=== PATIENT | male | born 1945 | race Caucasian/White ===

== ENCOUNTER → 2019-08-09 12:38 | Outpatient (CLI) | payer MEDICARE, BC, SELFPAY ==
[2019-08-09 13:28] LABS: Add Manual Diff / Slide Review NO; Basophils Absolute Auto 100 /uL (0-100); Eosinophils Absolute Auto 300 /uL (0-450); Eosinophils Percent Auto 3.3 % (2-4); Hematocrit 36.6 % (41-53); Hemoglobin 12.9 g/dL (13.5-17.5); Lymphocytes Absolute Auto 2300 /uL (1100-4500); Lymphocytes Percent Auto 25.2 % (25-40); Mean Corpuscular HGB Conc 35.2 % (30-36); Mean Corpuscular Hemoglobin 34.4 PG (26-34); Mean Corpuscular Volume 97.6 fL (80-100); Monocytes Absolute Auto 700 /uL (0-900); Monocytes Percent Auto 8.3 % (3-14); Neutrophils Absolute Auto 5600 /uL (1500-7000); Neutrophils Percent Auto 62.2 % (50-75); Platelet Count 250 X10^3/uL (150-400); Red Blood Cell Count 3.75 X10^6/uL (4.5-5.9); Red Cell Distribution Width 13.8 % (11.6-14.8)
[2019-08-09 15:27] LABS: Alanine Aminotransferase 24 IU/L (21-72); Albumin 4.8 g/dL (3.5-5.0); Albumin Globulin Ratio 1.4 (1.0-2.8); Alkaline Phosphatase 57 U/L (38-126); Aspartate Aminotransferase 34 IU/L (17-59); Bilirubin Total 0.9 mg/dL (0.2-1.3); Blood Urea Nitrogen 23 mg/dL (9-20); Calcium 9.9 mg/dL (8.4-10.2); Carbon Dioxide 31 mmol/L (22-32); Chloride 101 mmol/L (98-107); Cholesterol 171 mg/dL (140-199); Estimated Glomerular Filt Rate > 60.0 mL/min (>60); Globulin 3.5 g/dL (1.7-4.1); Glucose 88 mg/dL (80-110); HDL Cholesterol 57 mg/dL (40-60); HEMOLYSIS < 15 (0-50); LDL Cholesterol Calculated 100 mg/dL (<100); Sodium 140 mmol/L (137-145); Total Protein 8.3 g/dL (6.3-8.2); Triglycerides 71 mg/dL (35-150)
[2019-08-09 15:34] LABS: Microalbumi Creatinin Ratio Ur 21.6 ug/mg CR (<30); Microalbumin Urine Random 1.3 mg/dL (0-1.6)
[2019-08-09 15:42] LABS: Free T3, Triiodothyronine Free 3.06 pg/mL (2.77-5.27); Free T4, Direct Thyroxine 0.93 ng/dL (0.78-2.19)
[2019-08-09 15:56] LABS: Thyroid Stimulating Hormone 1.89 uIU/mL (0.47-4.68)
[2019-08-09 16:18] LABS: Hep C Virus Ab w/Reflex Quant NEGATIVE s/c (NEGATIVE)
== END ==
PROVIDERS: Family Provider Family Medicine; Visit Provider Nurse Practitioner
DX: D64.9 Anemia, unspecified (principal); I10 Essential (primary) hypertension; R00.2 Palpitations
CPT/HCPCS: 36415; 80053; 80061; 82043; 82570; 84439; 84443; 84481; 85025; 86803

== ENCOUNTER → 2019-08-13 13:55 | Outpatient (CLI) | payer MEDICARE, BC, SELFPAY ==
--- NOTE | 2019-08-24 08:04 | P.HOLT.S_ITS ---
Batch Or Continuous Still Operator Report Referral & Results Date Patient Seen: 08/13/19 Requesting provider: Dai Chavez Indication: Arrhythmia Duration of monitoring (days): 4 Diary information: There were 0 patient triggered events and 0 patient diary entries Data: Minimum heart rate identified was 41 beats per minute at 08:15 on 08/14/2019 Maximum sinus heart rate was 139 beats per minute at 16:06 on 08/15/2019 Maximum overall heart rate was 197 beats per minute at 16:30 on 08/15/2019 during a run of SVT Less than 1% of identified beats were supraventricular ectopic in origin Approximately 4.3% of identified beats were ventricular ectopic in origin including ventricular bigeminy and ventricular trigeminy. There was a 36.2nd run of ventricular trigeminy and a 19.2nd run of ventricular bigeminy identified Patient also with multifocal ventricular premature depolarizations Patient 20 runs of SVT the longest lasting 23.4 seconds at a rate of 172 beats per minute Impression: Patient with significant burden of PVCs as above Patient also with rare episodes of short SVT Clinical correlation suggested
== END ==
PROVIDERS: Family Provider Family Medicine; Visit Provider Nurse Practitioner
DX: I49.9 Cardiac arrhythmia, unspecified (principal)
CPT/HCPCS: 0296T; 0298T

== ENCOUNTER → 2019-08-23 14:46 | Outpatient (CLI) | payer MEDICARE, BC, SELFPAY ==
--- NOTE | 2019-08-23 15:00 | DI.ECHO.S_ITS ---
Echocardiogram Report + + :Name: ROSETTA NAYLOR Study Date: 08/23/2019 Height: 72 in : :[facility] Weight: 174 lb : : Gender: Male BSA: 2.0 m2 : :: 1945 Age: 73 yrs BP: 138/82 mmHg: :Reason For Study: IRREGULAR HEART RATE : : Performed By: [facility] Staff : :Referring: ARTHUR LUNA : + + Interpretation Summary The ejection fraction is estimated to be 60-65%. The left atrium is moderately dilated. There is mild mitral valve prolapse. There is mild to moderate mitral regurgitation. The mitral regurgitant jet is eccentrically directed. There is mild aortic valve sclerosis. There is mild aortic regurgitation. There is trace tricuspid regurgitation. The right ventricular systolic pressure is estimated to be at least 31 mmHg based on an estimated right atrial pressure of 8 mm Hg. Procedure: A two-dimensional transthoracic echocardiogram with color flow and Doppler was performed. The study quality was technically good. There is no prior echocardiogram noted for this patient. The patient was in normal sinus rhythm during the exam. Left Ventricle: The left ventricle is normal in size. There is mild asymmetric left ventricular hypertrophy. The ejection fraction is estimated to be 60-65%. Left ventricular wall motion is normal. Right Ventricle: The right ventricle is mildly dilated. The right ventricular systolic function is normal. Atria: The left atrium is moderately dilated. The right atrium is mildly dilated. The interatrial septum is intact with no evidence for an atrial septal defect. Mitral Valve: The mitral valve is normal in structure and function. There is mild mitral valve prolapse. There is mild to moderate mitral regurgitation. The mitral regurgitant jet is eccentrically directed. Aortic Valve: The aortic valve is trileaflet. The aortic valve opens well. There is mild aortic valve sclerosis. There is mild aortic regurgitation. Tricuspid Valve: The tricuspid valve is normal in structure and function. There is trace tricuspid regurgitation. The right ventricular systolic pressure is estimated to be at least 31 mmHg based on an estimated right atrial pressure of 8 mm Hg. Pulmonic Valve: The pulmonic valve is normal in structure and function. There is mild pulmonic regurgitation. Great Vessels: The aortic root is normal size. The dimensions of the ascending aorta are normal. The pulmonary artery is normal size. Pericardium/ Pleura There is no pericardial effusion. There is no pleural effusion. MMode/2D Measurements & Calculations LVIDd: 5.4 cm LVOT diam: 2.3 cm LVIDs: 3.5 cm Ao root diam: 3.6 cm FS: 35.1 % EPSS: 0.66 cm IVSd: 1.2 cm LVPWd: 1.0 cm LV fernández. diameter/BSA (cm/m^2): 2.7 LV sys. diameter/BSA (cm/m^2): 1.7 LA A2 area: 30.4 cm2 RA area: 24.6 cm2 LA A4 area: 27.3 cm2 LA length (vol): 6.2 cm LA vol: 113.6 ml LA vol index: 56.6 ml/m2 TAPSE: 3.9 cm Doppler Measurements & Calculations Ao V2 max: 169.7 cm/sec LVOT Max Greg: 119.5 cm/sec Ao V2 mean: 121.5 cm/sec LV V1 max P.7 mmHg Ao max P.5 mmHg LV V1 VTI: 28.8 cm Ao mean P.5 mmHg ROCAEL(I,D): 3.3 cm2 Ao V2 VTI: 37.0 cm ROCAEL(V,D): 3.0 cm2 sev ratio: 0.78 ROCAEL indexed to BSA (cm^2/m^2): 1.7 AI P1/2t: 669.6 msec AI dec slope: 192.0 cm/sec2 MV E max greg: 42.7 cm/sec TR max greg: 228.8 cm/sec MV A max greg: 34.6 cm/sec TR max P.0 mmHg MV E/A: 1.2 PA V2 max: 66.3 cm/sec Med Peak E' Greg: 8.2 cm/sec PA V2 mean: 49.5 cm/sec E/E' med: 5.2 PA mean P.0 mmHg Lat Peak E' Greg: 10.0 cm/sec PA pr(Accel): 6.6 mmHg E/E' lat: 4.3 PA Accel Time: 0.16 sec E/e' average: 4.7 MV dec time: 0.24 sec SV(LVOT): 122.9 ml _ Reading Physician:04:29 PM
== END ==
PROVIDERS: Visit Provider Nurse Practitioner
DX: I08.0 Rheumatic disorders of both mitral and aortic valves (principal); I49.9 Cardiac arrhythmia, unspecified
CPT/HCPCS: C8929

== ENCOUNTER 2019-08-29 15:05 | Emergency (ER) | payer MEDICARE, BC, SELFPAY ==
[2019-08-29 15:13] VITALS: BP 182/100; PULSE 87; RESP 22; O2SAT 100
[2019-08-29 15:17] VITALS: TEMP 37
--- NOTE | 2019-08-29 15:27 | PC.NURSE ---
Patient reports waking in a cold sweat the other night and feeling ill Patient states he has been having pounding or irregular heart beats for a long time. Dr told him he needs to see a job service consultant for palpations and hypertension. Had noticed some swelling in ankles bilaterally a few weeks ago that took him into his PCP. Swelling has resolved how. Patient is taking a [facility].
[2019-08-29 15:31] LABS: Add Manual Diff / Slide Review NO; Basophils Absolute Auto 100 /uL (0-100); Basophils Percent Auto 0.8 % (0-2); Eosinophils Absolute Auto 200 /uL (0-450); Eosinophils Percent Auto 1.8 % (2-4); Hematocrit 39.1 % (41-53); Hemoglobin 13.4 g/dL (13.5-17.5); Lymphocytes Absolute Auto 3100 /uL (1100-4500); Lymphocytes Percent Auto 30.1 % (25-40); Mean Corpuscular HGB Conc 34.3 % (30-36); Mean Corpuscular Hemoglobin 33.3 PG (26-34); Mean Corpuscular Volume 97.2 fL (80-100); Monocytes Absolute Auto 700 /uL (0-900); Monocytes Percent Auto 6.4 % (3-14); Neutrophils Absolute Auto 6200 /uL (1500-7000); Neutrophils Percent Auto 60.9 % (50-75); Platelet Count 222 X10^3/uL (150-400); Red Blood Cell Count 4.02 X10^6/uL (4.5-5.9); Red Cell Distribution Width 13.8 % (11.6-14.8); White Blood Cell Count 10.2 X10^3/uL (4.5-11.0)
--- NOTE | 2019-08-29 15:45 | ED.ARRPALP ---
HPI - Arrhythmia/Palpitations General Chief Complaint: Arrhythmia/Palpitations Stated Complaint: heart problems Time Seen by Provider: 08/29/19 15:15 Source: patient Mode of arrival: Ambulatory Limitations: no limitations History of Present Illness HPI narrative: 73-year-old male here for evaluation of several weeks/months of episodes of palpitations. He states he does get somewhat lightheaded when these events occur however has never had chest pain or shortness of breath. Has seen his primary doctor for this. Was recently started on blood pressure medication however is palpitations started before this medication. He states that over the past several days he has noticed the symptoms have been worsening. They have been coming more often and more persistent and lasting longer. He recently had an echocardiogram. He also recently had a Holter monitor. He states that his primary doctor wants him to see a compliance tester but he has not done this yet. Related Data Previous Rx's Medication Instructions Recorded lisinopril 2.5 mg tablet 2.5 mg PO DAILY #30 tab 08/13/19 Allergies Allergy/AdvReac Type Severity Reaction Status Date / Time aspirin [ASPIRIN] Allergy Unknown Unverified 08/06/19 15:05 Horse/Equine Containing Allergy Unknown Unverified 08/06/19 15:05 Products [HORSE/EQUINE CONTAINING PRODUCTS] Review of Systems Constitutional Constitutional: Denies fever(s) Cardiovascular Cardiovascular: Denies chest pain, Reports palpitations, Denies dyspnea and Denies dyspnea on exertion Respiratory Respiratory: Denies cough, Denies dyspnea and Denies dyspnea on exertion Gastrointestinal Gastrointestinal: Denies abdominal pain, Denies nausea and Denies vomiting Musculoskeletal Musculoskeletal: Denies myalgias and Denies arthralgias Integumentary/Breasts Skin/Breast: Denies lesions and Denies rash Neurologic Neurologic: Denies behavioral changes Psychiatric Psychiatric: Denies behavioral changes Endocrine Endocrine: Reports palpitations Hematologic/Lymphatic Hematologic/Lymphatic: Denies easy bleeding and Denies easy bruising Patient History Medical History Anxiety (Inactive) Edema of both ankles (Inactive) Hyperlipidemia LDL goal <100 (Inactive) Hypertension (Inactive) Irregular heartbeat (Inactive) Social History Smoking Status: Former smoker alcohol intake frequency: a few times a month Exam Initial Vital Signs Initial Vital Signs: Vital Signs Pulse Rate 87 08/29/19 15:13 Respiratory Rate 22 08/29/19 15:13 Blood Pressure 182/100 H 08/29/19 15:13 Pulse Oximetry 100 08/29/19 15:13 Const General: cooperative and comfortable Orientation: alert, awake and oriented x3 HENMT Head: normal to inspection and normocephalic Resp Effort & Inspection: normal respiratory effort Auscultation: clear to auscultation bilaterally Cardio Rate: regular rate Rhythm: regular rhythm Pulses: radial pulses present GI Inspection: non-distended Palpation: soft, No firm and No tender Skin Lesions: no lesions Rashes: no rashes Neuro General: alert, awake and oriented x3 Cognition: normal cognition Speech: speech normal Extrem General: normal to inspection and capillary refill normal Psych Appearance: grossly normal and well kempt Course Orders Ordered: ED Orders 08/29/19 15:15 CBC Auto Diff [Complete Blood Count AUTO DIFF] Stat Comprehensive Metabolic Panel Stat Troponin I Stat 08/29/19 15:16 EKG-12 Lead Stat Vital Signs Vital signs: Vital Signs - 8 hr 08/29/19 15:13 08/29/19 15:17 08/29/19 16:30 Temperature 98.6 F Pulse Rate 87 52 L Respiratory Rate 22 16 Blood Pressure 182/100 H Blood Pressure [Right Arm] 133/72 Pulse Oximetry 100 98 08/29/19 17:01 08/29/19 18:20 Temperature Pulse Rate 60 58 L Respiratory Rate 14 16 Blood Pressure 152/82 H Blood Pressure [Right Arm] 155/70 H Pulse Oximetry 99 97 MDM - Arrhythmia/Palpitations Medical Records Attestation: I reviewed the patient's medical records. Lab Data Attestation: I reviewed the patient's lab results. Result diagrams: 08/29/19 15:15 08/29/19 15:15 Labs: Lab Results 08/29/19 08/29/19 Range/Units 15:15 15:15 WBC 10.2 (4.5-11.0) X10^3/uL RBC 4.02 L (4.5-5.9) X10^6/uL Hgb 13.4 L (13.5-17.5) g/dL Hct 39.1 L (41-53) % MCV 97.2 (80-100) fL MCH 33.3 (26-34) PG MCHC 34.3 (30-36) % RDW 13.8 (11.6-14.8) % Plt Count 222 (150-400) X10^3/uL Neut % (Auto) 60.9 (50-75) % Lymph % (Auto) 30.1 (25-40) % Montgomery % (Auto) 6.4 (3-14) % Eos % (Auto) 1.8 L (2-4) % Baso % (Auto) 0.8 (0-2) % Neut # (Auto) 6200 (8395-4170) /uL Lymph # (Auto) 3100 (8622-0462) /uL Montgomery # (Auto) 700 (0-900) /uL Eos # (Auto) 200 (0-450) /uL Baso # (Auto) 100 (0-100) /uL Sodium 138 (137-145) mmol/L Potassium 3.9 (3.4-5.1) mmol/L Chloride 102 (98-107) mmol/L Carbon Dioxide 24 (22-32) mmol/L BUN 25 H (9-20) mg/dL Creatinine 0.80 (0.66-1.25) mg/dL Estimated GFR > 60.0 (>60) mL/min BUN/Creatinine Ratio 31.3 H (6-22) Glucose 106 (80-110) mg/dL Calcium 9.7 (8.4-10.2) mg/dL Total Bilirubin 1.0 (0.2-1.3) mg/dL AST 49 (17-59) IU/L ALT 33 (<50) IU/L Alkaline Phosphatase 63 (38-126) U/L Troponin I < 0.012 (0.01-0.034) ng/mL Total Protein 8.5 H (6.3-8.2) g/dL Albumin 5.0 (3.5-5.0) g/dL Globulin 3.5 (1.7-4.1) g/dL Albumin/Globulin Ratio 1.4 (1.0-2.8) Imaging Data Event monitor: Radiologist's impression: Felipe Dominique 73 M [address] [address] Bow String Maker Report Patient: NakulMerlin chavisur BMR#: [id number] : 6Acct:[id number] Age/Sex: 73 / M Date of Service: 08/13/19 Provider: Mann Oquendo MD Bow String Maker Report Referral & Results Date Patient Seen: 08/13/19 Requesting provider: Dai Chavez Indication: Arrhythmia Duration of monitoring (days): 4 Diary information: There were 0 patient triggered events and 0 patient diary entries Data: Minimum heart rate identified was 41 beats per minute at 08:15 on 08/14/2019 Maximum sinus heart rate was 139 beats per minute at 16:06 on 08/15/2019 Maximum overall heart rate was 197 beats per minute at 16:30 on 08/15/2019 during a run of SVT Less than 1% of identified beats were supraventricular ectopic in origin Approximately 4.3% of identified beats were ventricular ectopic in origin including ventricular bigeminy and ventricular trigeminy. There was a 36.2nd run of ventricular trigeminy and a 19.2nd run of ventricular bigeminy identified Patient also with multifocal ventricular premature depolarizations Patient 20 runs of SVT the longest lasting 23.4 seconds at a rate of 172 beats per minute Impression: Patient with significant burden of PVCs as above Patient also with rare episodes of short SVT Clinical correlation suggested Signed By:<Electronically signed by Mann Oquendo MD> ECG Data Attestation: I personally reviewed and interpreted this ECG as follows: Prior ECG tracings: not available for review Interpretation: Sinus rhythm Occasional PVC Ventricular rate is 79 Normal axis Normal QRS Normal QTC No ST T wave changes MDM Narrative Medical decision making narrative: Patient's Holter monitor results are included in this note for reference purposes only. Appears that he has had some episodes of SVT infrequent PVCs. He had PVCs on his EKG here however no other ectopy during his time here in the ER. His labs are unremarkable. No fevers. I did discuss the patient that he should talk to his primary doctor and follow up with Cardiology. We discussed return precautions and follow-up instructions. He expressed understanding and agreement with plan. Discharge Plan Departure Patient Disposition: Home Clinical Impression: Palpitations Discharge Date/Time: 08/29/19 18:21 Instructions: Arrhythmias Activity Restrictions/Additional Instructions: Continue all of her medications as directed. Contact your primary doctor for follow-up. Return to the emergency department for any new or worsening symptoms like we discussed. Prescriptions: No Action lisinopril 2.5 mg tablet 2.5 mg PO DAILY Qty: 30 RF: 3 Hold Instructions: Home Medication placed on hold at Doctor's office Referrals: Dai Chavez ARNP [Primary Care Provider] -
[2019-08-29 16:30] VITALS: BP 133/72; PULSE 52; RESP 16; O2SAT 98
[2019-08-29 16:35] LABS: Alanine Aminotransferase 33 IU/L (<50); Albumin Globulin Ratio 1.4 (1.0-2.8); Alkaline Phosphatase 63 U/L (38-126); Aspartate Aminotransferase 49 IU/L (17-59); BUN Creatinine Ratio 31.3 (6-22); Blood Urea Nitrogen 25 mg/dL (9-20); Calcium 9.7 mg/dL (8.4-10.2); Carbon Dioxide 24 mmol/L (22-32); Chloride 102 mmol/L (98-107); Estimated Glomerular Filt Rate > 60.0 mL/min (>60); Globulin 3.5 g/dL (1.7-4.1); Glucose 106 mg/dL (80-110); HEMOLYSIS 19 (0-50); Potassium 3.9 mmol/L (3.4-5.1); Sodium 138 mmol/L (137-145); Total Protein 8.5 g/dL (6.3-8.2)
[2019-08-29 16:47] LABS: Troponin I < 0.012 ng/mL (0.01-0.034)
[2019-08-29 17:01] VITALS: BP 155/70; PULSE 60; RESP 14; O2SAT 99
[2019-08-29 18:20] VITALS: BP 152/82; PULSE 58; RESP 16; O2SAT 97
== END 2019-08-29 18:21 | disposition home or self-care (01) ==
PROVIDERS: Emergency Provider Emergency Medicine; Family Provider Nurse Practitioner; PCP Nurse Practitioner
DX: R00.2 Palpitations (principal)
CPT/HCPCS: 36415; 80053; 84484; 85025; 93005; 99283; 99284

== ENCOUNTER 2019-09-22 00:10 | Emergency (ER) | payer MEDICARE, BC, SELFPAY ==
[2019-09-22 00:13] VITALS: BP 155/85; PULSE 70; RESP 20; TEMP 36.9; O2SAT 98
[2019-09-22 01:31] LABS: Bacteria Urine None Seen
[2019-09-22 01:51] LABS: Bilirubin Urine UA 1+ (NEGATIVE); Glucose Urine UA NEGATIVE (Negative); Ketones Urine UA TRACE (NEGATIVE); Nitrite Urine UA NEGATIVE (Negative); Occult Blood Urine UA 3+ (Negative); Protein Urine UA 2+ (Negative); Specific Gravity Urine UA 1.015 (1.000-1.035); Urobilinogen Urine UA 0.2 E.U./dL (0.2); pH Urine UA 6.5 (4.5-8.0)
[2019-09-22 02:20] LABS: Appearance Urine UA CLOUDY; Color Urine UA BROWN
[2019-09-22 02:21] LABS: Ictotest Urine Negative (Negative)
[2019-09-22 02:22] LABS: Culture Indicated Urine Cult Not Indicated; RBC Urine >100/HPF (0-5/HPF); WBC Urine 1-5/HPF (0-5/HPF)
--- NOTE | 2019-09-22 02:48 | ED.MALEGU ---
HPI - Male Genitourinary General Chief complaint: Urogenital-Male Stated complaint: blood in urine Time Seen by Provider: 09/22/19 02:48 Source: patient and family () Mode of arrival: Ambulatory Limitations: no limitations History of Present Illness HPI Narrative: 74-year-old male comes to the emergency department with complaint of blood in his urine. Patient states that he noticed it was oseguera earlier in the notice redness and then noticed blood clots. He states he has not any pain. No fevers or chills. No chest pain, no shortness of breath, no lightheadedness or dizziness. Denies any abdominal pain or flank pain. Denies any testicular pain or penile pain. Patient states he has not had this before. He denies any blood thinners or aspirin. He states he has had urine or bladder infections in the past did even know it was only noted on urinalysis. Patient denies any other symptoms. Related Data Previous Rx's Medication Instructions Recorded lisinopril 2.5 mg tablet 2.5 mg PO DAILY #30 tab 08/13/19 nitrofurantoin monohyd/m-cryst 100 mg PO Q12H 7 Days #14 cap 09/22/19 [Macrobid] Allergies Allergy/AdvReac Type Severity Reaction Status Date / Time aspirin [ASPIRIN] Allergy Unknown Unverified 09/03/19 15:04 Horse/Equine Containing Allergy Unknown Unverified 09/03/19 15:04 Products [HORSE/EQUINE CONTAINING PRODUCTS] Review of Systems Review of Systems ROS Unobtainable: All systems reviewed & are unremarkable except as noted in HPI and below Patient History Medical History Actinic keratosis (Chronic ~2003) Allergies (Chronic ~1989) Anxiety (Inactive) BPH (benign prostatic hyperplasia) (Chronic ~1999) Edema of both ankles (Inactive) GERD (gastroesophageal reflux disease) (Chronic ~2015) History of elevated PSA (Chronic) History of urinary incontinence (Chronic ~2018) Hyperlipidemia LDL goal <100 (Acute) Hypertension (Acute) Irregular heartbeat (Inactive) Measles (Resolved) Plantar fasciitis (Chronic ~2013) Plantar warts (Inactive) Tinnitus (Chronic ~2009) Vision disorder (Chronic) Surgical History Anesthesia (Resolved) History of hernia surgery (Resolved ~2003) Status post trigger finger release (Resolved ~2017) Family History Father Cancer Mother Alzheimer's disease Sister Cancer Grandfather History of heart disease Grandmother Alzheimer's disease Social History Smoking Status: Former smoker Smoking Status: Former smoker alcohol intake frequency: 0-2 drinks per day Exam Narrative Exam Narrative: GENERAL: Alert and oriented x three, well-nourished, well-appearing male in no acute distress. HEENT: Head normocephalic, atraumatic, EOMI, pupils reactive, face symmetric, moist mucous membranes NECK: Supple, full range of motion CARDIOVASCULAR: Regular rate and rhythm without murmurs, rubs or gallops. RESPIRATORY: Breath sounds equal bilaterally, no wheezes rales or rhonchi. ABDOMEN: Soft, nontender. Normoactive bowel sounds all 4 quadrants. No guarding or rebound, rigidity, no mass : No CVA tenderness. Male: normal external examination, no penile discharge or lesions, testicles non-tender, cremasteric reflex intact, no inguinal hernias noted. EXTREMITIES: Normal range of motion, no clubbing or edema. Neurovascularly intact NEUROLOGICAL: Cranial nerves II through XII grossly intact. Moving all extremities SKIN: Warm, dry, no petechiae, no rashes or lesions. Initial Vital Signs Initial Vital Signs: Vital Signs Temperature 98.5 F 09/22/19 00:13 Pulse Rate 70 09/22/19 00:13 Respiratory Rate 20 09/22/19 00:13 Blood Pressure 155/85 H 09/22/19 00:13 Pulse Oximetry 98 09/22/19 00:13 Course Orders Ordered: ED Orders 09/22/19 01:05 Ictotest Urine Stat Urinalysis and Microscopic Stat Urine Culture Stat Discontinued Medications Nitrofurantoin Macrocrystals (Macrobid 100mg Prepack) 1 bottle MISC SEEINSTR ONE Stop: 09/22/19 03:07 Last Admin: 09/22/19 03:20 Dose: 1 bottle Documented by: CANDIS Vital Signs Vital signs: Vital Signs - 8 hr 09/22/19 00:13 09/22/19 03:23 Temperature 98.5 F Pulse Rate 70 67 Respiratory Rate 20 16 Blood Pressure 155/85 H Blood Pressure [Left Arm] 151/67 H Pulse Oximetry 98 98 MDM - Male Genitourinary Lab Data Attestation: I reviewed the patient's lab results. Labs: Lab Results 09/22/19 Range/Units 01:05 Urine Color Brown Urine Appearance Cloudy Urine pH 6.5 (4.5-8.0) Ur Specific Alpine 1.015 (1.000-1.035) Urine Protein 2+ H (Negative) Urine Glucose (UA) Negative (Negative) g/dL Urine Ketones Trace H (NEGATIVE) Urine Occult Blood 3+ H (Negative) Urine Nitrate Negative (Negative) Urine Bilirubin 1+ H (NEGATIVE) Urine Ictotest Negative (Negative) Urine Urobilinogen 0.2 (0.2) E.U./dL Ur Leukocyte Esterase Not Reportable Urine RBC >100/hpf (0-5/HPF) Urine WBC 1-5/hpf (0-5/HPF) Urine Bacteria None seen (None) Ur Culture Indicated? Cult not indicated Micro UA Comment * [facility] [place] Narrative Medical decision making narrative: Patient comes in with complaint of painless hematuria. Patient's urinalysis states they cannot evaluate leukocyte esterase based on coloration, negative for nitrates but does have a few white blood cells. Patient has had bladder infections in the so discuss treating him with antibiotics empirically with urine culture pending. He is to follow up with primary care for recheck to make sure that his urinalysis is negative, we did discuss that he will need further workup if he continues to have hematuria possibly including cystoscopy, imaging and labs. Patient feels comfortable with this plan. He has been asymptomatic otherwise and states that it now sort of tannish in color and no longer bright red blood when urinating in the ED. Discharge Plan Departure Patient Disposition: Home Clinical Impression: Hematuria Discharge Date/Time: 09/22/19 03:25 Instructions: DI for Hematuria Activity Restrictions/Additional Instructions: Follow up with primary care or urology for recheck next several days. Take antibiotics until gone. If your hematuria does not resolve on a urinalysis you will need have further workup to evaluate for other causes of hematuria including imaging and possibly cystoscopy. Return the ER for fevers greater 100.4 F, worsening hematuria, lightheadedness, passing out, new chest pain or shortness of breath, new abdominal or flank pain, testicular pain, penile discharge or other new or concerning symptoms. Prescriptions: New nitrofurantoin monohyd/m-cryst [Macrobid] 100 mg capsule 100 mg PO Q12H 7 Days Qty: 14 RF: 0 No Action lisinopril 2.5 mg tablet 2.5 mg PO DAILY Qty: 30 RF: 3 Hold Instructions: Home Medication placed on hold at Doctor's office Referrals: Dai Chavez ARNP [Primary Care Provider] -
[2019-09-22] MEDS: NITROFURANTOIN 100MG PREPACK 1 BOTTLE MISC (03:20)
[2019-09-22 03:23] VITALS: BP 151/67; PULSE 67; RESP 16; O2SAT 98
== END 2019-09-22 03:25 | disposition home or self-care (01) ==
PROVIDERS: Emergency Provider Emergency Medicine; Family Provider Nurse Practitioner; PCP Nurse Practitioner
DX: R31.9 Hematuria, unspecified (principal)
CPT/HCPCS: 81001; 87086; 99282; 99283

== ENCOUNTER → 2019-11-24 11:20 | Outpatient (CLI) | payer MEDICARE, BC, SELFPAY ==
[2019-11-24 12:48] LABS: BUN Creatinine Ratio 22.7 (6-22); Blood Urea Nitrogen 25 mg/dL (9-20); Calcium 9.7 mg/dL (8.4-10.2); Carbon Dioxide 25 mmol/L (22-32); Chloride 105 mmol/L (98-107); Cholesterol 173 mg/dL (140-199); Estimated Glomerular Filt Rate > 60.0 mL/min (>60); Glucose 94 mg/dL (80-110); HDL Cholesterol 47 mg/dL (40-60); HEMOLYSIS < 15 (0-50); LDL Cholesterol Calculated 100 mg/dL (<100); Sodium 141 mmol/L (137-145); Triglycerides 132 mg/dL (35-150)
[2019-11-24 13:31] LABS: Free T4, Direct Thyroxine 1.01 ng/dL (0.78-2.19)
[2019-11-24 13:45] LABS: Thyroid Stimulating Hormone 3.27 uIU/mL (0.47-4.68)
[2019-11-26 12:29] LABS: Alanine Aminotransferase 19 IU/L (<50); Albumin 4.6 g/dL (3.5-5.0); Albumin Globulin Ratio 1.3 (1.0-2.8); Alkaline Phosphatase 54 U/L (38-126); Aspartate Aminotransferase 36 IU/L (17-59); Bilirubin Total 0.8 mg/dL (0.2-1.3); Bilirubin Unconjugated 0.7 mg/dL (0.0-1.1); Globulin 3.5 g/dL (1.7-4.1); HEMOLYSIS < 15 (0-50); Total Protein 8.1 g/dL (6.3-8.2)
== END ==
PROVIDERS: Family Provider Nurse Practitioner; PCP Nurse Practitioner; Referring Provider Physician Assistant; Visit Provider Physician Assistant
DX: I47.1 Supraventricular tachycardia (principal); E78.5 Hyperlipidemia, unspecified; I10 Essential (primary) hypertension
CPT/HCPCS: 36415; 80048; 80061; 80076; 83735; 84439; 84443

== ENCOUNTER 2020-04-05 12:50 | Emergency (ER) | payer MEDICARE, BC, SELFPAY ==
[2020-04-05 13:35] VITALS: BP 161/74; PULSE 60; RESP 16; TEMP 36.9; O2SAT 97; BMI 23.6
--- NOTE | 2020-04-05 13:49 | ED_ITS ---
HPI - Male Genitourinary <TD Villarreal - Last Filed: 04/05/20 18:29> General Chief complaint: Urogenital-Male Stated complaint: bladder infection x5 days Time Seen by Provider: 04/05/20 12:52 Source: patient Mode of arrival: Ambulatory Limitations: no limitations History of Present Illness HPI Narrative: 74yo male with history of BPH, presents to the emergency department for 4 days of increased urinary frequency, bladder fullness, and fatigue. Patient states he has had two urinary tract infections in the past related to prostate issues. He states he has an enlarged prostate for years, he saw I urologist a few months ago and was prescribed tamsulosin. Patient states he has not taken this as he ?is afraid of getting dizzy . Patient denies any back pain, blood in the urine, or pain with urination but did states that he feels more tired and achy at night. Patient denies fevers, chest pain, shortness of breath, dizziness, blood in urine, recent falls, or any other conc erns. Patient denies any other major medical issues, does not take any medications. He states that he regularly sees a lead handler. Denies concerns for STIs. Related Data Previous Rx's Medication Instructions Recorded losartan 25 mg tablet 12.5 mg PO DAILY #30 tab 11/27/19 nitrofurantoin monohyd/m-cryst 100 mg PO Q12H 7 Days #14 cap 04/05/20 [Macrobid] Allergies Allergy/AdvReac Type Severity Reaction Status Date / Time aspirin [ASPIRIN] Allergy Unknown Verified 04/05/20 13:57 Horse/Equine Containing Allergy Unknown Verified 04/05/20 13:57 Products [HORSE/EQUINE CONTAINING PRODUCTS] Review of Systems <TD Villarreal - Last Filed: 04/05/20 18:29> Review of Systems Narrative: REVIEW OF SYSTEMS: GENERAL: Denies fever or chills. HENT: No head trauma. CARDIOVASCULAR: No chest pain. RESPIRATORY: No shortness of breath or cough. GASTROINTESTINAL: No nausea, vomiting, or abdominal pain. GENITOURINARY: Reports increased urinary frequency, no concerns for STIs. MUSCULOSKELETAL: No trauma. INTEGUMENTARY: No rash, lesions, or pruritus. NEURO: No memory loss or confusion. Patient History <TD Villarreal - Last Filed: 04/05/20 18:29> Medical History Actinic keratosis (Chronic ~2003) Allergies (Chronic ~1989) Anxiety (Inactive) Bladder incontinence (Acute) BPH (benign prostatic hyperplasia) (Chronic ~1999) Edema of both ankles (Inactive) GERD (gastroesophageal reflux disease) (Chronic ~2015) History of elevated PSA (Chronic) History of urinary incontinence (Chronic ~2018) Hyperlipidemia LDL goal <100 (Acute) Hypertension (Acute) Irregular heartbeat (Inactive) Measles (Resolved) Plantar fasciitis (Chronic ~2013) Plantar warts (Inactive) Tinnitus (Chronic ~2009) Vision disorder (Chronic) Surgical History Anesthesia (Resolved) History of hernia surgery (Resolved ~2003) Status post trigger finger release (Resolved ~2017) Family History Father Cancer Mother Alzheimer's disease Sister Cancer Grandfather History of heart disease Grandmother Alzheimer's disease Social History Smoking Status: Former smoker Smoking Status: Former smoker alcohol intake frequency: 0-2 drinks per day Substance Use Type: marijuana Exam <TD Villarreal - Last Filed: 04/05/20 18:29> Initial Vital Signs Initial Vital Signs: Vital Signs Temperature 98.5 F 04/05/20 13:35 Pulse Rate 60 04/05/20 13:35 Respiratory Rate 16 04/05/20 13:35 Blood Pressure 161/74 H 04/05/20 13:35 Pulse Oximetry 97 04/05/20 13:35 PHYSICAL EXAMINATION: GENERAL: Well groomed, alert, and cooperative. Answers questions promptly and appropriately. Vital signs noted. HENT: Normocephalic, atraumatic. Hearing intact. EYES: No periorbital swelling. CARDIOVASCULAR: Regular rate. Regular rate and rhythm, S1 and S2 sounds heard without murmur. RESPIRATORY: Normal respiratory rate, trachea midline, airway patent. No stridor, nasal flaring or accessory muscle use. Lungs clear without wheezes, rhonchi, or crackles. GASTROINTESTINAL: Bowel sounds normoactive. Abdomen is soft and non-tender. No organomegaly, no palpable masses. GENITALURINARY: No CVA tenderness. MUSCULOSKELETAL: Normal gait and coordination. Equal tone and mass bilaterally. SKIN: Warm, dry, soft, appropriate color for ethnicity. No lesions, rashes, or wounds to visulized areas. NEURO: Alert and Oriented X 3. Good coordination. No ataxia, or sensory deficits, or cognitive issues. PSYCH: Appropriate affect and mood. <Mann Donnelly MD - Last Filed: 04/06/20 07:27> Initial Vital Signs Initial Vital Signs: Vital Signs Temperature 98.5 F 04/05/20 13:35 Pulse Rate 60 04/05/20 13:35 Respiratory Rate 16 04/05/20 13:35 Blood Pressure 161/74 H 04/05/20 13:35 Pulse Oximetry 97 04/05/20 13:35 Course <TD Villarreal - Last Filed: 04/05/20 18:29> Course Course Narrative: Bladder scan was performed per nursing. Nursing reports a 1000 mL of urine in bladder prevoid, 500 mL of urine in bladder postvoid. 1415: Discussed with patient that due to residual volume of urine being greater than 300 mL urinary catheter is indicated. Patient refused, stating ?No, thankyou, I am not doing that but a palpation start taking my Flomax. I discussed the risks and benefits with patient especially that the infection can continue and or worsen if his bladder is not drained which may result in severe illness such as sepsis or . Patient understood, continued to deny catheter. Additionally, patient states he strongly request Macrobid as antibiotic as this has worked in the past. Orders Ordered: Discontinued Medications Nitrofurantoin Macrocrystals (Macrobid 100 Mg Capsule) 100 mg PO NOW ONE Stop: 04/05/20 14:17 Last Admin: 04/05/20 14:22 Dose: 100 mg Documented by: MADELEINE Heard Consultation #1: Discussed bladder scan results with , catheter indicated but patient refused. Vital Signs Vital signs: Vital Signs - 8 hr 04/05/20 13:35 04/05/20 14:24 Temperature 98.5 F 98.1 F Pulse Rate 60 53 L Respiratory Rate 16 16 Blood Pressure 161/74 H Blood Pressure [Left Arm] 174/80 H Pulse Oximetry 97 99 <Mann Donnelly MD - Last Filed: 04/06/20 07:27> Orders Ordered: Discontinued Medications Nitrofurantoin Macrocrystals (Macrobid 100 Mg Capsule) 100 mg PO NOW ONE Stop: 04/05/20 14:17 Last Admin: 04/05/20 14:22 Dose: 100 mg Documented by: MADELEINE Vital Signs Vital signs: Vital Signs - 8 hr 04/05/20 13:35 04/05/20 14:24 Temperature 98.5 F 98.1 F Pulse Rate 60 53 L Respiratory Rate 16 16 Blood Pressure 161/74 H Blood Pressure [Left Arm] 174/80 H Pulse Oximetry 97 99 MDM - Male Genitourinary <TD Villarreal - Last Filed: 04/05/20 18:29> Medical Records Attestation: I reviewed the patient's medical records. Lab Data Attestation: I reviewed the patient's lab results. Labs: Lab Results 04/05/20 Range/Units 13:41 Urine RBC 1-5/hpf D (0-5/HPF) Urine WBC 10-30/hpf H (0-5/HPF) Urine Bacteria Many (>30) H (None) Urine Mucus 1+ H (Negative) Ur Culture Indicated? Specimen cultured Urine Dip Bedside Urine Glucose Negative Bedside Urine Bilirubin - Negative Bedside Urine Ketone - Negative Urine Specific [place] 1.020 Bedside Urine Occult Blood + Bedside Urine pH 6.0 Bedside Urine Protein - Negative Bedside Urine Urobilinogen - Negative Bedside Urine Nitrite + Positive Bedside Urine Leukocytes ++ 125 Esterase MDM Narrative Medical decision making narrative: 74-year-old male with history of BPH, presents emergency department for increased urinary frequency. I suspect patient's symptoms are most likely caused by a urinary tract infection given his symptoms, history of urinary tract infection, history of BPH without medication complaints, and white blood cells and bacteria present in urinary analysis. Additionally, patient has moderate urinary tension present with a bladder scan. This most likely may be due to his chronic BPH, urinary tension may have resulted in the urinary tract infection. After an extensive conversation with patient, we recommended a urinary catheter. Patient refused even after extensive explanation of possible worsening of condition, and or sepsis. Patient was encouraged to take his tamsulosin that has been previously prescribed to him. Follow-up with urology was encouraged, he requested a referral to schedule Urology which was given. Additionally, patient requested Macrobid as an antibiotic. He states this has worked multiple times in the past and would like to stick with this antibiotic. Patient was given Macrobid due to decreased concerns for STIs. Additionally, patient has poor medication compliance as he states he ?prefers not to l take medicine and often sees a lead handler. Very strict return precautions were given for new or worsening symptoms. Patient agreed to plan of care verbalized understanding. <Mann Donnelly MD - Last Filed: 04/06/20 07:27> Lab Data Labs: Lab Results 04/05/20 Range/Units 13:41 Urine RBC 1-5/hpf D (0-5/HPF) Urine WBC 10-30/hpf H (0-5/HPF) Urine Bacteria Many (>30) H (None) Urine Mucus 1+ H (Negative) Ur Culture Indicated? Specimen cultured Urine Dip Bedside Urine Glucose Negative Bedside Urine Bilirubin - Negative Bedside Urine Ketone - Negative Urine Specific [place] 1.020 Bedside Urine Occult Blood + Bedside Urine pH 6.0 Bedside Urine Protein - Negative Bedside Urine Urobilinogen - Negative Bedside Urine Nitrite + Positive Bedside Urine Leukocytes ++ 125 Esterase Discharge Plan Departure Patient Disposition: Home Clinical Impression: Acute UTI Discharge Date/Time: 04/05/20 14:36 Instructions: DI for Urinary Tract Infection (UTI), DI for Urinary Retention in Men Activity Restrictions/Additional Instructions: Thank you for entrusting me with your care today. As discussed, your urinalysis indicates that you have a bladder infection. Your bladder scan showed over 500ml of urine in your bladder post-void. A catheter is recommended to drain the urine and prevent further infection. However, since you decline a urinary catheter, I highly recommend starting your tamsulosin/Flomax that has been prescribed you earlier as soon as possible. I also recommend following up with a urologist, have placed a referral to [facility], please call the number listed below inside of an appointment. Additionally, I prescribed you an antibiotic. Take this as directed. Your urine was sent for culture in the lab, the culture will make sure that the antibiotics takes care of the bacteria causing the infection. This results will be complete in 2 days. If a change in antibiotic is needed we will give you a call. Please return emergency department for any new or worsening symptoms such as severe pain, increased urinary tension, fevers, uncontrollable vomiting, back pain, chest pain, or any other concerns. Prescriptions: New nitrofurantoin monohyd/m-cryst [Macrobid] 100 mg capsule 100 mg PO Q12H 7 Days Qty: 14 RF: 0 No Action losartan 25 mg tablet 12.5 mg PO DAILY Qty: 30 RF: 3 Referrals: Dalila Lawrence MD [Non-Staff] - Dai Chavez ARNP [Primary Care Provider] -
[2020-04-05 14:08] LABS: RBC Urine 1-5/HPF (0-5/HPF); WBC Urine 10-30/HPF (0-5/HPF)
[2020-04-05 14:09] LABS: Bacteria Urine Many (>30); Culture Indicated Urine Specimen Cultured; Mucus Urine 1+ (Negative)
[2020-04-05] MEDS: NITROFURANTOIN ER 100 MG CAPSULE PO (14:22)
[2020-04-05 14:24] VITALS: BP 174/80; PULSE 53; RESP 16; TEMP 36.7; O2SAT 99
== END 2020-04-05 14:36 | disposition home or self-care (01) ==
PROVIDERS: Emergency Provider Nurse Practitioner; Family Provider Nurse Practitioner; PCP Nurse Practitioner
DX: N39.0 Urinary tract infection, site not specified (principal)
CPT/HCPCS: 51798; 81003; 81015; 87077; 87086; 87147; 87186; 99283

== ENCOUNTER → 2021-01-21 14:21 | Outpatient (CLI) | payer MEDICARE, BC, SELFPAY ==
[2021-01-21] MEDS: COVID-19 VACC #1, MRNA(MOD) 100 MCG/0.5 ML VIAL IM (14:39)
== END ==
PROVIDERS: Family Provider Nurse Practitioner; PCP Nurse Practitioner; Visit Provider Internal Medicine
DX: Z23 Encounter for immunization (principal)
CPT/HCPCS: 0011A; 91301

== ENCOUNTER → 2021-02-18 14:20 | Outpatient (CLI) | payer MEDICARE, SELFPAY ==
[2021-02-18] MEDS: COVID-19 VACC #2, MRNA(MOD) 100 MCG/0.5 ML VIAL IM (14:25)
== END ==
PROVIDERS: Family Provider Nurse Practitioner; PCP Nurse Practitioner; Visit Provider Internal Medicine
DX: Z23 Encounter for immunization (principal)
CPT/HCPCS: 0012A; 91301

== ENCOUNTER 2021-06-24 23:56 | Emergency (ER) | payer MEDICARE, BC, SELFPAY ==
[2021-06-25 00:16] VITALS: BP 174/85; PULSE 75; RESP 14; TEMP 36.9; O2SAT 96; BMI 24.4
[2021-06-25 00:26] LABS: Appearance Urine UA CLEAR; Bilirubin Urine UA NEGATIVE (NEGATIVE); Color Urine UA YELLOW; Glucose Urine UA NEGATIVE (Negative); Ketones Urine UA NEGATIVE (NEGATIVE); Leukocyte Esterase Urine UA 3+ (NEGATIVE); Nitrite Urine UA POSITIVE (Negative); Occult Blood Urine UA 3+ (Negative); Protein Urine UA 1+ (Negative); Specific Gravity Urine UA 1.015 (1.000-1.035); Urobilinogen Urine UA 0.2 E.U./dL (0.2)
--- NOTE | 2021-06-25 00:31 | DI.CT.S_ITS ---
PROCEDURE: CT KIDNEY URETER BLADDER (KUB) INDICATIONS: Hematuria TECHNIQUE: Axial sections were acquired from the lung bases to the pubic symphysis. Coronal and sagittal reformats were performed. For radiation dose reduction, the following was used: automated exposure control, adjustment of mA and/or kV according to patient size. COMPARISON:None. FINDINGS: Image quality: Excellent. Lung bases: Unremarkable. Heart: No significant findings. URINARY: Bladder is markedly distended. There are [id number] bilateral hydronephrosis and hydroureter to the level of ureterovesical junction. No urinary stones. Prostate is enlarged. ABDOMEN: Liver: Unremarkable. Gallbladder: Not well seen Biliary ducts: Unremarkable. Pancreas: Unremarkable. Spleen: Unremarkable. Adrenal Glands: Unremarkable. Stomach and Bowel: Stomach, small bowel loops, and colon are unremarkable. Peritoneum: No abnormal intraperitoneal fluid. No free air. Ventral Wall: No hernia. Abdominal Nodes: No enlarged retroperitoneal or mesenteric lymph nodes. Vessels: Aorta and inferior vena cava are normal in size. Moderate atherosclerotic calcification. PELVIS: Pelvic Organs: Unremarkable. Pelvic Nodes: Unremarkable. Miscellaneous: No inguinal hernias are seen. Bones: Fusion of L4-L5. Retrolisthesis of L1 on L2. Degenerative disc and facet disease in lumbar spine.. IMPRESSION: 1. Markedly distended urinary bladder suspicious for bladder outlet obstruction. There is jnsvypgg-[id number] bilateral hydronephrosis and hydroureter with ureters dilated to the the level of UVJ. 2. Enlarged prostate. No significant discrepancy with the iv technician radiology preliminary report. Dictated by: Isabela José M.D. on 06/25/2021 at 7:56 Approved by: Isabela José M.D. on 06/25/2021 at 8:01
--- NOTE | 2021-06-25 00:31 | ED_ITS ---
HPI - Male Genitourinary General Chief complaint: Urogenital-Male Stated complaint: blood in urine Time Seen by Provider: 06/25/21 00:23 Source: patient and family Mode of arrival: Ambulatory Limitations: no limitations History of Present Illness HPI Narrative: Patient here with spouse. Complains of discolored urine without any pain, possible hematuria just prior to arrival. Denies any abdominal pain or pelvic pain. No back pain at this time. However last week did have unexplained lower back pain that has improved. No history of kidney stones. No dysuria or frequency. History UTI in the past 2 years. Patient states feels about the same again. Patient was in the process of seeing a urologist with [facility] in [place] before the pandemic struck last year. However unable to see anybody in the office because they stopped seeing patients and the office did close. Has not seen a urologist since then. Was being evaluated for enlarged prostate. Related Data Home Medications Medication Instructions Recorded Confirmed desonide 0.05 % lotion TOPICAL 10/24/20 10/24/20 triamcinolone acetonide 0.1 % TOPICAL 10/24/20 10/24/20 topical ointment Previous Rx's Medication Instructions Recorded cephalexin 500 mg capsule 500 mg PO BID #14 cap 06/25/21 tamsulosin 0.4 mg capsule (Flomax) 0.4 mg PO BEDTIME #30 cap 06/25/21 Allergies Allergy/AdvReac Type Severity Reaction Status Date / Time aspirin [ASPIRIN] Allergy Severe Hives Verified 10/24/20 15:15 Horse/Equine Containing Allergy Unknown Verified 04/05/20 13:57 Products [HORSE/EQUINE CONTAINING PRODUCTS] Review of Systems Review of Systems Narrative: GENERAL: Denies chills, fatigue, malaise, fever, sweats. HEENT: Denies sinus pain, ear pain, sore throat RESPIRATORY: Denies dyspnea, cough CARDIOVASCULAR: Denies chest pain, palpitations GASTROINTESTINAL: Denies nausea, vomiting, abdominal pain : Denies dysuria, frequency, complains hematuria MUSCULOSKELETAL: denies muscle or bony pain SKIN: Denies rash, skin lesions NEUROLOGIC: Denies weakness, numbness ROS Unobtainable: All systems reviewed & are unremarkable except as noted in HPI and below Patient History Medical History (Updated 06/25/21 @ 03:15 by Alfonso Lopez MD) Actinic keratosis (~2003) Allergies (~1989) Anxiety Bladder incontinence BPH (benign prostatic hyperplasia) (~1999) Edema of both ankles GERD (gastroesophageal reflux disease) (~2015) History of elevated PSA History of urinary incontinence (~2018) Hyperlipidemia LDL goal <100 Hypertension Irregular heartbeat Measles Plantar fasciitis (~2013) Plantar warts Tinnitus (~2009) Vision disorder Surgical History Anesthesia History of hernia surgery (~2003) Status post trigger finger release (~2017) Family History Father Cancer Mother Alzheimer's disease Sister Cancer Grandfather History of heart disease Grandmother Alzheimer's disease Social History Smoking Status: Former smoker Tobacco: How many years used: 30 quit status: quit date established alcohol intake: current (2 drinks per night ) substance use type: marijuana (one puff per night ) Smoking Status: Former smoker alcohol intake frequency: 0-2 drinks per day Substance Use Type: marijuana Exam Narrative Exam Narrative: GENERAL: in no distress, not toxic not dyspneic HEAD: Normocephalic. NECK: Trachea midline. CARDIOVASCULAR: Regular rate and rhythm without murmurs RESPIRATORY: Clear to auscultation. Breath sounds equal bilaterally. No wheezes, rales, or rhonchi. GASTROINTESTINAL: Abdomen soft, non-tender EXTREMITIES: No gross deformities. BACK: No flank tenderness. No CVA tenderness NEURO: AOx4. SKIN: Warm and dry PSYCH: Not anxious, is cooperative Initial Vital Signs Initial Vital Signs: Vital Signs Temperature 98.4 F 06/25/21 00:16 Pulse Rate 75 06/25/21 00:16 Respiratory Rate 14 06/25/21 00:16 Blood Pressure 174/85 H 06/25/21 00:16 Pulse Oximetry 96 06/25/21 00:16 Course Course Course Narrative: No new issues during course of stay. Orders Ordered: Discontinued Medications Cephalexin HCl (Cephalexin 250 Mg Capsule) 500 mg PO NOW ONE Stop: 06/25/21 01:44 Last Admin: 06/25/21 02:20 Dose: 500 mg Documented by: MARGARET Sodium Chloride (Normal Saline 0.9%) 1,000 mls @ 1,000 mls/hr IV BOLUS ONE Stop: 06/25/21 03:58 Last Infusion: 06/25/21 04:20 Dose: 0 mls/hr Documented by: Admin: 06/25/21 03:29 Dose: 1,000 mls/hr Documented by: MARGARET Sodium Chloride (Normal Saline 0.9%) 1,000 mls @ 1,000 mls/hr IV BOLUS ONE Stop: 06/25/21 07:24 Last Infusion: 06/25/21 07:41 Dose: 0 mls/hr Documented by: Admin: 06/25/21 06:29 Dose: 1,000 mls/hr Documented by: MARGARET Lidocaine HCl (Lidocaine 2% (Glydo) 6 Ml Gel) 6 ml TOP NOW ONE Stop: 06/25/21 01:44 Last Admin: 06/25/21 02:20 Dose: 6 ml Documented by: MARGARET Tamsulosin HCl (Tamsulosin 0.4 Mg Capsule) 0.4 mg PO NOW ONE Stop: 06/25/21 03:24 Last Admin: 06/25/21 03:30 Dose: 0.4 mg Documented by: MARGARET Reevaluation(s) Reevaluation #1: Reviewed results with patient and significant other. Agrees with treatment plan. I spoke with Urology. Follow up with Dr. Vann in the next week. Time: 03:12 Reevaluation #2: Renal function improved after 1 L of normal saline. Likely will continue to improve now that patient has Phelps catheter in place. Time: 04:59 Consultations Consultation #1: Spoke with Urology, Dr. Vann regarding exam and urinary retention as well as CT results and laboratory results. Start patient on Flomax as well as Keflex. He will see patient within a week for recheck and rescanning of the kidneys. Time: 03:12 Vital Signs Vital signs: Vital Signs - 8 hr 06/25/21 00:16 06/25/21 00:53 06/25/21 00:54 Temperature 98.4 F Pulse Rate 75 65 61 Respiratory Rate 14 Blood Pressure 174/85 H 166/75 H Pulse Oximetry 96 97 96 06/25/21 01:00 Temperature Pulse Rate 65 Respiratory Rate Blood Pressure 154/81 H Pulse Oximetry 93 MDM - Male Genitourinary Differential Diagnosis Differential diagnosis: Likely urinary tract infection and other (Kidney stone) Lab Data Result diagrams: 06/25/21 00:55 06/25/21 04:20 Labs: Lab Results 06/25/21 06/25/21 06/25/21 Range/Units 00:15 00:55 00:55 WBC 7.9 (4.5-11.0) X10^3/uL RBC 3.66 L (4.5-5.9) X10^6/uL Hgb 11.7 L (13.5-17.5) g/dL Hct 34.9 L (41-53) % MCV 95.4 (80-100) fL MCH 32.0 (26-34) PG MCHC 33.5 (30-36) % RDW 13.9 (11.6-14.8) % Plt Count 261 (150-400) X10^3/uL Neut % (Auto) 58.4 (50-75) % Lymph % (Auto) 27.9 (25-40) % [place] % (Auto) 8.4 (3-14) % Eos % (Auto) 4.2 H (2-4) % Baso % (Auto) 1.1 (0-2) % Neut # (Auto) 4600 (7462-7707) /uL Lymph # (Auto) 2200 (2032-1493) /uL [place]ard # (Auto) 700 (0-900) /uL Eos # (Auto) 300 (0-450) /uL Baso # (Auto) 100 (0-100) /uL Sodium 139 (137-145) mmol/L Potassium 4.3 (3.4-5.1) mmol/L Chloride 105 (98-107) mmol/L Carbon Dioxide 25 (22-32) mmol/L BUN 39 H (9-20) mg/dL Creatinine 1.58 H (0.66-1.25) mg/dL Estimated GFR 43.1 L (>60) mL/min BUN/Creatinine Ratio 24.7 H (6-22) Glucose 106 (80-110) mg/dL Calcium 8.9 (8.4-10.2) mg/dL Total Bilirubin 0.4 (0.2-1.3) mg/dL AST 29 (17-59) IU/L ALT 13 (<50) IU/L Alkaline Phosphatase 66 (38-126) U/L Total Protein 7.8 (6.3-8.2) g/dL Albumin 4.4 (3.5-5.0) g/dL Globulin 3.4 (1.7-4.1) g/dL Albumin/Globulin Ratio 1.3 (1.0-2.8) Urine Color Yellow Urine Appearance Clear Urine pH 6.0 (4.5-8.0) Ur Specific [place] 1.015 (1.000-1.035) Urine Protein 1+ H (Negative) Urine Glucose (UA) Negative (Negative) g/dL Urine Ketones Negative (NEGATIVE) Urine Occult Blood 3+ H (Negative) Urine Nitrate Positive H (Negative) Urine Bilirubin Negative (NEGATIVE) Urine Urobilinogen 0.2 (0.2) E.U./dL Ur Leukocyte Esterase 3+ H (NEGATIVE) Urine RBC >100/hpf H (0-5/HPF) Urine WBC 30-100/hpf H (0-5/HPF) Urine Bacteria Many (>30) H (None) Ur Culture Indicated? Specimen cultured 06/25/21 Range/Units 04:20 WBC (4.5-11.0) X10^3/uL RBC (4.5-5.9) X10^6/uL Hgb (13.5-17.5) g/dL Hct (41-53) % MCV (80-100) fL MCH (26-34) PG MCHC (30-36) % RDW (11.6-14.8) % Plt Count (150-400) X10^3/uL Neut % (Auto) (50-75) % Lymph % (Auto) (25-40) % Men[place] % (Auto) (3-14) % Eos % (Auto) (2-4) % Baso % (Auto) (0-2) % Neut # (Auto) (0334-4409) /uL Lymph # (Auto) (4645-3366) /uL Menard # (Auto) (0-900) /uL Eos # (Auto) (0-450) /uL Baso # (Auto) (0-100) /uL Sodium 137 (137-145) mmol/L Potassium 4.5 (3.4-5.1) mmol/L Chloride 108 H (98-107) mmol/L Carbon Dioxide 23 (22-32) mmol/L BUN 35 H (9-20) mg/dL Creatinine 1.32 H (0.66-1.25) mg/dL Estimated GFR 53.0 L (>60) mL/min BUN/Creatinine Ratio 26.5 H (6-22) Glucose 110 (80-110) mg/dL Calcium 8.3 L (8.4-10.2) mg/dL Total Bilirubin (0.2-1.3) mg/dL AST (17-59) IU/L ALT (<50) IU/L Alkaline Phosphatase (38-126) U/L Total Protein (6.3-8.2) g/dL Albumin (3.5-5.0) g/dL Globulin (1.7-4.1) g/dL Albumin/Globulin Ratio (1.0-2.8) Urine Color Urine Appearance Urine pH (4.5-8.0) Ur Specific [place] (1.000-1.035) Urine Protein (Negative) Urine Glucose (UA) (Negative) g/dL Urine Ketones (NEGATIVE) Urine Occult Blood (Negative) Urine Nitrate (Negative) Urine Bilirubin (NEGATIVE) Urine Urobilinogen (0.2) E.U./dL Ur Leukocyte Esterase (NEGATIVE) Urine RBC (0-5/HPF) Urine WBC (0-5/HPF) Urine Bacteria (None) Ur Culture Indicated? Imaging Data CT scan - abdomen/pelvis: Radiologist's Impression: Read by overnight radiologist marked distention of the urinary bladder with severe bilateral hydroureter nephrosis. Mild enlarged prostate gland MDM Narrative Medical decision making narrative: Appropriate for discharge home. Laboratory and imaging results likely ongoing for the past year and a half. I did review with urologist and treatment plan in place. Return precautions reviewed the patient. Not toxic at discharge. Discharge Plan Departure Patient Disposition: Home Clinical Impression: Acute UTI, Urinary retention Instructions: How to Care for Your Phelps Catheter -- Male, DI for Urinary Tract Infection (UTI), DI for Urinary Retention in Men Activity Restrictions/Additional Instructions: Call Dr. Vann office today for left regarding your Phelps catheter and when to remove it according to his instructions as well as for repeat imaging of your kidneys. Keep well hydrated. Return if worsening questions or concerns. Prescriptions: New tamsulosin [Flomax] 0.4 mg capsule 0.4 mg PO BEDTIME Qty: 30 RF: 0 cephalexin 500 mg capsule 500 mg PO BID Qty: 14 RF: 0 No Action desonide 0.05 % lotion topical RF: 0 triamcinolone acetonide 0.1 % ointment topical RF: 0 Referrals: Dai Chavez ARNP [Primary Care Provider] - Timo Vann MD [Physician] -
[2021-06-25 00:33] LABS: Bacteria Urine Many (>30); RBC Urine >100/HPF (0-5/HPF); WBC Urine 30-100/HPF (0-5/HPF)
[2021-06-25 00:34] LABS: Culture Indicated Urine Specimen Cultured
[2021-06-25 00:53] VITALS: PULSE 65; O2SAT 97
[2021-06-25 00:54] VITALS: BP 166/75; PULSE 61; O2SAT 96
[2021-06-25 01:00] VITALS: BP 154/81; PULSE 65; O2SAT 93
[2021-06-25 01:05] LABS: Add Manual Diff / Slide Review NO; Basophils Absolute Auto 100 /uL (0-100); Basophils Percent Auto 1.1 % (0-2); Eosinophils Absolute Auto 300 /uL (0-450); Eosinophils Percent Auto 4.2 % (2-4); Hematocrit 34.9 % (41-53); Hemoglobin 11.7 g/dL (13.5-17.5); Lymphocytes Absolute Auto 2200 /uL (1100-4500); Lymphocytes Percent Auto 27.9 % (25-40); Mean Corpuscular HGB Conc 33.5 % (30-36); Mean Corpuscular Volume 95.4 fL (80-100); Monocytes Absolute Auto 700 /uL (0-900); Monocytes Percent Auto 8.4 % (3-14); Neutrophils Absolute Auto 4600 /uL (1500-7000); Neutrophils Percent Auto 58.4 % (50-75); Platelet Count 261 X10^3/uL (150-400); Red Blood Cell Count 3.66 X10^6/uL (4.5-5.9); Red Cell Distribution Width 13.9 % (11.6-14.8); White Blood Cell Count 7.9 X10^3/uL (4.5-11.0)
[2021-06-25 01:14] LABS: Alanine Aminotransferase 13 IU/L (<50); Albumin 4.4 g/dL (3.5-5.0); Albumin Globulin Ratio 1.3 (1.0-2.8); Alkaline Phosphatase 66 U/L (38-126); Aspartate Aminotransferase 29 IU/L (17-59); BUN Creatinine Ratio 24.7 (6-22); Bilirubin Total 0.4 mg/dL (0.2-1.3); Blood Urea Nitrogen 39 mg/dL (9-20); Calcium 8.9 mg/dL (8.4-10.2); Carbon Dioxide 25 mmol/L (22-32); Chloride 105 mmol/L (98-107); Estimated Glomerular Filt Rate 43.1 mL/min (>60); Globulin 3.4 g/dL (1.7-4.1); Glucose 106 mg/dL (80-110); HEMOLYSIS 16 (0-50); Potassium 4.3 mmol/L (3.4-5.1); Sodium 139 mmol/L (137-145); Total Protein 7.8 g/dL (6.3-8.2)
[2021-06-25] MEDS: cephALEXin 250 MG CAPSULE 500 MG PO (02:20)
[2021-06-25] MEDS: LIDOCAINE 2% (GLYDO) 6 ML GEL TOP (02:20)
[2021-06-25] MEDS: SODIUM CHLORIDE 0.9% 1,000 ML 1000 ML IV ×2 (03:29→06:29)
[2021-06-25] MEDS: TAMSULOSIN 0.4 MG CAPSULE PO (03:30)
[2021-06-25 04:34] LABS: BUN Creatinine Ratio 26.5 (6-22); Blood Urea Nitrogen 35 mg/dL (9-20); Calcium 8.3 mg/dL (8.4-10.2); Carbon Dioxide 23 mmol/L (22-32); Chloride 108 mmol/L (98-107); Glucose 110 mg/dL (80-110); HEMOLYSIS < 15 (0-50); Potassium 4.5 mmol/L (3.4-5.1); Sodium 137 mmol/L (137-145)
--- NOTE | 2021-06-25 07:55 | PC.NURSE ---
Given a leg bag and teaching for clean aeseptic technique of switching between leg bag and large bag of anaya. Given gloves, alcohol swabs, and caps. Called to come and pick him up.
[2021-06-25 07:56] VITALS: BP 136/87; PULSE 66; RESP 16; O2SAT 98
== END 2021-06-25 07:57 | disposition home or self-care (01) ==
PROVIDERS: Emergency Provider Emergency Medicine; Family Provider Nurse Practitioner; PCP Nurse Practitioner
DX: N39.0 Urinary tract infection, site not specified (principal); R33.9 Retention of urine, unspecified; R31.9 Hematuria, unspecified
CPT/HCPCS: 36415; 51798; 74176; 80048; 80053; 81001; 85025; 87077; 87086; 87147; 87186; 96360; 96361; 99284; 99285

== ENCOUNTER 2021-06-28 22:38 | Emergency (ER) | payer MEDICARE, BC, SELFPAY ==
[2021-06-28 22:41] VITALS: BP 176/96; PULSE 69; RESP 16; TEMP 37; O2SAT 98; BMI 24.4
[2021-06-28 22:52] LABS: Bacteria Urine None Seen
[2021-06-28 22:55] LABS: Appearance Urine UA CLOUDY; Bilirubin Urine UA NEGATIVE (NEGATIVE); Glucose Urine UA NEGATIVE (Negative); Leukocyte Esterase Urine UA TRACE (NEGATIVE); Nitrite Urine UA NEGATIVE (Negative); Occult Blood Urine UA 3+ (Negative); Protein Urine UA 3+ (Negative); Urobilinogen Urine UA 0.2 E.U./dL (0.2)
[2021-06-28 22:57] LABS: Color Urine UA RED
[2021-06-28 23:10] LABS: RBC Urine >100/HPF (0-5/HPF); WBC Urine 1-5/HPF (0-5/HPF)
[2021-06-28 23:11] LABS: Culture Indicated Urine Specimen Cultured
--- NOTE | 2021-06-29 01:07 | ED_ITS ---
HPI - Male Genitourinary General Chief complaint: Urogenital-Male Stated complaint: BLOOD IN URINE Time Seen by Provider: 06/29/21 00:51 Source: patient Mode of arrival: Ambulatory Limitations: no limitations History of Present Illness HPI Narrative: 75-year-old male who presents with hematuria and Phelps catheter is today. He was here and evaluated on 06/25/2021 for he was found have, severe hydronephrosis and UTI. He was started on Keflex. It appears culture grew staphylococci epidermidis. He has not had any fever or chills. He was worried today because he thought he had decreased urinary output in the Phelps catheter. He says he has had fatoumata blood coming out most of the time. However now it is clear yellow urine. He has no abdominal pain. He does have urinary spasms frequently which he says are quite painful. He has no flank pain. No fevers. He has an appointment with Urology in about 2 weeks. Related Data Home Medications Medication Instructions Recorded Confirmed desonide 0.05 % lotion TOPICAL 10/24/20 10/24/20 triamcinolone acetonide 0.1 % TOPICAL 10/24/20 10/24/20 topical ointment Previous Rx's Medication Instructions Recorded cephalexin 500 mg capsule 500 mg PO BID #14 cap 06/25/21 tamsulosin 0.4 mg capsule (Flomax) 0.4 mg PO BEDTIME #30 cap 06/25/21 belladonna alkaloids-opium 16.2 1 supp NC TID PRN #4 ea 06/29/21 mg-30 mg rectal suppository ciprofloxacin HCl 500 mg tablet 500 mg PO BID #14 tab 06/29/21 (Cipro) doxycycline hyclate 100 mg capsule 100 mg PO BID #14 cap 06/29/21 Allergies Allergy/AdvReac Type Severity Reaction Status Date / Time aspirin [ASPIRIN] Allergy Severe Hives Verified 06/28/21 22:41 Horse/Equine Containing Allergy Unknown Verified 06/28/21 22:41 Products [HORSE/EQUINE CONTAINING PRODUCTS] Review of Systems Review of Systems Narrative: GENERAL: Denies chills, fatigue, malaise, fever, sweats, travel HEENT: Denies sinus pain, ear pain, sore throat, difficulty swallowing, neck pain RESPIRATORY: Denies dyspnea, cough, wheezing, hemoptysis, sputum. CARDIOVASCULAR: Denies chest pain, palpitations, orthopnea, edema GASTROINTESTINAL: Denies nausea, vomiting, abdominal pain, diarrhea, constipation, melena. : See HPI MUSCULOSKELETAL: Denies weakness, joint pain, or bony pain SKIN: No rash, no erythema, no pruritus NEUROLOGIC: Denies weakness, dizziness, headache, numbness, change in speech, confusion PSYCHIATRIC: No concerning psychosocial issues. 12 point review of systems is negative except for those stated above and HPI Patient History Medical History (Updated 06/29/21 @ 02:49 by Luli Palm DO) Actinic keratosis (~2003) Allergies (~1989) Anxiety Bladder incontinence BPH (benign prostatic hyperplasia) (~1999) Edema of both ankles GERD (gastroesophageal reflux disease) (~2015) History of elevated PSA History of urinary incontinence (~2018) Hyperlipidemia LDL goal <100 Hypertension Irregular heartbeat Measles Plantar fasciitis (~2013) Plantar warts Tinnitus (~2009) Vision disorder Surgical History Anesthesia History of hernia surgery (~2003) Status post trigger finger release (~2017) Family History Father Cancer Mother Alzheimer's disease Sister Cancer Grandfather History of heart disease Grandmother Alzheimer's disease Social History Smoking Status: Former smoker Tobacco: How many years used: 30 quit status: quit date established alcohol intake: current (2 drinks per night ) substance use type: marijuana (one puff per night ) Smoking Status: Former smoker alcohol intake frequency: 0-2 drinks per day Substance Use Type: marijuana Exam Initial Vital Signs Initial Vital Signs: Vital Signs Temperature 98.6 F 06/28/21 22:41 Pulse Rate 69 06/28/21 22:41 Respiratory Rate 16 06/28/21 22:41 Blood Pressure 176/96 H 06/28/21 22:41 Pulse Oximetry 98 06/28/21 22:41 GENERAL: Pleasant well-appearing 75-year-old male and in no acute distress. HEENT: Head atraumatic,EOMI, pupils reactive, face symmetric PHARYNX: No erythema, no tonsillar exudate, no cervical lymphadenopathy CARDIOVASCULAR: Regular rate and rhythm without murmurs, rubs or gallops. RESPIRATORY: Breath sounds equal bilaterally, no wheezes rales or rhonchi. ABDOMEN: Soft, nontender. Normoactive bowel sounds all 4 quadrants. No guarding or rebound. : Phelps catheter in place. Urine is yellow and clear. No flank pain EXTREMITIES: Normal range of motion, no clubbing or edema. Neurovascularly intact NEUROLOGICAL: Alert and oriented x4.Normal gait and speech. SKIN: Warm, dry, no laceration, no petechiae, no rashes or lesions. Course Orders Ordered: ED Orders 06/28/21 22:44 Urinalysis and Microscopic Stat Urine Culture Stat 06/29/21 00:30 Complete Blood Count AUTO DIFF Stat Comprehensive Metabolic Panel Stat Vital Signs Vital signs: Vital Signs - 8 hr 06/28/21 22:41 06/29/21 03:06 Temperature 98.6 F 97.9 F Pulse Rate 69 60 Respiratory Rate 16 15 Blood Pressure 176/96 H 158/79 H Pulse Oximetry 98 98 MDM - Male Genitourinary Lab Data Result diagrams: 06/29/21 00:30 06/29/21 00:30 Labs: Lab Results 06/28/21 06/29/21 06/29/21 Range/Units 22:44 00:30 00:30 WBC 10.2 (4.5-11.0) X10^3/uL RBC 3.87 L (4.5-5.9) X10^6/uL Hgb 12.4 L (13.5-17.5) g/dL Hct 36.8 L (41-53) % MCV 94.9 (80-100) fL MCH 32.1 (26-34) PG MCHC 33.9 (30-36) % RDW 13.6 (11.6-14.8) % Plt Count 276 (150-400) X10^3/uL Neut % (Auto) 69.2 (50-75) % Lymph % (Auto) 18.4 L (25-40) % [place] % (Auto) 6.6 (3-14) % Eos % (Auto) 3.6 (2-4) % Baso % (Auto) 2.2 H (0-2) % Neut # (Auto) 7100 H (6567-1498) /uL Lymph # (Auto) 1900 (5162-4535) /uL [place] # (Auto) 700 (0-900) /uL Eos # (Auto) 400 (0-450) /uL Baso # (Auto) 200 H (0-100) /uL Sodium 135 L (137-145) mmol/L Potassium 4.1 (3.4-5.1) mmol/L Chloride 101 (98-107) mmol/L Carbon Dioxide 26 (22-32) mmol/L BUN 31 H (9-20) mg/dL Creatinine 1.33 H (0.66-1.25) mg/dL Estimated GFR 52.6 L (>60) mL/min BUN/Creatinine Ratio 23.3 H (6-22) Glucose 102 (80-110) mg/dL Calcium 9.1 (8.4-10.2) mg/dL Total Bilirubin 0.5 (0.2-1.3) mg/dL AST 30 (17-59) IU/L ALT 15 (<50) IU/L Alkaline Phosphatase 68 (38-126) U/L Total Protein 8.0 (6.3-8.2) g/dL Albumin 4.4 (3.5-5.0) g/dL Globulin 3.6 (1.7-4.1) g/dL Albumin/Globulin Ratio 1.2 (1.0-2.8) Urine Color Red Urine Appearance Cloudy Urine pH 6.0 (4.5-8.0) Ur Specific [place] 1.020 (1.000-1.035) Urine Protein 3+ H (Negative) Urine Glucose (UA) Negative (Negative) g/dL Urine Ketones Not Reportable Urine Occult Blood 3+ H (Negative) Urine Nitrate Negative (Negative) Urine Bilirubin Negative (NEGATIVE) Urine Urobilinogen 0.2 (0.2) E.U./dL Ur Leukocyte Esterase Trace H (NEGATIVE) Urine RBC >100/hpf H (0-5/HPF) Urine WBC 1-5/hpf (0-5/HPF) Urine Bacteria None seen (None) Ur Culture Indicated? Specimen cultured Micro UA Comment * MDM Narrative Medical decision making narrative: Patient's Phelps catheter is flushed very small clots returned. He has no fatoumata blood at this time. Urine culture and sensitivity he does not reflect sensitivity to Keflex which he is the antibiotic he is on. I initially wrote him for Cipro however he states he has tendonitis when he takes that and refuses to take it. Id doxycycline chest good sens itivity so I have written him that prescription. He is given B&O suppositories for urinary spasm. He has clear urine in no fatoumata blood in his catheter. He has actually 2 appointments with 2 different urologist. Previously from the last ED visit catheter needs to stay in for 2 weeks secondary to severe hydronephrosis. Patient is given strict return precautions both overall appears well and is g rateful his catheter is working Discharge Plan Departure Patient Disposition: Home Clinical Impression: Acute UTI, Phelps catheter present, Hematuria Instructions: DI for Urinary Tract Infection (UTI), DI for Hematuria Activity Restrictions/Additional Instructions: *You have been diagnosed with UTI, hematuria *What to do: At this time please keep Phelps catheter in place. I will switch appear antibiotic based on the culture. *Continue to take medications as directed Belladonna/opium suppositories once daily only if needed for spasm or severe pain--> [facility] 100 mg twice a day for 7 days STOP CEPHALEXIN *Follow up with your primary care provider in 2-3 days *Return to ER if you should have persistent blood in urine unable to see through catheter, fever, chills, catheter not draining any new, worsening or concerning symptoms Prescriptions: New belladonna alkaloids-opium 16.2-30 mg suppository 1 supp NC TID PRN (Reason: pain) Qty: 4 RF: 0 ciprofloxacin HCl [Cipro] 500 mg tablet 500 mg PO BID Qty: 14 RF: 0 doxycycline hyclate 100 mg capsule 100 mg PO BID Qty: 14 RF: 0 No Action desonide 0.05 % lotion topical RF: 0 triamcinolone acetonide 0.1 % ointment topical RF: 0 tamsulosin [Flomax] 0.4 mg capsule 0.4 mg PO BEDTIME Qty: 30 RF: 0 cephalexin 500 mg capsule 500 mg PO BID Qty: 14 RF: 0 Referrals: Dai Chavez ARNP [Primary Care Provider] - Stand Alone Forms: Against Medical Advice
[2021-06-29 01:17] LABS: Add Manual Diff / Slide Review NO; Basophils Absolute Auto 200 /uL (0-100); Basophils Percent Auto 2.2 % (0-2); Eosinophils Absolute Auto 400 /uL (0-450); Eosinophils Percent Auto 3.6 % (2-4); Hematocrit 36.8 % (41-53); Hemoglobin 12.4 g/dL (13.5-17.5); Lymphocytes Absolute Auto 1900 /uL (1100-4500); Lymphocytes Percent Auto 18.4 % (25-40); Mean Corpuscular HGB Conc 33.9 % (30-36); Mean Corpuscular Hemoglobin 32.1 PG (26-34); Mean Corpuscular Volume 94.9 fL (80-100); Monocytes Absolute Auto 700 /uL (0-900); Monocytes Percent Auto 6.6 % (3-14); Neutrophils Absolute Auto 7100 /uL (1500-7000); Neutrophils Percent Auto 69.2 % (50-75); Platelet Count 276 X10^3/uL (150-400); Red Blood Cell Count 3.87 X10^6/uL (4.5-5.9); Red Cell Distribution Width 13.6 % (11.6-14.8); White Blood Cell Count 10.2 X10^3/uL (4.5-11.0)
[2021-06-29 01:20] LABS: Alanine Aminotransferase 15 IU/L (<50); Albumin 4.4 g/dL (3.5-5.0); Albumin Globulin Ratio 1.2 (1.0-2.8); Alkaline Phosphatase 68 U/L (38-126); Aspartate Aminotransferase 30 IU/L (17-59); BUN Creatinine Ratio 23.3 (6-22); Bilirubin Total 0.5 mg/dL (0.2-1.3); Blood Urea Nitrogen 31 mg/dL (9-20); Calcium 9.1 mg/dL (8.4-10.2); Carbon Dioxide 26 mmol/L (22-32); Chloride 101 mmol/L (98-107); Estimated Glomerular Filt Rate 52.6 mL/min (>60); Globulin 3.6 g/dL (1.7-4.1); Glucose 102 mg/dL (80-110); HEMOLYSIS < 15 (0-50); Potassium 4.1 mmol/L (3.4-5.1); Sodium 135 mmol/L (137-145)
[2021-06-29 03:06] VITALS: BP 158/79; PULSE 60; RESP 15; TEMP 36.6; O2SAT 98
== END 2021-06-29 03:09 | disposition home or self-care (01) ==
PROVIDERS: Emergency Provider Emergency Medicine; Family Provider Nurse Practitioner; PCP Nurse Practitioner
DX: N39.0 Urinary tract infection, site not specified (principal); R31.9 Hematuria, unspecified; Z97.8 Presence of other specified devices
CPT/HCPCS: 51798; 80053; 81001; 85025; 87086; 99282; 99283

== ENCOUNTER → 2021-12-23 14:32 | Outpatient (CLI) | payer MEDICARE, BC, SELFPAY ==
[2021-12-25 16:09] LABS: Fecal Immunochemical Test Negative (Negative)
== END ==
PROVIDERS: Family Provider Nurse Practitioner; PCP Nurse Practitioner; Referring Provider Nurse Practitioner; Visit Provider Nurse Practitioner
DX: Z12.11 Encounter for screening for malignant neoplasm of colon (principal)
CPT/HCPCS: 82274

== ENCOUNTER → 2021-12-26 10:31 | Outpatient (CLI) | payer MEDICARE, BC, SELFPAY ==
[2021-12-26 12:21] LABS: Hematocrit 40.6 % (41-53); Hemoglobin 13.8 g/dL (13.5-17.5); Mean Corpuscular HGB Conc 33.9 % (30-36); Mean Corpuscular Hemoglobin 32.3 PG (26-34); Mean Corpuscular Volume 95.2 fL (80-100); Platelet Count 256 X10^3/uL (150-400); Red Blood Cell Count 4.27 X10^6/uL (4.5-5.9); Red Cell Distribution Width 13.8 % (11.6-14.8); White Blood Cell Count 8.1 X10^3/uL (4.5-11.0)
[2021-12-26 12:52] LABS: Alanine Aminotransferase 20 IU/L (<50); Albumin 4.5 g/dL (3.5-5.0); Albumin Globulin Ratio 1.3 (1.0-2.8); Alkaline Phosphatase 74 U/L (38-126); Aspartate Aminotransferase 33 IU/L (17-59); BUN Creatinine Ratio 20.9 (6-22); Bilirubin Total 0.7 mg/dL (0.2-1.3); Blood Urea Nitrogen 24 mg/dL (9-20); Calcium 9.4 mg/dL (8.4-10.2); Carbon Dioxide 26 mmol/L (22-32); Chloride 105 mmol/L (98-107); Estimated Glomerular Filt Rate > 60.0 mL/min (>60); Globulin 3.4 g/dL (1.7-4.1); Glucose 108 mg/dL (80-110); HEMOLYSIS < 15 (0-50); Potassium 4.4 mmol/L (3.4-5.1); Sodium 139 mmol/L (137-145); Total Protein 7.9 g/dL (6.3-8.2)
[2021-12-26 13:08] LABS: Free T3, Triiodothyronine Free 4.08 pg/mL (2.77-5.27); Free T4, Direct Thyroxine 1.09 ng/dL (0.78-2.19)
[2021-12-26 13:22] LABS: Thyroid Stimulating Hormone 3.16 uIU/mL (0.47-4.68)
[2021-12-28 19:34] LABS: Microalbumin Urine Random 4.3 mg/dL (0-1.6)
[2021-12-28 19:45] LABS: Creatinine Urine Random 98.5 mg/dL; Microalbumi Creatinin Ratio Ur 43.6 ug/mg CR (<30)
== END ==
PROVIDERS: Family Provider Nurse Practitioner; PCP Nurse Practitioner; Referring Provider Nurse Practitioner; Visit Provider Nurse Practitioner
DX: D64.9 Anemia, unspecified (principal); E87.1 Hypo-osmolality and hyponatremia; I10 Essential (primary) hypertension; N13.30 Unspecified hydronephrosis; N19 Unspecified kidney failure
CPT/HCPCS: 36415; 80053; 82043; 82570; 84439; 84443; 84481; 85027

== ENCOUNTER → 2022-04-20 13:57 | Outpatient (CLI) | payer MEDICARE, BC, SELFPAY ==
--- NOTE | 2022-04-20 | DI.RAD.S_ITS ---
PROCEDURE: XR EYE FOREIGN BODY LT INDICATIONS: FOR MRI - PT IN SUBWAIT TECHNIQUE: A single view of the orbits was acquired. COMPARISON: None. FINDINGS: Soft tissues: No metallic foreign bodies are visualized around the orbits. Bones: Bony structures appear unremarkable. Visualized sinuses appear clear. IMPRESSION: No metallic foreign bodies identified that would preclude MRI examination. Dictated by: Harriett Paz MD, PhD on 04/20/2022 at 16:49 Approved by: Harriett Paz MD, PhD on 04/20/2022 at 16:49
--- NOTE | 2022-04-20 13:58 | DI.MRI.S_ITS ---
PROCEDURE: MR CERVICAL SPINE WO CON INDICATIONS: Radiculopathy, cervical region TECHNIQUE: Noncontrast sagittal T1 spin echo and T2 fast spin echo, sagittal STIR, foraminal oblique sagittal T2 fast spin echo, and axial gradient echo or T2 fast spin echo through the cervical spine. COMPARISON: None. FINDINGS: Image quality: Excellent. Alignment and Curvature: 2 mm anterolisthesis of C4 on C5. Trace retrolisthesis of C5 on C6. Trace retrolisthesis of C6 on C7. 3 mm anterolisthesis of C7 on T1. Bone Marrow: Marrow demonstrates normal overall signal. Spinal Cord: Visualized spinal cord has normal size and signal. No cerebellar tonsillar herniation. Paraspinous Soft Tissues: No paravertebral masses. Prevertebral soft tissues are normal in thickness. C2-C3: No canal stenosis. Prominent bilateral facet hypertrophy. Moderate to severe right foraminal narrowing with a degree of right foraminal C3 nerve root impingement. Moderate left foraminal narrowing. C3-C4: Left posterior disc osteophyte complex without canal stenosis. Left uncovertebral joint hypertrophy. Prominent left facet hypertrophy. Moderate right foraminal narrowing. Severe left foraminal narrowing with left foraminal C4 nerve root impingement. C4-C5: Mild anterolisthesis of C4 on C5. No canal stenosis. Prominent bilateral facet hypertrophy. Right uncovertebral joint hypertrophy. Moderate to severe right foraminal narrowing with flattening deformity on the exiting right C5 nerve root. C5-C6: Trace retrolisthesis of C5 on C6. Posterior disc plus osteophyte complex. Posterior ligamentous hypertrophy. Mild canal stenosis. Bilateral uncovertebral joint hypertrophy and facet hypertrophy. Severe bilateral foraminal narrowing with bilateral foraminal C6 nerve root impingement. C6-C7: Trace retrolisthesis of C6 on C7. Posterior disc osteophyte complex. Mild canal stenosis. Bilateral uncovertebral joint hypertrophy and facet hypertrophy. Severe bilateral foraminal narrowing with bilateral foraminal C7 nerve root impingement. C7-T1: 3 mm anterolisthesis of C7 on T1. No canal stenosis. Bilateral facet hypertrophy. [id number] bilateral foraminal narrowing. IMPRESSION: 1. Severe generalized cervical spondylosis. 2. Findings include impressive multilevel facet arthropathy. 3. There is mild canal stenosis at C5-C6 and C6-C7. 4. There is multilevel significant foraminal narrowing as described above, including severe foraminal narrowing at multiple levels with foraminal nerve root impingement. Dictated by: Tc Gray M.D. on 04/20/2022 at 15:51 Approved by: Tc Gray M.D. on 04/20/2022 at 16:00
== END ==
PROVIDERS: Family Provider Nurse Practitioner; PCP Nurse Practitioner; Referring Provider Physical Medicine & Rehabilitation; Visit Provider Physical Medicine & Rehabilitation
DX: M54.12 Radiculopathy, cervical region (principal); M47.812 Spondylosis without myelopathy or radiculopathy, cervical region; M48.02 Spinal stenosis, cervical region
CPT/HCPCS: 70030; 72141

== ENCOUNTER → 2023-11-09 15:53 | Outpatient (CLI) | payer MEDICARE, BC, SELFPAY ==
[2023-11-09 17:58] LABS: Add Manual Diff / Slide Review NO; Basophils Absolute Auto 100 /uL (0-100); Basophils Percent Auto 0.9 % (0-2); Eosinophils Absolute Auto 200 /uL (0-450); Eosinophils Percent Auto 2.4 % (2-4); Hematocrit 39.1 % (41-53); Hemoglobin 13.4 g/dL (13.5-17.5); Lymphocytes Absolute Auto 1800 /uL (1100-4500); Lymphocytes Percent Auto 20.1 % (25-40); Mean Corpuscular HGB Conc 34.3 % (30-36); Mean Corpuscular Hemoglobin 32.8 PG (26-34); Mean Corpuscular Volume 95.4 fL (80-100); Monocytes Absolute Auto 500 /uL (0-900); Monocytes Percent Auto 5.9 % (3-14); Neutrophils Absolute Auto 6400 /uL (1500-7000); Neutrophils Percent Auto 70.7 % (50-75); Platelet Count 225 X10^3/uL (150-400); Red Blood Cell Count 4.09 X10^6/uL (4.5-5.9); Red Cell Distribution Width 13.9 % (11.6-14.8)
[2023-11-09 18:09] LABS: Alanine Aminotransferase 22 IU/L (<50); Albumin 4.3 g/dL (3.5-5.0); Albumin Globulin Ratio 1.3 (1.0-2.8); Alkaline Phosphatase 65 U/L (38-126); Aspartate Aminotransferase 35 IU/L (17-59); BUN Creatinine Ratio 22.8 (6-22); Bilirubin Total 0.8 mg/dL (0.2-1.3); Blood Urea Nitrogen 26 mg/dL (9-20); Calcium 9.3 mg/dL (8.4-10.2); Carbon Dioxide 25 mmol/L (22-32); Chloride 102 mmol/L (98-107); Estimated Glomerular Filt Rate > 60 mL/min (>60); Globulin 3.4 g/dL (1.7-4.1); Glucose 101 mg/dL (80-110); HEMOLYSIS 33 (0-50); Potassium 4.5 mmol/L (3.4-5.1); Sodium 137 mmol/L (137-145); Total Protein 7.7 g/dL (6.3-8.2)
[2023-11-09 18:40] LABS: Prostate Specific Antigen Scrn 7.18 ng/mL (0.1-4.0)
== END ==
PROVIDERS: Family Provider Nurse Practitioner; PCP Nurse Practitioner; Referring Provider Physician Assistant; Visit Provider Physician Assistant
DX: I10 Essential (primary) hypertension (principal); Z12.5 Encounter for screening for malignant neoplasm of prostate; N40.0 Benign prostatic hyperplasia without lower urinary tract symptoms; R59.0 Localized enlarged lymph nodes
CPT/HCPCS: 36415; 80053; 85025; G0103

== ENCOUNTER 2024-12-08 13:27 | Inpatient (IN) | payer MEDICARE, BC, SELFPAY ==
[2024-12-08] VITALS (13 sets, daily range): BP systolic 112–153; BP diastolic 48–69; PULSE 50–76; RESP 14–36; TEMP 36.6–37; O2SAT 84–100; BMI 24.7
--- NOTE | 2024-12-08 13:31 | EKG_ITS ---
[address] [address] Test Date: 2024-12-08 Pat Name: Felipe Dominique Department: [facility] Room: Gender: Male Sheet Tester: XENIA : 1945 Requested By: Order Number: [id number] Reading MD: Mann Oquendo MD Measurements Intervals [place] Rate: 51 P: 60 SC: 166 QRS: 22 QRSD: 108 T: 90 QT: 444 QTc: 409 Interpretive Statements Sinus bradycardia Nonspecific T wave abnormality Electronically Signed On 12-09-2024 12:58:33 PST by Mann Oquendo MD
[2024-12-08 13:47] LABS: Add Manual Diff / Slide Review NO; Basophils Absolute Auto 100 /uL (0-100); Basophils Percent Auto 0.5 % (0-2); Eosinophils Absolute Auto 100 /uL (0-450); Eosinophils Percent Auto 0.3 % (2-4); Hematocrit 43.5 % (41-53); Hemoglobin 14.7 g/dL (13.5-17.5); Lymphocytes Absolute Auto 1500 /uL (1100-4500); Lymphocytes Percent Auto 8.3 % (25-40); Mean Corpuscular HGB Conc 33.8 % (30-36); Mean Corpuscular Hemoglobin 32.7 PG (26-34); Mean Corpuscular Volume 96.7 fL (80-100); Monocytes Absolute Auto 1100 /uL (0-900); Neutrophils Absolute Auto 14800 /uL (1500-7000); Neutrophils Percent Auto 84.9 % (50-75); Platelet Count 256 X10^3/uL (150-400); Red Cell Distribution Width 13.7 % (11.6-14.8); White Blood Cell Count 17.5 X10^3/uL (4.5-11.0)
[2024-12-08 14:02] LABS: Alanine Aminotransferase 25 IU/L (<50); Albumin 4.7 g/dL (3.5-5.0); Albumin Globulin Ratio 1.3 (1.0-2.8); Alkaline Phosphatase 80 U/L (38-126); Aspartate Aminotransferase 35 IU/L (17-59); BUN Creatinine Ratio 17.8 (6-22); Bilirubin Total 1.2 mg/dL (0.2-1.3); Blood Urea Nitrogen 21 mg/dL (9-20); Calcium 9.3 mg/dL (8.4-10.2); Carbon Dioxide 25 mmol/L (22-32); Chloride 103 mmol/L (98-107); Estimated Glomerular Filt Rate > 60 mL/min (>60); Globulin 3.5 g/dL (1.7-4.1); Glucose 129 mg/dL (80-110); HEMOLYSIS < 15 (0-50); Lipase 85 U/L (23-300); Potassium 4.3 mmol/L (3.4-5.1); Sodium 137 mmol/L (137-145); Total Protein 8.2 g/dL (6.3-8.2)
--- NOTE | 2024-12-08 14:12 | DI.CT.S_ITS ---
PROCEDURE: CT ABDOMEN PELVIS W CON INDICATIONS: right lower quad pain TECHNIQUE: After the administration of intravenous contrast, axial sections acquired from the lung bases to the pubic symphysis. Coronal and sagittal reformats were performed. For radiation dose reduction, the following was used: automated exposure control, adjustment of mA and/or kV according to patient size. COMPARISON: [facility], CT, CT KIDNEY URETER BLADDER (KUB), 06/25/2021, 0:35. FINDINGS: Image quality: Diagnostic. Lower Chest: No significant findings. ABDOMEN: Liver: No solid mass. Gallbladder: No radiopaque gallstones or wall thickening. Biliary ducts: No biliary dilation. Pancreas: No ductal dilation. Spleen: Size is within normal limits. Adrenal Glands: No adrenal nodules. Kidneys and Ureters: No hydronephrosis. No solid mass. No complex renal cystic lesion which requires follow up. Bowel and peritoneum: Focal right lower quadrant inflammatory change can be seen. An abnormal appendix with appendicoliths can be seen on series 2, image 78. Adjacent gas and free fluid can be seen. No loculated abscess can be seen. A normal terminal ileum with hyperdense material within it can be seen on series 3, image 41, just superior to the apparent inflamed appendix. There is mild wall thickening seen involving the cecum. The more distal colon is within normal limits. No dilated loops of small bowel are seen. Ventral Wall: No significant ventral hernia. Abdominal Nodes: No retroperitoneal or mesenteric adenopathy by size criteria. Vessels: Aorta and inferior vena cava are normal in size. Atherosclerotic calcification is noted. PELVIS: Pelvic Organs: The prostate is enlarged, measuring 5.6 cm transversely. Bladder: Moderate generalized bladder wall thickening is seen. Pelvic Nodes: No enlarged lymph nodes. Miscellaneous: No inguinal hernias are seen. Prior bilateral groin hernia repair change can be seen. Bones: No aggressive osseous abnormality. Lumbar spine degenerative changes are seen. IMPRESSION: These imaging findings are suspicious for perforated appendicitis. Extensive right lower quadrant inflammatory change can be seen, with apparent free air and free fluid. No drainable abscess is seen at this time. Moderate generalized bladder wall thickening is seen. Bladder outlet obstruction is suspected in a male patient of this age. However, please correlate with potential UTI. Additional findings: Prior bilateral groin hernia repair change Lumbar spine degenerative change Note: Case discussed by telephone with Dr. Palm at 3:18 p.m. [place] time on December 08, 2024. Dictated by: Dank Schmid M.D. on 12/08/2024 at 13:57 Transcribed by: CATERINA on 12/08/2024 at 14:03 Approved by: Dank Schmid M.D. on 12/08/2024 at 14:19
--- NOTE | 2024-12-08 14:53 | ED.ABDPAIN ---
HPI - Abdominal Pain General Chief Complaint: Abdominal Pain Stated Complaint: RLQ Abd Pain Time Seen by Provider: 12/08/24 14:12 Source: patient and EMS Mode of arrival: EMS History of Present Illness HPI narrative: Patient is a 79-year-old healthy male presenting today with right lower quadrant pain. He reports that he was in his normal state of health had dinner last night but promptly woke up around 330 this morning with pretty severe pain. He tried to drink some Coca-Cola around 8 or 9 this morning but really felt nauseous. Pain has continued. It has not really moving radiating. No significant nausea vomiting or fever. He still has his appendix Related Data Home Medications Medication Instructions Recorded Confirmed No Known Home Medications 11/09/23 11/09/23 Allergies Allergy/AdvReac Type Severity Reaction Status Date / Time aspirin [ASPIRIN] Allergy Severe Hives Verified 11/09/23 15:39 Horse/Equine Containing Allergy Unknown Verified 11/09/23 15:39 Products [HORSE/EQUINE CONTAINING PRODUCTS] Patient History Medical History Hydronephrosis Anemia Bladder incontinence Vision disorder Plantar warts Actinic keratosis (~2003) Allergies (~1989) Plantar fasciitis (~2013) Measles Tinnitus (~2009) History of urinary incontinence (~2018) History of elevated PSA BPH (benign prostatic hyperplasia) (~1999) GERD (gastroesophageal reflux disease) (~2015) Hyperlipidemia LDL goal <100 Hypertension Anxiety Irregular heartbeat Edema of both ankles Surgical History Anesthesia Status post trigger finger release (~2017) History of hernia surgery (~2003) Family History Father Cancer Mother Alzheimer's disease Sister Cancer Grandfather History of heart disease Grandmother Alzheimer's disease Social History Smoking Status: Former smoker Tobacco: How many years used: 30 quit status: quit date established alcohol intake: current substance use type: marijuana Smoking Status: Former smoker alcohol intake frequency: 0-2 drinks per day Exam Initial Vital Signs Initial Vital Signs: Vital Signs Temperature 97.9 F 12/08/24 13:27 Pulse Rate 57 L 12/08/24 13:27 Respiratory Rate 16 12/08/24 13:27 Blood Pressure 148/65 H 12/08/24 13:27 Pulse Oximetry 99 12/08/24 13:27 Oxygen Delivery Method Room Air 12/08/24 13:27 GENERAL: Alert 71-year-old male appears uncomfortable HEENT: Head atraumatic,EOMI, pupils reactive, face symmetric, moist mucous membranes CARDIOVASCULAR: Regular rate and rhythm without murmurs, rubs or gallops. RESPIRATORY: Breath sounds equal bilaterally, no wheezes rales or rhonchi. ABDOMEN: Soft, tender right lower quadrant pain guarding with rebound EXTREMITIES: Normal range of motion, no clubbing or edema. Neurovascularly intact NEUROLOGICAL: Alert and oriented x4.Normal gait and speech. SKIN: Warm, dry, no laceration, no petechiae, no rashes or lesions. Course Orders Ordered: ED Orders 12/08/24 13:15 Complete Blood Count AUTO DIFF Stat Comprehensive Metabolic Panel Stat Lipase Stat 12/08/24 13:31 EKG-12 Lead Stat 12/08/24 14:12 CT abdomen pelvis w con Stat 12/08/24 14:30 Lactate (Lactic Acid) Stat 12/08/24 16:03 Blood Culture Stat Acetaminophen (Acetaminophen 325 Mg Tablet) 650 mg PO Q6H PRN PRN Reason: pain Hydrocodone Bitart/Acetaminophen (Hydrocodone/Acet 5/325 Tablet) 1 tab PO Q4H PRN PRN Reason: Pain, Moderate (4-6) Hydrocodone Bitart/Acetaminophen (Hydrocodone/Acet 5/325 Tablet) 2 tab PO Q4H PRN PRN Reason: Pain, Severe (7-10) Enoxaparin Sodium (Enoxaparin 40 Mg/0.4 Ml Syringe) 40 mg SUBCUT DAILY RADHA Hydromorphone HCl (Hydromorphone 0.5 Mg Inj) 0.5 mg IV Q2H PRN PRN Reason: Pain, Severe (7-10) Lactated Ringer's (Lactated Ringers) 1,000 mls @ 100 mls/hr IV CONT RADHA Piperacillin Sod/Tazobactam (Sod 3.375 gm/ Sodium Chloride) 100 mls @ 25 mls/hr IV Q8H RADHA Naloxone HCl (Naloxone 0.4 Mg/Ml Vial) 0.2 mg IV Q2MIN PRN PRN Reason: Opiate Reversal Ondansetron HCl (Ondansetron 4 Mg/2 Ml Inj) 4 mg IV NOW PRN PRN Reason: Nausea And Vomiting Last Admin: 12/08/24 15:49 Dose: 4 mg Documented By: LEONARDO Ondansetron HCl (Ondansetron 4 Mg Odt) 4 mg PO NOW PRN PRN Reason: Nausea And Vomiting Ondansetron HCl (Ondansetron 4 Mg/2 Ml Inj) 4 mg IV Q8HR PRN PRN Reason: Nausea And Vomiting Discontinued Medications Hydromorphone HCl (Hydromorphone 0.5 Mg Inj) 0.5 mg IV NOW ONE Stop: 12/08/24 15:38 Last Admin: 12/08/24 15:50 Dose: 0.5 mg Documented By: LEONARDO Piperacillin Sod/Tazobactam (Sod 4.5 gm/ Sodium Chloride) 100 mls @ 200 mls/hr IV NOW ONE Stop: 12/08/24 15:31 Last Infusion: 12/08/24 17:22 Dose: Infused Documented By: Admin: 12/08/24 15:57 Dose: 200 mls/hr Documented By: Morphine Sulfate (Morphine 2 Mg/Ml Inj) 2 mg IV NOW ONE Stop: 12/08/24 14:53 Last Admin: 12/08/24 15:01 Dose: 2 mg Documented By: LEONARDO Vital Signs Vital signs: Vital Signs - 8 hr 12/08/24 13:27 12/08/24 13:33 12/08/24 14:00 Temperature 97.9 F Pulse Rate 57 L 57 L 52 L Respiratory Rate 16 23 Blood Pressure 148/65 H Pulse Oximetry 99 99 96 Oxygen Delivery Method Room Air 12/08/24 14:00 12/08/24 14:53 12/08/24 14:55 Temperature Pulse Rate 67 Respiratory Rate Blood Pressure 130/63 152/68 H Pulse Oximetry 85 L Oxygen Delivery Method 12/08/24 14:55 12/08/24 15:00 12/08/24 15:00 Temperature Pulse Rate 58 L 53 L Respiratory Rate 14 16 Blood Pressure 140/68 Pulse Oximetry 100 99 Oxygen Delivery Method Room Air 12/08/24 15:30 12/08/24 15:30 12/08/24 16:00 Temperature Pulse Rate 50 L 76 Respiratory Rate 29 H 29 H Blood Pressure 131/59 L Pulse Oximetry 98 100 Oxygen Delivery Method 12/08/24 16:01 12/08/24 16:01 Temperature Pulse Rate 76 Respiratory Rate 32 H Blood Pressure 153/69 H Pulse Oximetry 100 Oxygen Delivery Method MDM - Abdominal Pain Lab Data 12/08/24 15:45 12/08/24 15:45 Labs: Lab Results 12/08/24 12/08/24 12/08/24 Range/Units 13:15 14:30 15:45 WBC 17.5 H 17.0 H (4.5-11.0) X10^3/uL RBC 4.50 4.17 L (4.5-5.9) X10^6/uL Hgb 14.7 13.7 (13.5-17.5) g/dL Hct 43.5 40.1 L (41-53) % MCV 96.7 96.2 (80-100) fL MCH 32.7 32.9 (26-34) PG MCHC 33.8 34.2 (30-36) % RDW 13.7 13.4 (11.6-14.8) % Plt Count 256 225 (150-400) X10^3/uL Neut % (Auto) 84.9 H 86.1 H (50-75) % Lymph % (Auto) 8.3 L 7.0 L (25-40) % [place] % (Auto) 6.0 6.5 (3-14) % Eos % (Auto) 0.3 L 0.1 L (2-4) % Baso % (Auto) 0.5 0.3 (0-2) % Neut # (Auto) 06951 H 69730 H (5281-2390) /uL Lymph # (Auto) 1500 1200 (0011-1962) /uL [place] # (Auto) 1100 H 1100 H (0-900) /uL Eos # (Auto) 100 0 (0-450) /uL Baso # (Auto) 100 100 (0-100) /uL Sodium 137 135 L (137-145) mmol/L Potassium 4.3 4.9 (3.4-5.1) mmol/L Chloride 103 103 (98-107) mmol/L Carbon Dioxide 25 23 (22-32) mmol/L BUN 21 H 21 H (9-20) mg/dL Creatinine 1.18 1.17 (0.66-1.25) mg/dL Estimated GFR > 60 > 60 (>60) mL/min BUN/Creatinine Ratio 17.8 17.9 (6-22) Glucose 129 H 110 (80-110) mg/dL Lactate 1.0 (0.7-2.1) mmol/L Calcium 9.3 9.2 (8.4-10.2) mg/dL Total Bilirubin 1.2 (0.2-1.3) mg/dL AST 35 (17-59) IU/L ALT 25 (<50) IU/L Alkaline Phosphatase 80 (38-126) U/L Total Protein 8.2 (6.3-8.2) g/dL Albumin 4.7 (3.5-5.0) g/dL Globulin 3.5 (1.7-4.1) g/dL Albumin/Globulin Ratio 1.3 (1.0-2.8) Lipase 85 (23-300) U/L Imaging Data CT scan - abdomen/pelvis: Radiologist's Impression: PROCEDURE: CT ABDOMEN PELVIS W CON INDICATIONS: right lower quad pain TECHNIQUE: After the administration of intravenous contrast, axial sections acquired from the lung bases to the pubic symphysis. Coronal and sagittal reformats were performed. For radiation dose reduction, the following was used: automated exposure control, adjustment of mA and/or kV according to patient size. COMPARISON: [facility], CT, CT KIDNEY URETER BLADDER (KUB), 06/25/2021, 0:35. FINDINGS: Image quality: Diagnostic. Lower Chest: No significant findings. ABDOMEN: Liver: No solid mass. Gallbladder: No radiopaque gallstones or wall thickening. Biliary ducts: No biliary dilation. Pancreas: No ductal dilation. Spleen: Size is within normal limits. Adrenal Glands: No adrenal nodules. Kidneys and Ureters: No hydronephrosis. No solid mass. No complex renal cystic lesion which requires follow up. Bowel and peritoneum: Focal right lower quadrant inflammatory change can be seen. An abnormal appendix with appendicoliths can be seen on series 2, image 78. Adjacent gas and free fluid can be seen. No loculated abscess can be seen. A normal terminal ileum with hyperdense material within it can be seen on series 3, image 41, just superior to the apparent inflamed appendix. There is mild wall thickening seen involving the cecum. The more distal colon is within normal limits. No dilated loops of small bowel are seen. Ventral Wall: No significant ventral hernia. Abdominal Nodes: No retroperitoneal or mesenteric adenopathy by size criteria. Vessels: Aorta and inferior vena cava are normal in size. Atherosclerotic calcification is noted. PELVIS: Pelvic Organs: The prostate is enlarged, measuring 5.6 cm transversely. Bladder: Moderate generalized bladder wall thickening is seen. Pelvic Nodes: No enlarged lymph nodes. Miscellaneous: No inguinal hernias are seen. Prior bilateral groin hernia repair change can be seen. Bones: No aggressive osseous abnormality. Lumbar spine degenerative changes are seen. IMPRESSION: These imaging findings are suspicious for perforated appendicitis. Extensive right lower quadrant inflammatory change can be seen, with apparent free air and free fluid. No drainable abscess is seen at this time. Moderate generalized bladder wall thickening is seen. Bladder outlet obstruction is suspected in a male patient of this age. However, please correlate with potential UTI. Additional findings: Prior bilateral groin hernia repair change Lumbar spine degenerative change Note: Case discussed by telephone with Dr. Palm at 3:18 p.m. [place] time on December 08, 2024. Dictated by: Dank Schmid M.D. on 12/08/2024 at 13:57 ECG Data Attestation: I personally reviewed and interpreted this ECG as follows: Interpretation: Normal sinus rhythm rate 51 HI interval 166 QRS and no [address] changes no T-wave inversions improved from previous MDM Narrative Medical decision making narrative: Patient is a 79-year-old healthy male presenting today with sudden onset right lower quadrant pain. He was found to have a significant leukocytosis of 17.5. Lactate of 1.0. Blood cultures were drawn and pending Other blood work CMP does not show any clinical significant abnormality creatinine stable 1.18 CT does confirm perforated appendicitis. Patient was given Zosyn and morphine. He reports morphine started wear off relatively quickly. Given a dose of Dilaudid which does seem to help. Dr. Laurent, surgery updated patient's symptoms test results in ED to see and evaluate patient. Happy to admit patient. Conservative management only Discharge Plan Departure Patient Disposition: Admitted As Inpatient Clinical Impression: Acute appendicitis with perforation and localized peritonitis Admit Date/Time: 12/08/24 16:15 Admit Provider: Finesse Laurent
[2024-12-08] MEDS: MORPHINE 2 MG/ML INJ IV (15:01)
[2024-12-08] MEDS: ONDANSETRON 4 MG/2 ML INJ IV (15:49)
[2024-12-08] MEDS: HYDROMORPHONE 0.5 MG INJ IV (15:50)
[2024-12-08] MEDS: PIPERACILLIN/TAZO 4.5 GM in SODIUM CHLORIDE 0.9% 100 ML IV (15:57)
--- NOTE | 2024-12-08 16:20 | PM.HP.IH.1 ---
History of Present Illness History of Present Illness Date Patient Seen: 12/08/24 Time Patient Seen: 16:20 Date of Onset of Symptoms: 12/08/24 Chief complaint: RLQ Abd Pain Narrative: Patient awoke from sleep at 3:00 a.m. with right lower quadrant pain. He does not relate this to any abnormal meal. He has had anorexia since. Some nausea no vomiting, normal bowel movement. Patient reports significant right lower quadrant, testicular, and low back pain on the right side., some fevers no chills [facility] Medical History Hydronephrosis Anemia Bladder incontinence Vision disorder Plantar warts Actinic keratosis (~2003) Allergies (~1989) Plantar fasciitis (~2013) Measles Tinnitus (~2009) History of urinary incontinence (~2018) History of elevated PSA BPH (benign prostatic hyperplasia) (~1999) GERD (gastroesophageal reflux disease) (~2015) Hyperlipidemia LDL goal <100 Hypertension Anxiety Irregular heartbeat Edema of both ankles Surgical History Anesthesia Status post trigger finger release (~2017) History of hernia surgery (~2003) Family History Father Cancer Mother Alzheimer's disease Sister Cancer Grandfather History of heart disease Grandmother Alzheimer's disease Social History Smoking Status: Former smoker Tobacco: How many years used: 30 quit status: quit date established alcohol intake: current substance use type: marijuana Meds Home Medications and Allergies Home Medications Medication Instructions Recorded Confirmed Type No Known Home Medications 11/09/23 11/09/23 History Allergies Allergy/AdvReac Type Severity Reaction Status Date / Time aspirin [ASPIRIN] Allergy Severe Hives Verified 11/09/23 15:39 Horse/Equine Containing Allergy Unknown Verified 11/09/23 15:39 Products [HORSE/EQUINE CONTAINING PRODUCTS] Review of Systems Review of Systems ROS: Yes All systems reviewed with the patient and are negative except as otherwise documented Constitutional Constitutional: Reports anorexia, Reports body ache(s) and Denies chills Cardiovascular Cardiovascular: Reports system reviewed and no additional complaints, except as documented Respiratory Respiratory: Reports as per HPI and Reports system reviewed and no additional complaints, except as documented Gastrointestinal Gastrointestinal: Reports abdominal pain (Right lower quadrant), Denies hematochezia, Denies change in bowel habits, Denies change in stool character and Denies coffee ground emesis Genitourinary Genitourinary: Reports system reviewed and no additional complaints, except as documented Comments: History of multiple groin hernias, umbilical hernia, TURP, bladder sling Exam Vital Signs (past 8 hours): - 12/08/24 13:27 12/08/24 13:33 12/08/24 14:00 Temperature 97.9 F Pulse Rate 57 L 57 L 52 L Respiratory Rate 16 23 Blood Pressure 148/65 H Pulse Oximetry 99 99 96 Oxygen Delivery Method Room Air 12/08/24 14:00 Temperature Pulse Rate Respiratory Rate Blood Pressure 130/63 Pulse Oximetry Oxygen Delivery Method Oxygen Delivery Method Room Air Const General: cooperative, healthy appearing, comfortable, well developed and No acute distress Nutritional Appearance: well nourished [facility] Head: normal to inspection Ears: hearing grossly normal bilaterally Nose: external nose normal Face and sinus: normal facial exam Mouth: oral mucosae normal Eyes General: appearance normal, both eyes and all related structures Neck Neck: normal visual inspection Chest Chest: normal inspection of the chest Resp Effort & Inspection: normal respiratory effort and able to speak in complete sentences Cardio Palpation: normal PMI Rate: regular rate Rhythm: regular rhythm GI Inspection: normal to inspection Palpation: No hernia, No mass and No tender (Right lower quadrant, left lower quadrant okay, otherwise abdomen soft and ) Objective Imaging CT scan - abdomen: My impression: Perforated appendicitis, with fecaliths and air external to mucosa Radiologist's impression: IMPRESSION: These imaging findings are suspicious for perforated appendicitis. Extensive right lower quadrant inflammatory change can be seen, with apparent free air and free fluid. No drainable abscess is seen at this time. Moderate generalized bladder wall thickening is seen. Bladder outlet obstruction is suspected in a male patient of this age. However, please correlate with potential UTI. Labs 12/08/24 13:15 12/08/24 13:15 Labs: Laboratory Results - last 24 hr 12/08/24 12/08/24 13:15 14:30 WBC 17.5 H RBC 4.50 Hgb 14.7 Hct 43.5 MCV 96.7 MCH 32.7 MCHC 33.8 RDW 13.7 Plt Count 256 Neut % (Auto) 84.9 H Lymph % (Auto) 8.3 L [place] % (Auto) 6.0 Eos % (Auto) 0.3 L Baso % (Auto) 0.5 Neut # (Auto) 83343 H Lymph # (Auto) 1500 [place] # (Auto) 1100 H Eos # (Auto) 100 Baso # (Auto) 100 Sodium 137 Potassium 4.3 Chloride 103 Carbon Dioxide 25 BUN 21 H Creatinine 1.18 Estimated GFR > 60 BUN/Creatinine Ratio 17.8 Glucose 129 H Lactate 1.0 Calcium 9.3 Total Bilirubin 1.2 AST 35 ALT 25 Alkaline Phosphatase 80 Total Protein 8.2 Albumin 4.7 Globulin 3.5 Albumin/Globulin Ratio 1.3 Lipase 85 Assessment & Plan Assessment and plan (1) Acute appendicitis with perforation and localized peritonitis: Status: Acute Assessment & Plan narrative: Perforated appendicitis, history of multiple abdominal surgeries -not an ideal surgical candidate given perforation -we will trial nonoperative management with IV antibiotics, NPO with ice chips for comfort, serial abdominal exams -I discussed with the patient natural history of the disease, our goal is to control the disease, I would wall off and get to a delayed appendectomy. This may lead to an abscess needing drainage, or other -patient knows that if he gets worse he may need a larger operation in an ileocecectomy -we will continue Zosyn -ice chips for comfort -daily labs and abdominal exams -activity ad travon Time-Based Coding :: [TOTAL MINUTES] spent with patient and on the chart (including review of chart, obtaining history, exam, reviewing outside data, placing orders, documenting exam and treatment plan, and counseling patient) on [DATE]. PROFEE Physical Fitness Teacher Document charge(s): Yes
[2024-12-08] MEDS: ONDANSETRON 4 MG ODT PO (17:46)
[2024-12-09] VITALS (9 sets, daily range): BP systolic 107–146; BP diastolic 51–76; PULSE 61–80; RESP 12–20; TEMP 36.7–37.9; O2SAT 93–98
[2024-12-09] MEDS: ONDANSETRON 4 MG/2 ML INJ IV ×3 (08:55→13:02)
--- NOTE | 2024-12-09 10:05 | PM.PN.IH.1 ---
Subjective Subjective Date Patient Seen: 12/09/24 Time Patient Seen: 10:05 Interval history: No significant events overnight, patient did arrive on the floor, he continues with IV antibiotics. He has been ambulatory and urinating normally. He did report some nausea this morning no vomiting. He reports not feeling worse but not feeling significantly better. Exam Vital Signs (past 8 hours): - 12/09/24 03:36 12/09/24 08:00 12/09/24 08:00 Temperature 98.4 F 98.0 F Pulse Rate 61 62 Respiratory Rate 16 20 Blood Pressure 107/54 L 119/51 L Pulse Oximetry 95 95 95 Oxygen Delivery Method Room Air Oxygen Flow Rate 0 0 Oxygen Delivery Method Room Air Oxygen Flow Rate 0 Narrative Exam Narrative: Alert and oriented x3, in good spirits. Normal chest rise, regular rate and rhythm no tachycardia. Abdomen continues to be soft, with significant tenderness in the right lower quadrant. Some tenderness to percussion as well. No generalized peritonitis, no rigid abdomen, some guarding with right lower quadrant palpation. Patient is on narcotic medication during exam Const General: cooperative, healthy appearing and comfortable Orientation: alert, awake and oriented x3 Objective Labs 12/08/24 15:45 12/08/24 15:45 Labs: Laboratory Results - last 24 hr 12/08/24 12/08/24 12/08/24 13:15 14:30 15:45 WBC 17.5 H 17.0 H RBC 4.50 4.17 L Hgb 14.7 13.7 Hct 43.5 40.1 L MCV 96.7 96.2 MCH 32.7 32.9 MCHC 33.8 34.2 RDW 13.7 13.4 Plt Count 256 225 Neut % (Auto) 84.9 H 86.1 H Lymph % (Auto) 8.3 L 7.0 L [place] % (Auto) 6.0 6.5 Eos % (Auto) 0.3 L 0.1 L Baso % (Auto) 0.5 0.3 Neut # (Auto) 04477 H 51902 H Lymph # (Auto) 1500 1200 [place] # (Auto) 1100 H 1100 H Eos # (Auto) 100 0 Baso # (Auto) 100 100 Sodium 137 135 L Potassium 4.3 4.9 Chloride 103 103 Carbon Dioxide 25 23 BUN 21 H 21 H Creatinine 1.18 1.17 Estimated GFR > 60 > 60 BUN/Creatinine Ratio 17.8 17.9 Glucose 129 H 110 Lactate 1.0 Calcium 9.3 9.2 Total Bilirubin 1.2 AST 35 ALT 25 Alkaline Phosphatase 80 Total Protein 8.2 Albumin 4.7 Globulin 3.5 Albumin/Globulin Ratio 1.3 Lipase 85 [facility] Medical History Hydronephrosis Anemia Bladder incontinence Vision disorder Plantar warts Actinic keratosis (~2003) Allergies (~1989) Plantar fasciitis (~2013) Measles Tinnitus (~2009) History of urinary incontinence (~2018) History of elevated PSA BPH (benign prostatic hyperplasia) (~1999) GERD (gastroesophageal reflux disease) (~2015) Hyperlipidemia LDL goal <100 Hypertension Anxiety Irregular heartbeat Edema of both ankles Surgical History Anesthesia Status post trigger finger release (~2017) History of hernia surgery (~2003) Family History Father Cancer Mother Alzheimer's disease Sister Cancer Grandfather History of heart disease Grandmother Alzheimer's disease Social History household members: spouse Smoking Status: Former smoker Tobacco: How many years used: 30 quit status: quit date established alcohol intake: current substance use type: marijuana Assessment & Plan Assessment and plan (1) Acute appendicitis with perforation and localized peritonitis: Qualifiers: Appendicitis gangrene presence: unspecified whether gangrene present Appendicitis abscess presence: without abscess Qualified Code(s): K35.32 - Acute appendicitis with perforation, localized peritonitis, and gangrene, without abscess Status: Acute Plan Patient admitted for trial of nonoperative management of perforated appendicitis with air and fecalith outside of the appendiceal wall on scan. Patient has a history of multiple abdominal surgeries including a TURP, a bladder sling for incontinence, and hernia repairs of the umbilicus and bilateral groins with mesh. Patient has localized peritonitis in the right lower quadrant, no abscess on CT. He has been getting ongoing IV antibiotics and has been on ice chips, and his overall this morning the same if not slightly better subjectively, with the same abdominal exam. No worsening peritonitis. No indication for urgent operative intervention right now, we will stay the course with IV antibiotics. We will allow the patient to have a clear liquid diet for his comfort, I have encouraged ambulation, he needs DVT prophylaxis and SCDs as well as his much ambulation as he can tolerate. Patient is on oral pain medication. Once we have several more data points of the patient is getting better or stable we will transition to oral antibiotics. We will continue to follow Time-Based Coding :: Thirty spent with patient and on the chart (including review of chart, obtaining history, exam, reviewing outside data, placing orders, documenting exam and treatment plan, and counseling patient) on today. PROFEE Mud Analysis Operator Document charge(s): Yes
--- NOTE | 2024-12-09 15:43 | CM.DANOTE ---
Patient is a 79 yo male who was admitted INPT Status on 12/08/24 for Acute Appendicitis. Pt has MCR and BCBS OUT [employer] for insurance and his PCP was Dai Chavez, needs to be confirmed current PCP. EMR was reviewed. Per Surgeon, pt with hx of multiple abdominal surgeries and admitted for appendicitis with perf and pt not a good surgical candidate as high risk for open complex surgery and therefore attempting to treat conservatively with IV-Abx and NPO but switched to clear liquids. Pt making slow progress and able to ambulate and tolerate clears and will continue with IV abx at this time. Pt has supportive Sig Other bedside. Pt lives at home in [place] with Sig Other and is independent at baseline and no recent hospital admissions. No bedside assessment completed at this time due to triage needs. Plan: SW to follow closely in the AM with pt's progress and to confirm safe plan of home when medically stable and any further identified discharge planning needs. LAWANDA Guerrier Discharge Planning/Care Management CM Discharge Assessment Start: 12/09/24 15:42 Freq: Status: Active Protocol: Document 12/09/24 15:42 BF (Rec: 12/09/24 15:43 BF [id number]) Discharge Planning Assessment Assigned Welding Machine Operator Thermit LAWANDA Doshi Advance Directives? Yes Advance Directives on File Yes History Provided By Patient,Medical Record Has Patient been admitted in last 30 No days? Prior Living Arrangements House Household Members spouse Type of transporation used prior to Drives own vehicle admit Independent with ADL's Yes Is patient alert and oriented? Yes Caregiver for Another No Barriers to Discharge No Discharge Plan Home Transportation Arrangement Sig Other can transport at d/c Referrals Initiated None needed Additional Comment Pending progress with conservative tx vs surgery Review Status In Process Please Provide Date Initial DC 12/09/24 Assessment Was Performed Next Review Type Continued Stay Review
--- NOTE | 2024-12-09 18:56 | P.PN_ITS ---
Subjective Subjective Date Patient Seen: 12/09/24 Time Patient Seen: 18:57 Interval history: pt pain same, nausea better controlled with compazaine morphine. long phone and now in person conversation with patient and his abotu his care plan. non op trial with contained perforation, IV abx transition to oral and home, with [facility] plan. this is because I assessed the risk of open surgery to be higher than non op in his case, with cecal inflammation and contained perf and normal physiology, and multiple prior surgeries. she understand plan. Exam Vital Signs (past 8 hours): - 12/09/24 11:59 12/09/24 12:00 12/09/24 13:59 Temperature 98.8 F Pulse Rate 61 80 Respiratory Rate 16 Blood Pressure 131/61 131/72 Pulse Oximetry 96 96 Oxygen Delivery Method Room Air Oxygen Flow Rate 0 12/09/24 16:00 12/09/24 16:00 Temperature 98.2 F Pulse Rate 77 Respiratory Rate 18 Blood Pressure 136/76 Pulse Oximetry 96 97 Oxygen Delivery Method Room Air Oxygen Flow Rate 0 Oxygen Delivery Method Room Air Oxygen Flow Rate 0 Narrative Exam Narrative: RLQ tender to deep palpation, slightly less. less tender to percussion. otherwise abdomen exam benign. Const General: cooperative and healthy appearing Objective Labs 12/09/24 12:08 12/09/24 12:08 Labs: Laboratory Results - last 24 hr 12/09/24 12:08 WBC 19.5 H RBC 3.92 L Hgb 12.9 L Hct 38.3 L MCV 97.7 MCH 32.9 MCHC 33.7 RDW 13.6 Plt Count 187 Sodium 136 L Potassium 4.1 Chloride 106 Carbon Dioxide 20 L BUN 24 H Creatinine 1.24 Estimated GFR 60 BUN/Creatinine Ratio 19.4 Glucose 133 H Calcium 8.5 PFSH Medical History Hydronephrosis Anemia Bladder incontinence Vision disorder Plantar warts Actinic keratosis (~2003) Allergies (~1989) Plantar fasciitis (~2013) Measles Tinnitus (~2009) History of urinary incontinence (~2018) History of elevated PSA BPH (benign prostatic hyperplasia) (~1999) GERD (gastroesophageal reflux disease) (~2015) Hyperlipidemia LDL goal <100 Hypertension Anxiety Irregular heartbeat Edema of both ankles Surgical History Anesthesia Status post trigger finger release (~2018) History of hernia surgery (~2004) Family History Father Cancer Mother Alzheimer's disease Sister Cancer Grandfather History of heart disease Grandmother Alzheimer's disease Social History household members: spouse Smoking Status: Former smoker Tobacco: How many years used: 30 quit status: quit date established alcohol intake: current substance use type: marijuana Assessment & Plan Assessment and plan (1) Acute appendicitis with perforation and localized peritonitis: Qualifiers: Appendicitis abscess presence: without abscess Appendicitis gangrene presence: unspecified whether gangrene present Qualified Code(s): K35.32 - Acute appendicitis with perforation, localized peritonitis, and gangrene, without abscess Status: Acute Plan continue trial of non op mgmt. no need to transfer ( had requested this earlier) and will sign out to Dr Sotelo in the am. Time-Based Coding :: [TOTAL MINUTES] spent with patient and on the chart (including review of chart, obtaining history, exam, reviewing outside data, placing orders, documenting exam and treatment plan, and counseling patient) on [DATE]. PROFEE Inside Upholsterer Document charge(s): Yes
[2024-12-10] VITALS (20 sets, daily range): BP systolic 90–148; BP diastolic 49–72; PULSE 42–93; RESP 8–24; TEMP 36.1–37.4; O2SAT 88–98; BMI 24.5
--- NOTE | 2024-12-10 | PATH_ITS ---
[facility] Accession Number: [id number] No. of containers..01 Tissue . 01 Material submitted: . appendix - APPENDIX . 01 Diagnosis: APPENDIX, APPENDECTOMY: Acute suppurative appendicitis with rupture. Negative for dysplasia and malignancy. MRV 12/12/2024 1415 Local . 01 Electronically signed: . Danii Chávez MD, Pathologist NPI- [id number] . 01 Gross description: . Received in formalin labeled with two patient identifiers and designated appendix, and consists of an 11.5 x 1.3 x 1.1 cm curled appendix with a 1.5 x 1.0 x 0.8 cm attached mesoappendix. The serosal surface has a marked amount of diffuse yellow to green laminated exudate. The proximal resection margin is stapled and is further inked blue. There is a 0.6 cm in greatest dimension transmural perforation at the distal aspect of the specimen. This area is further inked orange. The specimen is serially sectioned to show a markedly dilated and focally ruptured appendiceal tip. The appendiceal wall ranges from 0.1 to 0.3 cm in thickness. The lumen ranges from 0.3 to 0.9 cm in diameter and is partially filled with a yellow to green exudative material. Spinner [employer] Pipe sections are submitted as follows: A1: Dilated and perforated tip of appendix (bisected) and proximal blue-inked resection margin. A2: Williamson-inked area of perforated appendix and additional service liaison representative complete cross-section of appendix. ([id number]) /LOUISA 12/11/2024 0935 Local . 01 Pathologist provided ICD-10: K35.80 . 01 CPT . 024827 Specimen Comment: A courtesy copy of this report has been sent to [phone] Performed at: [address] [facility] [address] [address] [address] [facility], [place], [place] [id number] MD Vinny Hihg MD Phone: [phone]
[2024-12-10 08:41] LABS: Add Manual Diff / Slide Review NO; Basophils Absolute Auto 100 /uL (0-100); Basophils Percent Auto 0.4 % (0-2); Eosinophils Absolute Auto 0 /uL (0-450); Hematocrit 37.6 % (41-53); Hemoglobin 12.7 g/dL (13.5-17.5); Lymphocytes Absolute Auto 700 /uL (1100-4500); Lymphocytes Percent Auto 3.7 % (25-40); Mean Corpuscular HGB Conc 33.9 % (30-36); Mean Corpuscular Hemoglobin 33.1 PG (26-34); Mean Corpuscular Volume 97.6 fL (80-100); Monocytes Absolute Auto 1100 /uL (0-900); Monocytes Percent Auto 5.7 % (3-14); Neutrophils Absolute Auto 17200 /uL (1500-7000); Neutrophils Percent Auto 90.2 % (50-75); Platelet Count 173 X10^3/uL (150-400); Red Blood Cell Count 3.85 X10^6/uL (4.5-5.9); Red Cell Distribution Width 13.4 % (11.6-14.8); White Blood Cell Count 19.1 X10^3/uL (4.5-11.0)
[2024-12-10 08:53] LABS: BUN Creatinine Ratio 17.1 (6-22); Blood Urea Nitrogen 20 mg/dL (9-20); Carbon Dioxide 21 mmol/L (22-32); Chloride 105 mmol/L (98-107); Estimated Glomerular Filt Rate > 60 mL/min (>60); Glucose 150 mg/dL (80-110); HEMOLYSIS < 15 (0-50); Potassium 3.9 mmol/L (3.4-5.1); Sodium 135 mmol/L (137-145)
--- NOTE | 2024-12-10 12:19 | CM.DPNOTE ---
DCP note PAPER HANDLER reviewed EMR Per chart review, complex PMH of abdominal surgeries, unsure if going to do surgery at this time. PAPER HANDLER attempted to meet with pt and spouse in room. RN in room, report that he is being taken down for surgery right now. Plan: SW to follow closely in the AM with pt's progress and to confirm safe plan of home when medically stable and any further identified discharge planning needs. Will f/u on who pt's new PCP is. LAWANDA Dover
[2024-12-10] MEDS: ONDANSETRON 4 MG/2 ML INJ IV (12:50)
[2024-12-10] MEDS: HYDROMORPHONE 1 MG INJ IV (12:54)
--- NOTE | 2024-12-10 13:30 | P.PN_ITS ---
Subjective Subjective Date Patient Seen: 12/10/24 Time Patient Seen: 13:30 Interval history: Felipe had a significant increase in his level of abdominal pain today. His pain is now much higher than it was at any point since he was admitted. Exam Vital Signs (past 8 hours): - 12/10/24 07:42 12/10/24 08:00 12/10/24 11:00 Temperature 98.8 F 99.3 F Pulse Rate 87 88 Respiratory Rate 18 24 Blood Pressure 144/57 H 121/72 Pulse Oximetry 93 98 88 L Oxygen Delivery Method Room Air Oxygen Flow Rate 0 0 Oxygen Delivery Method Room Air Oxygen Flow Rate 0 Narrative Exam Narrative: There is tenderness to light percussion in the lower abdomen Objective Labs 12/10/24 08:32 12/10/24 08:32 Labs: Laboratory Results - last 24 hr 12/10/24 08:32 WBC 19.1 H RBC 3.85 L Hgb 12.7 L Hct 37.6 L MCV 97.6 MCH 33.1 MCHC 33.9 RDW 13.4 Plt Count 173 Neut % (Auto) 90.2 H Lymph % (Auto) 3.7 L [place] % (Auto) 5.7 Eos % (Auto) 0.0 L Baso % (Auto) 0.4 Neut # (Auto) 31099 H Lymph # (Auto) 700 L [place] # (Auto) 1100 H Eos # (Auto) 0 Baso # (Auto) 100 Sodium 135 L Potassium 3.9 Chloride 105 Carbon Dioxide 21 L BUN 20 Creatinine 1.17 Estimated GFR > 60 BUN/Creatinine Ratio 17.1 Glucose 150 H Calcium 8.0 L PFSH Medical History Hydronephrosis Anemia Bladder incontinence Vision disorder Plantar warts Actinic keratosis (~2003) Allergies (~1989) Plantar fasciitis (~2013) Measles Tinnitus (~2009) History of urinary incontinence (~2018) History of elevated PSA BPH (benign prostatic hyperplasia) (~1999) GERD (gastroesophageal reflux disease) (~2015) Hyperlipidemia LDL goal <100 Hypertension Anxiety Irregular heartbeat Edema of both ankles Surgical History Anesthesia Status post trigger finger release (~2017) History of hernia surgery (~2003) Family History Father Cancer Mother Alzheimer's disease Sister Cancer Grandfather History of heart disease Grandmother Alzheimer's disease Social History household members: spouse Smoking Status: Former smoker Tobacco: How many years used: 30 quit status: quit date established alcohol intake: current substance use type: marijuana Assessment & Plan Assessment and plan (1) Acute appendicitis with perforation and localized peritonitis: Qualifiers: Appendicitis abscess presence: without abscess Appendicitis gangrene presence: unspecified whether gangrene present Qualified Code(s): K35.32 - Acute appendicitis with perforation, localized peritonitis, and gangrene, without abscess Status: Acute Plan Sudden increase in abdominal pain and peritoneal findings on exam Recommend we proceed to the OR today We will attempt a laparoscopic appendectomy however I explained that there is a high chance we might have to convert to an exploratory laparotomy. It was possible that we will need to perform more extensive surgery such as an ileocecectomy or right hemicolectomy depending on the findings at the time of surgery. Time-Based Coding :: [TOTAL MINUTES] spent with patient and on the chart (including review of chart, obtaining history, exam, reviewing outside data, placing orders, documenting exam and treatment plan, and counseling patient) on [DATE]. PROFEE Director Construction Services Document charge(s): No
[2024-12-10] MEDS: LACTATED RINGERS 1,000 ML 42 ML IV ×2 (14:57→17:16)
[2024-12-10] MEDS: ACETAMINOPHEN IV 1,000 MG/100 ML VIAL 400 MG IV (14:59)
[2024-12-10] MEDS: BUPIVACAINE 0.25% (PF) 30 ML, EPINEPHrine 0.15 MG INJ (16:43)
--- NOTE | 2024-12-10 16:53 | P.OP_ITS ---
Operative Date/Time/Diagnoses Date of procedure: 12/10/24 Time of procedure: 16:53 Pre-op diagnosis: Perforated appendicitis Post-op diagnosis: same Procedure & Clinicians Procedure: Laparoscopic appendectomy Same procedure as scheduled: Yes Surgeon: Jarrod Sotelo Anesthesia Type: General Operative Notes Procedure in detail: The patient was on IV antibiotics. The patient was brought to the operating room, placed on the table in the supine position and general endotracheal anesthesia was induced. A Phelps catheter was placed. A time-out was performed. The abdomen was prepped and draped in the usual fashion. After injection of local anesthetic a 1 cm supraumbilical midline incision was created with a 15 blade scalpel. We dissected down to the anterior sheath with cautery and the fascia was scored with in the midline. We grasped the fascial edge with a K ocher clamp to elevate the abdominal wall. The peritoneum was pierced with a Peon clamp. The Dayami port was placed and the abdomen was insufflated to 15 mmHg. The camera was inserted and there was no evidence of any injury from the entry. Next, 5 mm ports were placed in the suprapubic and left lower quadrant positions under direct vision. The patient was placed in Trendelenburg with the right-side elevated. There were loops of small bowel adherent to the anterior abdominal wall which were gently dissected free with the suction tip. There was purulent fluid throughout the abdomen which was suctioned away. Cautious blunt dissection was used to separate the appendix from the sidewall of the right colic gutter. The appendix appeared to be perforated and gangrenous at its distal third portion. There were multiple appendicoliths and contamination which was suctioned up. We created a window at the base of the appendix at its junction with the cecum. We divided the appendix with a single firing of the blue load Endo-GILA stapler. The mesoappendix was taken with the power seal device. The specimen was placed in a Endo-Catch bag. We suctioned more murky fluid from the pelvis and the right upper quadrant and left upper quadrant. A 19 round drain was brought in through the left lower quadrant port site and placed along the right colic gutter. It was sutured to the skin with a single 2-0 nylon stitch and a bulb drain was applied. The table was flattened and the terminal ileum and omentum were allowed to slide in over the appendiceal stump. The suprapubic port was removed under direct vision. The pneumoperitoneum was released and the Dayami port was removed followed by the Endo-Catch bag. Additional local was injected into the fascia and the infraumbilical incision was closed with 2 interrupted 2-0 Vicryl sutures. The skin incisions were closed with 4 Monocryl. Steri-Strips were applied followed by Band-Aids. Perforated appendicitis with purulent contamination of the abdomen and multiple small appendicoliths EBL: 15 mL Specimen: Appendix Post-operative Condition: stable Disposition: PACU
--- NOTE | 2024-12-10 17:36 | PC.NURSE ---
Addendum entered by Feli Rain R.N. 12/10/24 19:28: Patient returned from PACU at approximately 1815 He is A&OX4, slightly lethargic. He reports feeling so much better CALI drain to LLQ drained 45 cc serosanguineous fluid. X2 laps sites with allevyn CDI. Conitnuous pulse ox. IVF NS at 100 ml/hr, zosyn administered. POST OP VS per protocol. Bed alarm on, call light and urinal in reach. Continuous monitoring. Original Note: Patient received this a.m. lying in bed. He is A&OX4, VSS, afebrile on RA. He initially reports pain and nausea well controlled with compazine PRN, and Morphine PRN. he declines much appetite on clear liquid diet this a.m.Approximately 1100 a.m patient wakes up from napping in 10/10 pain in low abdomen. He is given PRN pain medications without much relief. MD Sanderson notified and he arrived to patient's bedside to evaluate patient. He is made NPO and he is taken to preop area for surgery this afternoon at approximately 2 pm. Reportedly urine has been a dark green color noted by VECTOR CONTROL ASSISTANT.
[2024-12-11] VITALS (8 sets, daily range): BP systolic 107–129; BP diastolic 54–70; PULSE 64–77; RESP 16–24; TEMP 36.2–36.7; O2SAT 91–96
--- NOTE | 2024-12-11 11:37 | PC.NURSE ---
Pt alert and oriented, c/o belly pain. discussed options. Pt agreed to take [place] to good effect. Pt able to sleep, woke rested and feeling comfortable. Surgical site intact.
--- NOTE | 2024-12-11 14:29 | CM.DPNOTE ---
DCP note MULTIPLE PRESSURE RIVETER OPERATOR reviewed EMR Pt is POD 1 lap appy. limited info from chart as of 1430. MULTIPLE PRESSURE RIVETER OPERATOR met with pt in room. in lots of pain, RN administering pain med at bedside during DCP conversation. Per pt, indep at home with partner Eli. no anticipated CM needs. pt unsure of who new PCP is since Dai Chavez left. MULTIPLE PRESSURE RIVETER OPERATOR messaged TCM team to see if pt is on new PCP caseload at this time. P: SW to follow closely in the AM with pt's progress and to confirm safe plan of home when medically stable and any further identified discharge planning needs. Will f/u on who pt's new PCP is. LAWANDA Dover
--- NOTE | 2024-12-11 15:57 | PM.PN.IH.1 ---
Subjective Subjective Date Patient Seen: 12/11/24 Time Patient Seen: 15:57 Interval history: Feels better today No appetite Exam Vital Signs (past 8 hours): - 12/11/24 08:00 12/11/24 08:00 12/11/24 12:00 Temperature 97.6 F Pulse Rate 77 Respiratory Rate 18 Blood Pressure 124/57 L Pulse Oximetry 94 94 94 Oxygen Delivery Method Room Air Room Air Oxygen Flow Rate 1 12/11/24 12:00 Temperature 97.6 F Pulse Rate 70 Respiratory Rate 16 Blood Pressure 129/54 L Pulse Oximetry 92 Oxygen Delivery Method Oxygen Flow Rate 1 Oxygen Delivery Method Room Air Oxygen Flow Rate 1 Narrative Exam Narrative: Abdomen soft Incisions CDI Drain output serosanguinous Objective Labs 12/10/24 08:32 12/10/24 08:32 [facility] Medical History Hydronephrosis Anemia Bladder incontinence Vision disorder Plantar warts Actinic keratosis (~2003) Allergies (~1989) Plantar fasciitis (~2013) Measles Tinnitus (~2009) History of urinary incontinence (~2018) History of elevated PSA BPH (benign prostatic hyperplasia) (~1999) GERD (gastroesophageal reflux disease) (~2015) Hyperlipidemia LDL goal <100 Hypertension Anxiety Irregular heartbeat Edema of both ankles Surgical History Anesthesia Status post trigger finger release (~2017) History of hernia surgery (~2003) Family History Father Cancer Mother Alzheimer's disease Sister Cancer Grandfather History of heart disease Grandmother Alzheimer's disease Social History household members: spouse Smoking Status: Former smoker Tobacco: How many years used: 30 quit status: quit date established alcohol intake: current substance use type: marijuana Assessment & Plan Assessment and plan (1) Acute appendicitis with perforation and localized peritonitis: Qualifiers: Appendicitis abscess presence: without abscess Appendicitis gangrene presence: unspecified whether gangrene present Qualified Code(s): K35.32 - Acute appendicitis with perforation, localized peritonitis, and gangrene, without abscess Status: Acute Plan Continue drain and IV antibiotics Wait for some bowel function before advancing diet Time-Based Coding :: [TOTAL MINUTES] spent with patient and on the chart (including review of chart, obtaining history, exam, reviewing outside data, placing orders, documenting exam and treatment plan, and counseling patient) on [DATE]. PROFEE Oracle [employer]a Consultant Document charge(s): No
[2024-12-11] MEDS: hydrOXYzine HCL 25 MG TABLET PO (16:02)
[2024-12-11] MEDS: HYDROMORPHONE 0.5 MG INJ IV (16:30)
[2024-12-11] MEDS: CALCIUM CARBONATE 500 MG TAB 1000 MG PO (21:27)
[2024-12-12] VITALS (7 sets, daily range): BP systolic 126–157; BP diastolic 66–84; PULSE 50–73; RESP 16–20; TEMP 35.6–36.7; O2SAT 91–96
[2024-12-12] MEDS: hydrOXYzine HCL 25 MG TABLET PO (01:58)
[2024-12-12 14:40] LABS: Add Manual Diff / Slide Review NO; Basophils Absolute Auto 0 /uL (0-100); Basophils Percent Auto 0.2 % (0-2); Eosinophils Absolute Auto 0 /uL (0-450); Eosinophils Percent Auto 0.2 % (2-4); Hemoglobin 12.5 g/dL (13.5-17.5); Lymphocytes Absolute Auto 600 /uL (1100-4500); Lymphocytes Percent Auto 3.8 % (25-40); Mean Corpuscular HGB Conc 33.8 % (30-36); Mean Corpuscular Hemoglobin 32.6 PG (26-34); Mean Corpuscular Volume 96.7 fL (80-100); Monocytes Absolute Auto 600 /uL (0-900); Monocytes Percent Auto 4.1 % (3-14); Neutrophils Absolute Auto 13500 /uL (1500-7000); Neutrophils Percent Auto 91.7 % (50-75); Platelet Count 197 X10^3/uL (150-400); Red Blood Cell Count 3.83 X10^6/uL (4.5-5.9); Red Cell Distribution Width 13.6 % (11.6-14.8); White Blood Cell Count 14.8 X10^3/uL (4.5-11.0)
--- NOTE | 2024-12-12 16:55 | PC.NURSE ---
Addendum entered by Miriam Cummins R.N. 12/12/24 19:00: Pt med w/ MS w/ good relief at this time. Resting quietly. Original Note: Pt resting at intervals Nausea continues Md notified Sat in chair for an hour w/o incidence. Abd tender, Small oozing noted where CALI was D/C'd Pt resting at intervals Call light w/in each bed alarm on for pt safety. Continue w/ plan of care.
--- NOTE | 2024-12-12 17:01 | P.PN_ITS ---
Subjective Subjective Date Patient Seen: 12/12/24 Interval history: Feels better today. Has had a bowel movement. Still minimal appetite. Exam Vital Signs (past 8 hours): - 12/12/24 12:00 12/12/24 12:00 12/12/24 16:00 Temperature 96.7 F L 98.0 F Pulse Rate 56 L 72 Respiratory Rate 18 16 Blood Pressure 156/66 H 132/76 Pulse Oximetry 94 95 91 Oxygen Delivery Method Oxygen Flow Rate 0 1 0 12/12/24 16:00 Temperature Pulse Rate Respiratory Rate Blood Pressure Pulse Oximetry 96 Oxygen Delivery Method Room Air Oxygen Flow Rate Fraction of Inspired Oxygen 24 SaO2/FiO2 Ratio 395 Oxygen Delivery Method Room Air Oxygen Flow Rate 0 Narrative Exam Narrative: Drain with clear serous output Objective Labs 12/12/24 14:10 12/10/24 08:32 Labs: Laboratory Results - last 24 hr 12/12/24 14:10 WBC 14.8 H RBC 3.83 L Hgb 12.5 L Hct 37.0 L MCV 96.7 MCH 32.6 MCHC 33.8 RDW 13.6 Plt Count 197 Neut % (Auto) 91.7 H Lymph % (Auto) 3.8 L [place] % (Auto) 4.1 Eos % (Auto) 0.2 L Baso % (Auto) 0.2 Neut # (Auto) 96969 H Lymph # (Auto) 600 L [place] # (Auto) 600 Eos # (Auto) 0 Baso # (Auto) 0 PFSH Medical History Hydronephrosis Anemia Bladder incontinence Vision disorder Plantar warts Actinic keratosis (~2003) Allergies (~1989) Plantar fasciitis (~2013) Measles Tinnitus (~2009) History of urinary incontinence (~2018) History of elevated PSA BPH (benign prostatic hyperplasia) (~1999) GERD (gastroesophageal reflux disease) (~2015) Hyperlipidemia LDL goal <100 Hypertension Anxiety Irregular heartbeat Edema of both ankles Surgical History Anesthesia Status post trigger finger release (~2017) History of hernia surgery (~2003) Family History Father Cancer Mother Alzheimer's disease Sister Cancer Grandfather History of heart disease Grandmother Alzheimer's disease Social History household members: spouse Smoking Status: Former smoker Tobacco: How many years used: 30 quit status: quit date established alcohol intake: current substance use type: marijuana Assessment & Plan Assessment and plan (1) Acute appendicitis with perforation and localized peritonitis: Qualifiers: Appendicitis abscess presence: without abscess Appendicitis gangrene presence: unspecified whether gangrene present Qualified Code(s): K35.32 - Acute appendicitis with perforation, localized peritonitis, and gangrene, without abscess Status: Acute Plan White count is downtrending but still elevated Continue antibiotics Continue Phelps for right lower quadrant and pelvic inflammation and ileus Time-Based Coding :: [TOTAL MINUTES] spent with patient and on the chart (including review of chart, obtaining history, exam, reviewing outside data, placing orders, documenting exam and treatment plan, and counseling patient) on [DATE]. PROFEE Auto Mechanics Instructor Document charge(s): No
[2024-12-13] VITALS (12 sets, daily range): BP systolic 133–170; BP diastolic 67–77; PULSE 52–70; RESP 15–17; TEMP 36.1–36.8; O2SAT 91–97
--- NOTE | 2024-12-13 12:49 | CM.DPNOTE ---
DCP Cont Patient with Acute appendicitis with perforation and localized peritonitis; improving slowly. Met w/patient and sp, explained that [facility] is working on establishing patient with new provider- Dr Agarwal. Patient requests an afternoon appointment, 2-2:30p, any day of the week works. Relayed this to TCM group who will work on scheduling patient. Plan remains discharge home w/sp and close outpatient follow up. CM team following clinical course closely. GENESIS
--- NOTE | 2024-12-13 14:22 | DIET.CONS ---
Dietary Consultation Note Admission Date: 12/08/2024 16:15 Assessment: 79 y M admitted for acute appendicitis, post appendectomy. Dietitian screened for LOS. Per chart, pt has 2 BMs in last 2 days. Pt on clear liquids diet/NPO day 5. Met with pt at bedside. Reports 2 weeks beforehand, had up and downs of not feeling right/having some nausea. Said his appetite was slightly decreased, estimate around 75% of usual intakes. Usual dietary intake is 2 meals per day of items such as oatmeal, eggs, soups, sandwiches, etc. Reports he weighed himself on scale around 2 weeks before admission and he was 179 lb. Was wearing shoes and clothes. Weight currently 180 lb. Ht: 182.88 cm Wt: 82 kg BMI: 24.7 UBW: 80.739 kg on 11/09/23, per pt report 81.36 kg 2 wks before admission. No weight loss. Last BM: 12/13/24 (12/13/24 10:44) MNA: Baltazar Score: 19 Diet: 12/09/24 Lunch Clear Liquid Diet Diet Modifications: Labs: RBC 3.83 X10^6/uL (4.5-5.9) L 12/12/24 14:10 Hgb 12.5 g/dL (13.5-17.5) L 12/12/24 14:10 Hct 37.0 % (41-53) L 12/12/24 14:10 Creatinine 1.17 mg/dL (0.66-1.25) 12/10/24 08:32 Lactate 1.0 mmol/L (0.7-2.1) 12/08/24 14:30 Nutrition Diagnosis: Inadequate oral intake r/t altered GI function/structure aeb pt s/p appendectomy and on clears/NPO 5 days Interventions: Pt has had 2 BMs per chart but minimal appetite, will monitor for diet advancement per surgery Monitoring/Evaluations: f/u tomorrow to check for diet advancement Electronically Signed by: Vanessa Chavez 12/13/24 14:22 Clinical Dietitian [address] [address]
[2024-12-13 15:18] LABS: Add Manual Diff / Slide Review NO; Basophils Absolute Auto 0 /uL (0-100); Basophils Percent Auto 0.1 % (0-2); Eosinophils Absolute Auto 0 /uL (0-450); Hematocrit 36.5 % (41-53); Lymphocytes Absolute Auto 600 /uL (1100-4500); Lymphocytes Percent Auto 4.1 % (25-40); Mean Corpuscular HGB Conc 32.9 % (30-36); Mean Corpuscular Hemoglobin 32.3 PG (26-34); Mean Corpuscular Volume 98.1 fL (80-100); Monocytes Absolute Auto 600 /uL (0-900); Monocytes Percent Auto 4.4 % (3-14); Neutrophils Absolute Auto 13500 /uL (1500-7000); Neutrophils Percent Auto 91.4 % (50-75); Platelet Count 185 X10^3/uL (150-400); Red Blood Cell Count 3.72 X10^6/uL (4.5-5.9); Red Cell Distribution Width 14.1 % (11.6-14.8); White Blood Cell Count 14.8 X10^3/uL (4.5-11.0)
--- NOTE | 2024-12-13 15:58 | PM.PNPO.1 ---
Subjective Subjective Date Patient Seen: 12/13/24 Time Patient Seen: 16:02 Interval history: Art has had a BM today and feels like his energy level is up but still nauseous and no signficant PO intake. Still feels distended. His anaya catheter had been left in place due to extensive right lower quadrant and pelvic inflammation. Was removed today. He has been walking. Exam Vital Signs (past 8 hours): - 12/13/24 08:00 12/13/24 08:29 12/13/24 12:00 Temperature Pulse Rate 52 L Respiratory Rate Blood Pressure 151/73 H Pulse Oximetry 92 92 Oxygen Delivery Method Room Air Room Air Oxygen Flow Rate 12/13/24 12:00 Temperature 97.0 F L Pulse Rate 70 Respiratory Rate 15 Blood Pressure 170/67 H Pulse Oximetry 97 Oxygen Delivery Method Oxygen Flow Rate 0 Fraction of Inspired Oxygen 24 SaO2/FiO2 Ratio 395 Oxygen Delivery Method Room Air Oxygen Flow Rate 0 Const General: No acute distress Resp Effort & Inspection: normal respiratory effort Objective Labs 12/13/24 15:00 12/10/24 08:32 Labs: Laboratory Results - last 24 hr 12/13/24 15:00 WBC 14.8 H RBC 3.72 L Hgb 12.0 L Hct 36.5 L MCV 98.1 MCH 32.3 MCHC 32.9 RDW 14.1 Plt Count 185 Neut % (Auto) 91.4 H Lymph % (Auto) 4.1 L Travis % (Auto) 4.4 Eos % (Auto) 0.0 L Baso % (Auto) 0.1 Neut # (Auto) 83026 H Lymph # (Auto) 600 L Travis # (Auto) 600 Eos # (Auto) 0 Baso # (Auto) 0 PFSH Medical History Hydronephrosis Anemia Bladder incontinence Vision disorder Plantar warts Actinic keratosis (~2003) Allergies (~1989) Plantar fasciitis (~2013) Measles Tinnitus (~2009) History of urinary incontinence (~2018) History of elevated PSA BPH (benign prostatic hyperplasia) (~1999) GERD (gastroesophageal reflux disease) (~2015) Hyperlipidemia LDL goal <100 Hypertension Anxiety Irregular heartbeat Edema of both ankles Surgical History Anesthesia Status post trigger finger release (~2018) History of hernia surgery (~2004) Family History Father Cancer Mother Alzheimer's disease Sister Cancer Grandfather History of heart disease Grandmother Alzheimer's disease Social History household members: spouse Smoking Status: Former smoker Tobacco: How many years used: 30 quit status: quit date established alcohol intake: current substance use type: marijuana Assessment & Plan Post-op Postoperative Procedures: Procedures Operation Date: 12/10/24 15:15 Actual Procedure Side Surgeon p Laparoscopic Appendectomy Jarrod Sotelo MD Postoperative status narrative: Still has a bit of an ileus Postoperative plan narrative: Once he is able to take in sufficient oral and solid POs he can be discharged
[2024-12-13] MEDS: CALCIUM CARBONATE 500 MG TAB 1000 MG PO (20:15)
[2024-12-14] VITALS (10 sets, daily range): BP systolic 130–170; BP diastolic 58–89; PULSE 54–60; RESP 14–26; TEMP 36.4–36.6; O2SAT 90–96
[2024-12-14] MEDS: CALCIUM CARBONATE 500 MG TAB 1000 MG PO (09:25)
--- NOTE | 2024-12-14 12:54 | DIET.CONS ---
Dietary Consultation Note Admission Date: 12/08/2024 16:15 Assessment: RD f/u. Met with pt at bedside, still no appetite, only tolerating apple juice. Reports vomiting during the night. Per RN, surgeon not advancing diet today. Pt day 6 of NPO/clear liquids with no significant PO intakes. RN called surgeon and left voice message regarding starting of TPN if pt's diet is unlikely to be advanced. Ht: 182.88 cm Wt: 82 kg BMI: 24.7 UBW: 80.739 kg on 11/09/23, per pt report 81.36 kg 2 wks before admission. No weight loss. Last BM: 12/13/24 (12/13/24 10:44) MNA: Baltazar Score: 19 Diet: 12/09/24 Lunch Clear Liquid Diet Diet Modifications: Nutrition Percent Meal Consumed 0% 12/13/24 15:53 Labs: RBC 3.72 X10^6/uL (4.5-5.9) L 12/13/24 15:00 Hgb 12.0 g/dL (13.5-17.5) L 12/13/24 15:00 Hct 36.5 % (41-53) L 12/13/24 15:00 Creatinine 1.17 mg/dL (0.66-1.25) 12/10/24 08:32 Lactate 1.0 mmol/L (0.7-2.1) 12/08/24 14:30 Nutrition Diagnosis: Inadequate oral intake r/t altered GI function/structure aeb pt s/p appendectomy with possible ileus and on clears/NPO 6 days Interventions: 1. Consider starting TPN if diet unlikely to be advanced in next 1-2 days. If TPN is started, reccs are as follows: Day 1: Initiate continuous TPN via PICC starting with 0.5 L Clinimix 5/20 running at 20 mL/hr for first 24 hours, if pt tolerates can advance to day 2. Day 2: 1 L Clinimix 5/20 running at 42 mL/hr, if pt tolerates, advance to day 3 Day 3: Goal rate of 1.5 L Clinimix 5/20 running at 62 mL/hr with 250 mL IVFE three times/wk Goal rate provides 85% of calorie needs and 94% of protein needs. 2. Recc K+, Mg, phos labs before initiating TPN and monitoring for the first 3 days of TPN. If K+, Mg, or phos are low, hold initiation or increase in TPN until these electrolytes are supplemented per pharmacy protocol and/or normalized. EER: [id number] kcals (25 kcals/kg vs MSJx1.25) 80 g protein (1g/kg per age) Monitoring/Evaluations: f/u on diet per surgery Electronically Signed by: Vanessa Chavez 12/14/24 12:54 Clinical Dietitian [address] [id number]
--- NOTE | 2024-12-14 16:51 | CM.DPNOTE ---
DCP Continued: Reviewed EMR and team rounds for pt?s medical status. Per rounds, pt experiencing nausea and minimal nutrition intake although having bowel movements; slow improvements. Coordinating with TCM group for new patient appointment utilizing pt preference for afternoon time, pending response. Plan: Anticipating dc home with Sig Other when medically cleared. CM Team will continue to follow for coordination of discharge plans. ROSALINDA De Jesus
--- NOTE | 2024-12-14 18:36 | PC.NURSE ---
Addendum entered by Feli Rain R.N. 12/14/24 19:35: Voicemail left with MD Alvarado regarding Chief Medical Technologist recommendation for starting TPN. Pt Also placed on 2 LNC due to SOB, 02 sat 86% on RA. Original Note: Patient abdomen is increasingly distended today. He reports LBM 12/13/24, patient denies passing much gas. Noted hypoactive BS x4. MD at bedside evaluating patient ordered NPO for today. Patient complains of nausea medications but also reluctant to take medications. He states he pefers to take medication po route. This evening his BP is elevated SBP 170's. Patient states at home he takes alternative medication Drew, for htn. Notified MD of elevated BP this evening. She is currently in surgery. Endorsed to oncoming RN.
--- NOTE | 2024-12-15 | DI.RAD.S_ITS ---
PROCEDURE: XR CHEST FOR PICC 1V INDICATIONS: PICC LINE PLACEMENT COMPARISON: [facility], CR, XR CHEST 1V, 12/15/2024, 16:46. FINDINGS: PICC was placed by the intravenous therapy team from the right side. Fluoroscopic spot film demonstrates the tip of PICC projecting to the area of mid SVC. IMPRESSION: Tip of PICC projects to the area of mid SVC. Approved by: Yobani Leach M.D. on 12/15/2024 at 17:09
[2024-12-15 00:49] VITALS: BP 154/85; PULSE 63; RESP 16; TEMP 36.6; O2SAT 92
--- NOTE | 2024-12-15 03:23 | PM.PN.IH.1 ---
Subjective Subjective Date Patient Seen: 12/14/24 Time Patient Seen: 09:01 Interval history: Late Entry Note for 12/14 Patient having nausea and emesis this am. States the medications are making him nauseous and would rather have pills. Passing some flatus and having liquid bowel movements. Pain is controlled Exam Vital Signs (past 8 hours): - 12/14/24 20:30 12/15/24 00:49 Temperature 97.7 F 97.9 F Pulse Rate 56 L 63 Respiratory Rate 16 16 Blood Pressure 161/89 H 154/85 H Pulse Oximetry 95 92 Oxygen Flow Rate 2 4 Fraction of Inspired Oxygen 24 SaO2/FiO2 Ratio 395 Oxygen Delivery Method Nasal Cannula Oxygen Flow Rate 4 Const General: cooperative and comfortable HENMT Head: normal to inspection and normocephalic Nose: external nose normal Mouth: oral mucosae normal Eyes General: appearance normal, both eyes and all related structures Neck Neck: normal visual inspection Chest Chest: normal inspection of the chest Resp Effort & Inspection: normal respiratory effort GI Inspection: distended and incision (serous drainage from LLQ incision) Palpation: soft and tender Percussion: tympanic to percussion Skin General: no rashes or lesions noted Neuro General: patient alert, patient awake and patient oriented x3 Speech: speech normal Extrem General: normal to inspection Psych Appearance: grossly normal Mental Status: mental status grossly normal Objective Labs 12/13/24 15:00 12/10/24 08:32 [facility] Medical History Hydronephrosis Anemia Bladder incontinence Vision disorder Plantar warts Actinic keratosis (~2003) Allergies (~1989) Plantar fasciitis (~2013) Measles Tinnitus (~2009) History of urinary incontinence (~2018) History of elevated PSA BPH (benign prostatic hyperplasia) (~1999) GERD (gastroesophageal reflux disease) (~2015) Hyperlipidemia LDL goal <100 Hypertension Anxiety Irregular heartbeat Edema of both ankles Surgical History Anesthesia Status post trigger finger release (~2017) History of hernia surgery (~2003) Family History Father Cancer Mother Alzheimer's disease Sister Cancer Grandfather History of heart disease Grandmother Alzheimer's disease Social History household members: spouse Smoking Status: Former smoker Tobacco: How many years used: 30 quit status: quit date established alcohol intake: current substance use type: marijuana Assessment & Plan Assessment and plan (1) Acute appendicitis with perforation and localized peritonitis: Qualifiers: Appendicitis abscess presence: without abscess Appendicitis gangrene presence: unspecified whether gangrene present Qualified Code(s): K35.32 - Acute appendicitis with perforation, localized peritonitis, and gangrene, without abscess Status: Acute (2) Ileus following gastrointestinal surgery: Status: Acute Assessment & Plan narrative: This is a 79 year old M who is s/p laparoscopic appendectomy for acute perforated appendicitis who has developed a post operative ileus - NPO, IVF. Will send off nutrition labs on 12/15. Patient would possibly benefit from TPN as he will likely be here for additional time recovering from surgery/ileus - KUB on 12/15 to eval for need for possible NG. If patient continues to have emesis, will place NG - Replace electrolytes PRN - Minimize narcotics - Continue zosyn. Will repeat CT abdomen pelvis once patient is around POD#5 to eval for intra-abdominal abcess - Continue inpatient care. Will follow along. Please call with questions or concerns Time-Based Coding :: [TOTAL MINUTES] spent with patient and on the chart (including review of chart, obtaining history, exam, reviewing outside data, placing orders, documenting exam and treatment plan, and counseling patient) on [DATE]. PROFEE Sales Associate Fishing Document charge(s): Yes Charge Codes Subsequent inpatient/observation care: [id number]
[2024-12-15] MEDS: DEXTROSE 5%-0.45NS W/KCL 20MEQ 1,000 ML 100 MEQ IV (04:25)
[2024-12-15 05:13] VITALS: BP 162/87; PULSE 56; RESP 22; TEMP 36.2; O2SAT 93
--- NOTE | 2024-12-15 10:52 | PC.NURSE ---
Addendum entered by Sherie Hamilton R.N. 12/15/24 19:03: 1835 Per megan Aranda to use PICC/NGT. Addendum entered by Sherie Hamilton R.N. 12/15/24 18:19: 1815 Patient cleansed and linens changed at this time. Addendum entered by Sherie Hamilton R.N. 12/15/24 17:47: 1747 PICC line and NGT placed. Call placed to MD regarding megan to use due to proper placement. MD to review XRs and call back. Addendum entered by Sherie Hamilton R.N. 12/15/24 15:21: 1521 NGT placed at this time. Addendum entered by Sherie Hamilton R.N. 12/15/24 12:49: 1215 MD Alvarado at the bedside, updating patient on plan of care. MD to place orders for NGT and PICC placement. Original Note: 0741 Report received from nightsarft RN. Patient AAO x's 4. Able to MARTINS. Abdomen distended, firm and tender to touch, incisions noted with BARBARA martinez. PIV infusing IVF to left arm, CDI. Call light within reach and bed in lowest position. 0900 Patient assisted to chair.
[2024-12-15 11:00] VITALS: BP 180/78; PULSE 57; RESP 14; O2SAT 95
--- NOTE | 2024-12-15 11:04 | DI.RAD.S_ITS ---
PROCEDURE: XR ABDOMEN MIN 2V INDICATIONS: eval ileus vs SBO TECHNIQUE: 2 views of the abdomen were acquired. COMPARISON: None. FINDINGS: Surgical changes and devices: None. Bowel: Dilated small bowel loops measure up to 6.3 cm. Multiple air-fluid levels some of which differential. No evidence of gross free air. Herniorrhaphy fasteners in the pelvis. Soft tissues: No masses; visualized solid organ contours appear normal in size. No suspicious abdominal calcifications. Bones: No suspicious bony abnormalities. IMPRESSION: Small-bowel obstruction Approved by: Yobani Leach M.D. on 12/15/2024 at 10:56
[2024-12-15 11:57] LABS: Hemoglobin 13.5 g/dL (13.5-17.5); Mean Corpuscular HGB Conc 33.7 % (30-36); Mean Corpuscular Hemoglobin 32.8 PG (26-34); Mean Corpuscular Volume 97.5 fL (80-100); Platelet Count 268 X10^3/uL (150-400); Red Cell Distribution Width 13.8 % (11.6-14.8); White Blood Cell Count 16.7 X10^3/uL (4.5-11.0)
[2024-12-15 12:05] LABS: HEMOLYSIS < 15 (0-50)
[2024-12-15 12:10] LABS: Alanine Aminotransferase 42 IU/L (<50); Albumin 3.5 g/dL (3.5-5.0); Albumin Globulin Ratio 1.1 (1.0-2.8); Alkaline Phosphatase 67 U/L (38-126); Aspartate Aminotransferase 51 IU/L (17-59); Bilirubin Total 1.1 mg/dL (0.2-1.3); Bilirubin Unconjugated 0.9 mg/dL (0.0-1.1); Cholesterol 158 mg/dL (140-199); Globulin 3.1 g/dL (1.7-4.1); HDL Cholesterol 23 mg/dL (40-60); LDL Cholesterol Calculated 108 mg/dL (<100); Total Protein 6.6 g/dL (6.3-8.2); Triglycerides 135 mg/dL (35-150)
[2024-12-15 12:11] LABS: BUN Creatinine Ratio 32.7 (6-22); Blood Urea Nitrogen 36 mg/dL (9-20); Calcium 9.1 mg/dL (8.4-10.2); Carbon Dioxide 27 mmol/L (22-32); Chloride 104 mmol/L (98-107); Estimated Glomerular Filt Rate > 60 mL/min (>60); Glucose 117 mg/dL (80-110); HEMOLYSIS < 15 (0-50); Magnesium 1.8 mg/dL (1.6-2.3); Potassium 3.3 mmol/L (3.4-5.1); Sodium 141 mmol/L (137-145)
[2024-12-15 12:24] LABS: Prealbumin 16.7 mg/dL (17.6-36.0)
[2024-12-15] MEDS: MAGNESIUM SULFATE 2 GM/50 ML PIGGYBACK IV (13:36)
[2024-12-15] MEDS: POTASSIUM CHLORIDE IN WATER 10 MEQ/100 ML PIGGYBACK 100 MEQ IV ×6 (13:49→19:34)
[2024-12-15 14:42] LABS: Neutrophils Absolute Manual 14195 /uL (3000-5900); Total Cells Counted 100
[2024-12-15 14:49] LABS: Platelet Estimate Adequate on smear; RBC Morphology Normal Morphology
[2024-12-15] MEDS: LIDOCAINE 2% (GLYDO) 6 ML GEL 1 ML TOP (15:19)
--- NOTE | 2024-12-15 16:41 | DI.RAD.S_ITS ---
PROCEDURE: XR CHEST 1V INDICATIONS: NGT placement verification TECHNIQUE: One view of the chest was acquired. COMPARISON: None. FINDINGS: Surgical changes and devices: Nasogastric tube in the stomach. Bibasilar atelectasis and or infiltrate. Lungs and pleura: Lungs are clear. No pleural effusions or pneumothorax. Mediastinum: Mediastinal contours appear normal. Heart size is normal. Bones and chest wall: No suspicious bony lesions. Overlying soft tissues appear unremarkable. IMPRESSION: Nasogastric tube in the stomach Approved by: Yobani Leach M.D. on 12/15/2024 at 16:28
--- NOTE | 2024-12-15 16:46 | PM.PN.IH.1 ---
Subjective Subjective Date Patient Seen: 12/15/24 Time Patient Seen: 11:25 Interval history: Patient has continued to have nausea and emesis. Abdominal x-ray was ordered which demonstrated concerns for small bowel obstruction. NG tube insertion ordered. Patient continues to complain of crampy diffuse abdominal pain which is mild in nature. He has remained on antibiotics and leukocytosis has worsened to 16,000 today. Nutrition labs ordered today. Exam Vital Signs (past 8 hours): - 12/15/24 11:00 Pulse Rate 57 L Respiratory Rate 14 Blood Pressure 180/78 H Pulse Oximetry 95 Oxygen Flow Rate 0 Fraction of Inspired Oxygen 24 SaO2/FiO2 Ratio 395 Oxygen Delivery Method Room Air Oxygen Flow Rate 0 Const General: cooperative, well developed and frail appearing Orientation: alert, awake and oriented x3 HENMT Head: normal to inspection Nose: external nose normal Eyes General: appearance normal, both eyes and all related structures Neck Neck: normal visual inspection Chest Chest: normal inspection of the chest Resp Effort & Inspection: normal respiratory effort and other (Requiring oxygen) GI Inspection: distended (Moderate to severe distention) and incision (LLQ incision draining serous fluid. Incisions c/d/i) Palpation: soft and tender (Mild tenderness to palpation) Skin General: no rashes or lesions noted Neuro General: patient alert, patient awake and patient oriented x3 Cognition: normal cognition Speech: speech normal Extrem General: normal to inspection Psych Appearance: grossly normal Mental Status: mental status grossly normal Speech and Movement: speech and movement normal Objective Labs 12/15/24 11:45 12/15/24 11:45 Labs: Laboratory Results - last 24 hr 12/15/24 11:45 WBC 16.7 H RBC 4.10 L Hgb 13.5 Hct 40.0 L MCV 97.5 MCH 32.8 MCHC 33.7 RDW 13.8 Plt Count 268 Total Counted 100 Seg Neutrophils % 82.0 H Band Neutrophils % 3.0 Lymphocytes % (Manual) 8.0 L Monocytes % (Manual) 7.0 Neutrophils # (Manual) 73848 H Platelet Estimate Adequate on smear RBC Morphology Normal morphology Sodium 141 Potassium 3.3 L Chloride 104 Carbon Dioxide 27 BUN 36 H Creatinine 1.10 Estimated GFR > 60 BUN/Creatinine Ratio 32.7 H Glucose 117 H Calcium 9.1 Phosphorus 3.0 Magnesium 1.8 Total Bilirubin 1.1 Conjugated Bilirubin 0.0 Unconjugated Bilirubin 0.9 AST 51 ALT 42 Alkaline Phosphatase 67 Total Protein 6.6 Albumin 3.5 Globulin 3.1 Albumin/Globulin Ratio 1.1 Prealbumin 16.7 L Triglycerides 135 Cholesterol 158 LDL Cholesterol, Calc 108 H HDL Cholesterol 23 L PFSH Medical History Hydronephrosis Anemia Bladder incontinence Vision disorder Plantar warts Actinic keratosis (~2003) Allergies (~1989) Plantar fasciitis (~2013) Measles Tinnitus (~2009) History of urinary incontinence (~2018) History of elevated PSA BPH (benign prostatic hyperplasia) (~1999) GERD (gastroesophageal reflux disease) (~2015) Hyperlipidemia LDL goal <100 Hypertension Anxiety Irregular heartbeat Edema of both ankles Surgical History Anesthesia Status post trigger finger release (~2017) History of hernia surgery (~2003) Family History Father Cancer Mother Alzheimer's disease Sister Cancer Grandfather History of heart disease Grandmother Alzheimer's disease Social History household members: spouse Smoking Status: Former smoker Tobacco: How many years used: 30 quit status: quit date established alcohol intake: current substance use type: marijuana Assessment & Plan Assessment and plan (1) Small bowel obstruction: Status: Acute (2) Acute appendicitis with perforation and localized peritonitis: Qualifiers: Appendicitis abscess presence: without abscess Appendicitis gangrene presence: unspecified whether gangrene present Qualified Code(s): K35.32 - Acute appendicitis with perforation, localized peritonitis, and gangrene, without abscess Status: Acute Assessment & Plan narrative: This is a 79 year old M who is POD #5 s/p laparoscopic appendectomy for acute perforated appendicitis who has developed a post operative small bowel obstruction - NPO, IVF, NG tube insertion. Consult for PICC insertion order. Initiate TPN today for small bowel obstruction - CT abdomen and pelvis ordered for tomorrow with p.o. and IV contrast. We will evaluate for intra-abdominal abscess and source of small-bowel obstruction. - Replace electrolytes PRN - Minimize narcotics - Leukocytosis worsening: Continue zosyn. Will repeat CT abdomen pelvis tomorrow - Continue inpatient care. Will follow along. Please call with questions or concerns Time-Based Coding :: [TOTAL MINUTES] spent with patient and on the chart (including review of chart, obtaining history, exam, reviewing outside data, placing orders, documenting exam and treatment plan, and counseling patient) on [DATE]. PROFEE Switchboard Wire Worker Helper Document charge(s): Yes Charge Codes Subsequent inpatient/observation care: [id number]
[2024-12-15 17:13] VITALS: BP 164/83; PULSE 61; RESP 16; TEMP 36.8; O2SAT 96
[2024-12-15] MEDS: DEXT IV (17:16)
[2024-12-15] MEDS: MULTIVITAMIN IV (17:16)
[2024-12-15] MEDS: CALCIUM IV (17:16)
[2024-12-15] MEDS: [UNRECOGNIZED DRUG - OTHER] IV (17:16)
[2024-12-15] MEDS: TRACE ELEMENTS IV (17:16)
[2024-12-15] MEDS: LYTES IV (17:16)
[2024-12-15 20:00] VITALS: BP 166/85; PULSE 57; RESP 18; TEMP 36.3; O2SAT 98
[2024-12-15] MEDS: BENZOCAINE/MENTHOL 1 LOZ PKT 1 EACH PO (22:16)
[2024-12-16] MEDS: BENZOCAINE/MENTHOL 1 LOZ PKT 1 EACH PO (00:37)
[2024-12-16] MEDS: DEXTROSE 5%-0.45NS W/KCL 20MEQ 1,000 ML 80 MEQ IV ×2 (01:53→15:39)
[2024-12-16 02:00] VITALS: BP 159/77; PULSE 60; RESP 18; TEMP 36.6; O2SAT 96
--- NOTE | 2024-12-16 04:04 | PC.WOUNDPHOT ---
Blister forming near site of surgical intervention at umbilicus. Lap site open to air and weeping, approx 1.5 cm long
[2024-12-16 05:54] LABS: Hematocrit 36.3 % (41-53); Hemoglobin 12.4 g/dL (13.5-17.5); Mean Corpuscular HGB Conc 34.2 % (30-36); Mean Corpuscular Hemoglobin 33.1 PG (26-34); Mean Corpuscular Volume 96.6 fL (80-100); Platelet Count 269 X10^3/uL (150-400); Red Blood Cell Count 3.76 X10^6/uL (4.5-5.9); Red Cell Distribution Width 13.6 % (11.6-14.8); White Blood Cell Count 15.1 X10^3/uL (4.5-11.0)
[2024-12-16 06:05] LABS: BUN Creatinine Ratio 28.4 (6-22); Blood Urea Nitrogen 29 mg/dL (9-20); Carbon Dioxide 27 mmol/L (22-32); Chloride 107 mmol/L (98-107); Estimated Glomerular Filt Rate > 60 mL/min (>60); Glucose 135 mg/dL (80-110); HEMOLYSIS < 15 (0-50); Magnesium 1.8 mg/dL (1.6-2.3); Phosphorous 2.6 mg/dL (2.3-3.7); Potassium 3.5 mmol/L (3.4-5.1); Sodium 140 mmol/L (137-145)
[2024-12-16 06:23] LABS: Neutrophils Absolute Manual 12382 /uL (3000-5900); Total Cells Counted 100
[2024-12-16 06:24] LABS: Platelet Estimate Adequate on smear; RBC Morphology Normal Morphology
--- NOTE | 2024-12-16 06:57 | PC.NURSE ---
LLQ lap site has increasing drainage, saturating ABD dressing approx every 2 hours with serous drainage. Photos taken of site of surgical intervention, see wound photo note. Patient denies any increase in pain in that particular area.
[2024-12-16] MEDS: POTASSIUM CHLORIDE IN WATER 10 MEQ/100 ML PIGGYBACK 100 MEQ IV ×2 (07:57→09:19)
[2024-12-16 08:00] VITALS: BP 166/78; PULSE 53; RESP 17; TEMP 37.1; O2SAT 96
--- NOTE | 2024-12-16 08:00 | DI.CT.S_ITS ---
PROCEDURE: CT CHEST ABD PEL W CON INDICATIONS: eval chest for pneumonia, SBO and intra-abdominal abscess TECHNIQUE: After the administration of intravenous contrast, 5 mm thick sections acquired from the lung apices to the symphysis. 5 mm coronal and sagittal reformats were performed, with additional 7 mm MIP reformats through the lungs. For radiation dose reduction, the following was used: automated exposure control, adjustment of mA and/or kV according to patient size. COMPARISON: None. FINDINGS: Image quality: Excellent. CHEST: Lower Neck: No enlarged lymph nodes. Thyroid: No thyroid nodules which require sonographic follow up, per consensus guidelines. Axillae: No enlarged lymph nodes. Chest Wall: Right upper approach PICC tip terminates in the cavoatrial junction.. Lungs and Pleura: Small pleural effusions. Bibasilar atelectasis. Heart: Heart size is enlarged. No pericardial effusion. Thoracic Vessels: The aorta and pulmonary arteries demonstrate normal size. Mediastinum and Karyn: No enlarged lymph nodes. Esophagus: No wall thickening. No hiatal hernia. ABDOMEN: Liver: No solid mass. Macro lobulated liver contour. Gallbladder: No radiopaque gallstones or wall thickening. Biliary ducts: No biliary dilation. Pancreas: No ductal dilation. Spleen: Size is within normal limits. Adrenal Glands: No adrenal nodules. Kidneys and Ureters:4 Stomach and Bowel: Gastric tube tip and side port terminate in the stomach. Distended loops of small bowel, with a slow transition in the right lower quadrant (series 3, image 38). Peritoneum: Small volume ascites. Ventral Wall: No significant ventral hernia. Mild anasarca. Abdominal Nodes: No retroperitoneal or mesenteric adenopathy by size criteria. Vessels: Aorta and inferior vena cava are normal in size. PELVIS: Pelvic Organs: Unremarkable. Bladder: No bladder wall thickening, accounting for underdistention. Pelvic Nodes: No enlarged lymph nodes. Miscellaneous: No inguinal hernias are seen. Prior inguinal hernia repair. Bones: No aggressive osseous abnormality. IMPRESSION: Distended loops of small bowel, with a gradual transition in the right lower quadrant. Findings favor adynamic ileus over partial, low-grade bowel obstruction. Bilateral ureterectasis. Findings may indicate an ascending urinary tract infection. Correlate with urinalysis. Third-spacing of fluids, with small pleural effusions, small volume ascites and anasarca. Macro lobulated liver contour, concerning for cirrhosis. Dictated by: Rodo Oakes M.D. on 12/16/2024 at 10:39 Approved by: Rodo Oakes M.D. on 12/16/2024 at 10:47
[2024-12-16 09:23] VITALS: O2SAT 96
--- NOTE | 2024-12-16 10:11 | P.PN_ITS ---
Subjective Subjective Date Patient Seen: 12/16/24 Time Patient Seen: 12:28 Interval history: Patient underwent NG tube insertion due to small bowel obstruction demonstrated on KUB yesterday. CT abdomen and pelvis demonstrated anasarca and possible ileus versus low-grade small bowel obstruction and right lower quadrant. NG tube removed proximally 4.6 L overnight. Patient states that he feels better today. He is not passing any flatus. Pain has been well controlled. Exam Vital Signs (past 8 hours): - 12/16/24 08:00 12/16/24 09:23 Temperature 98.7 F Pulse Rate 53 L Respiratory Rate 17 Blood Pressure 166/78 H Pulse Oximetry 96 96 Oxygen Delivery Method Nasal Cannula Oxygen Flow Rate 2 2 Fraction of Inspired Oxygen 24 SaO2/FiO2 Ratio 395 Oxygen Delivery Method Nasal Cannula Oxygen Flow Rate 2 Const General: cooperative, comfortable and well developed Nutritional Appearance: average body habitus HENMT Head: normal to inspection and normocephalic Nose: external nose normal and other (NG tube in place) Eyes General: appearance normal, both eyes and all related structures Neck Neck: normal visual inspection Chest Chest: normal inspection of the chest Resp Effort & Inspection: normal respiratory effort and no respiratory distress GI Inspection: normal to inspection, distended (Less distended than yesterday) and incision (Left lower quadrant incision draining serous fluid) Palpation: soft and No tender Percussion: tympanic to percussion Back/Spine/Pelvis Back: normal to inspection Skin General: no rashes or lesions noted Neuro General: patient alert, patient awake and patient oriented x3 Cognition: normal cognition Speech: speech normal Extrem General: normal to inspection Psych Appearance: grossly normal and well kempt Speech and Movement: speech and movement normal Objective Imaging CT scan - abdomen: My impression: I reviewed the CT scan and agree with the radiologist's impression Radiologist's impression: [address] [address] [address] Scan Report Signed Patient: Felipe Dominique MR#: [id number] : 1945 Acct:[id number] Age/Sex: 79 / M Date of Service: 12/16/24 Loc: 221-1 Accession Number: [id number] Procedure: CT chest abd pel w con Ordering Provider: Ana Luisa Alvarado MD PROCEDURE: CT CHEST ABD PEL W CON INDICATIONS: eval chest for pneumonia, SBO and intra-abdominal abscess TECHNIQUE: After the administration of intravenous contrast, 5 mm thick sections acquired from the lung apices to the symphysis. 5 mm coronal and sagittal reformats were performed, with additional 7 mm MIP reformats through the lungs. For radiation dose reduction, the following was used: automated exposure control, adjustment of mA and/or kV according to patient size. COMPARISON: None. FINDINGS: Image quality: Excellent. CHEST: Lower Neck: No enlarged lymph nodes. Thyroid: No thyroid nodules which require sonographic follow up, per consensus guidelines. Axillae: No enlarged lymph nodes. Chest Wall: Right upper approach PICC tip terminates in the cavoatrial junction.. Lungs and Pleura: Small pleural effusions. Bibasilar atelectasis. Heart: Heart size is enlarged. No pericardial effusion. Thoracic Vessels: The aorta and pulmonary arteries demonstrate normal size. Mediastinum and Karyn: No enlarged lymph nodes. Esophagus: No wall thickening. No hiatal hernia. ABDOMEN: Liver: No solid mass. Macro lobulated liver contour. Gallbladder: No radiopaque gallstones or wall thickening. Biliary ducts: No biliary dilation. Pancreas: No ductal dilation. Spleen: Size is within normal limits. Adrenal Glands: No adrenal nodules. Kidneys and Ureters:4 Stomach and Bowel: Gastric tube tip and side port terminate in the stomach. Distended loops of small bowel, with a slow transition in the right lower quadrant (series 3, image 38). Peritoneum: Small volume ascites. Ventral Wall: No significant ventral hernia. Mild anasarca. Abdominal Nodes: No retroperitoneal or mesenteric adenopathy by size criteria. Vessels: Aorta and inferior vena cava are normal in size. PELVIS: Pelvic Organs: Unremarkable. Bladder: No bladder wall thickening, accounting for underdistention. Pelvic Nodes: No enlarged lymph nodes. Miscellaneous: No inguinal hernias are seen. Prior inguinal hernia repair. Bones: No aggressive osseous abnormality. IMPRESSION: Distended loops of small bowel, with a gradual transition in the right lower quadrant. Findings favor adynamic ileus over partial, low-grade bowel obstruction. Bilateral ureterectasis. Findings may indicate an ascending urinary tract infection. Correlate with urinalysis. Third-spacing of fluids, with small pleural effusions, small volume ascites and anasarca. Macro lobulated liver contour, concerning for cirrhosis. Dictated by: Rodo Oakes M.D. on 12/16/2024 at 10:39 Approved by: Rodo Oakes M.D. on 12/16/2024 at 10:47 Labs 12/16/24 05:10 12/16/24 05:10 Labs: Laboratory Results - last 24 hr 12/15/24 12/16/24 11:45 05:10 WBC 16.7 H 15.1 H RBC 4.10 L 3.76 L Hgb 13.5 12.4 L Hct 40.0 L 36.3 L MCV 97.5 96.6 MCH 32.8 33.1 MCHC 33.7 34.2 RDW 13.8 13.6 Plt Count 268 269 Total Counted 100 100 Seg Neutrophils % 82.0 H 76.0 H Band Neutrophils % 3.0 6.0 Lymphocytes % (Manual) 8.0 L 11.0 L Monocytes % (Manual) 7.0 4.0 Eosinophils % (Manual) 3.0 Neutrophils # (Manual) 19785 H 06537 H Platelet Estimate Adequate on smear Adequate on smear RBC Morphology Normal morphology Normal morphology Sodium 141 140 Potassium 3.3 L 3.5 Chloride 104 107 Carbon Dioxide 27 27 BUN 36 H 29 H Creatinine 1.10 1.02 Estimated GFR > 60 > 60 BUN/Creatinine Ratio 32.7 H 28.4 H Glucose 117 H 135 H Calcium 9.1 8.0 L Phosphorus 3.0 2.6 Magnesium 1.8 1.8 Total Bilirubin 1.1 Conjugated Bilirubin 0.0 Unconjugated Bilirubin 0.9 AST 51 ALT 42 Alkaline Phosphatase 67 Total Protein 6.6 Albumin 3.5 Globulin 3.1 Albumin/Globulin Ratio 1.1 Prealbumin 16.7 L Triglycerides 135 Cholesterol 158 LDL Cholesterol, Calc 108 H HDL Cholesterol [address] [facility] Medical History Hydronephrosis Anemia Bladder incontinence Vision disorder Plantar warts Actinic keratosis (~2003) Allergies (~1989) Plantar fasciitis (~2013) Measles Tinnitus (~2009) History of urinary incontinence (~2018) History of elevated PSA BPH (benign prostatic hyperplasia) (~1999) GERD (gastroesophageal reflux disease) (~2015) Hyperlipidemia LDL goal <100 Hypertension Anxiety Irregular heartbeat Edema of both ankles Surgical History Anesthesia Status post trigger finger release (~2018) History of hernia surgery (~2004) Family History Father Cancer Mother Alzheimer's disease Sister Cancer Grandfather History of heart disease Grandmother Alzheimer's disease Social History household members: spouse Smoking Status: Former smoker Tobacco: How many years used: 30 quit status: quit date established alcohol intake: current substance use type: marijuana Assessment & Plan Assessment and plan (1) Small bowel obstruction: Status: Acute (2) Ileus following gastrointestinal surgery: Status: Acute (3) Acute appendicitis with perforation and localized peritonitis: Qualifiers: Appendicitis abscess presence: without abscess Appendicitis gangrene presence: unspecified whether gangrene present Qualified Code(s): K35.32 - Acute appendicitis with perforation, localized peritonitis, and gangrene, without abscess Status: Acute Assessment & Plan narrative: This is a 79 year old M who is POD #6 s/p laparoscopic appendectomy for acute perforated appendicitis who has developed a post operative small bowel obstruction - NPO, IVF, NG tube insertion. Continue PICC and TPN - no abscess identified on CT scan today. We will continue Zosyn for additional 3 days then discontinue - Replace electrolytes PRN - Minimize narcotics - Leukocytosis: Slightly improved today. We will continue to monitor - Continue inpatient care. Will follow along. 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
[2024-12-16] MEDS: LACTATED RINGERS 1,000 ML 1000 ML IV (10:48)
--- NOTE | 2024-12-16 12:28 | CM.DPNOTE ---
DCP note GEEK SQUAD MANAGER reviewed EMR. pt POD6 lap appy. slow recovery process. per multidisciplinary team in morning rounds, pt started on TPN yesterday. has an NG tube. CT today. ALEXANDRA unknown. no new CM needs identified at this time. Coordinating with TCM group for new patient appointment utilizing pt preference for afternoon time, pending response. Plan: Anticipating dc home with Sig Other when medically cleared. CM Team will continue to follow for coordination of discharge plans LAWANDA [place]
[2024-12-16 14:00] VITALS: BP 163/78; PULSE 53; RESP 16; TEMP 37; O2SAT 95
[2024-12-16 15:30] LABS: Appearance Urine UA CLEAR; Bilirubin Urine UA NEGATIVE (NEGATIVE); Color Urine UA YELLOW; Glucose Urine UA NEGATIVE (Negative); Ketones Urine UA NEGATIVE (NEGATIVE); Leukocyte Esterase Urine UA NEGATIVE (NEGATIVE); Nitrite Urine UA NEGATIVE (Negative); Occult Blood Urine UA 3+ (Negative); Protein Urine UA 2+ (Negative); Urobilinogen Urine UA 0.2 E.U./dL (0.2)
[2024-12-16 15:58] LABS: Bacteria Urine None Seen; Culture Indicated Urine Cult Not Indicated; RBC Urine 10-30/HPF (0-5/HPF); Squamous Epithelial Cell Urine 0-1 /HPF (0-5/HPF); Urine Volume 10mL (spun); WBC Urine 0-1/HPF (0-5/HPF)
[2024-12-16] MEDS: ENOXAPARIN 40 MG/0.4 ML SYRINGE SUBCUT (17:14)
[2024-12-16] MEDS: AA 5 %/CALCIUM/LYTES/DEXT 20 % 1,000 ML with MULTIVITAMIN 10 ML, TRACE ELEMENTS 1 ML 42.125 ML IV (18:07)
[2024-12-16 20:00] VITALS: BP 159/77; PULSE 60; RESP 18; TEMP 36.2; O2SAT 94
[2024-12-17 02:00] VITALS: BP 152/74; PULSE 54; RESP 18; TEMP 36.2; O2SAT 93
[2024-12-17 05:03] LABS: Hematocrit 35.8 % (41-53); Hemoglobin 12.1 g/dL (13.5-17.5); Mean Corpuscular HGB Conc 33.8 % (30-36); Mean Corpuscular Hemoglobin 32.8 PG (26-34); Mean Corpuscular Volume 97.2 fL (80-100); Platelet Count 269 X10^3/uL (150-400); Red Blood Cell Count 3.69 X10^6/uL (4.5-5.9); Red Cell Distribution Width 13.5 % (11.6-14.8); White Blood Cell Count 15.4 X10^3/uL (4.5-11.0)
[2024-12-17 05:14] LABS: BUN Creatinine Ratio 23.7 (6-22); Blood Urea Nitrogen 23 mg/dL (9-20); Calcium 7.8 mg/dL (8.4-10.2); Carbon Dioxide 26 mmol/L (22-32); Chloride 106 mmol/L (98-107); Estimated Glomerular Filt Rate > 60 mL/min (>60); Glucose 137 mg/dL (80-110); HEMOLYSIS < 15 (0-50); Magnesium 1.6 mg/dL (1.6-2.3); Phosphorous 2.7 mg/dL (2.3-3.7); Potassium 3.5 mmol/L (3.4-5.1); Sodium 137 mmol/L (137-145)
[2024-12-17 06:12] LABS: Neutrophils Absolute Manual 13398 /uL (3000-5900); RBC Morphology Normal Morphology; Total Cells Counted 100
[2024-12-17] MEDS: DEXTROSE 5%-0.45NS W/KCL 20MEQ 1,000 ML 60 MEQ IV ×2 (06:22→21:25)
--- NOTE | 2024-12-17 06:46 | PC.NURSE ---
LLQ incision draining large amounts of serous fluid, saturating ABD pad approximately Q4hrs. Dressing changes performed as needed. Patient denies abd pain or nausea.
[2024-12-17 08:00] VITALS: BP 150/66; PULSE 52; RESP 16; O2SAT 94
[2024-12-17 08:17] VITALS: O2SAT 93
--- NOTE | 2024-12-17 09:06 | DIET.PN1 ---
Dietary Progress Note Assessment: RD f/u Consulted for TPN initiation. TPN started Tuesday. Tolerating 1 L this morning, K+, phos, Mg all within normal limits. Advance to goal rate of 1.5 L Clinimix 03/05 today. Will continue to monitor. Ht: 182.88 cm Wt: 82 kg BMI: 24.7 Last BM: 12/16/24 (12/16/24 19:08) MNA: Baltazar Score: 17 Diet: 12/15/24 03:31 NPO Diet Diet Modifications: NPO Type: NPO except for Meds Labs: RBC 3.69 X10^6/uL (4.5-5.9) L 12/17/24 04:20 Hgb 12.1 g/dL (13.5-17.5) L 12/17/24 04:20 Hct 35.8 % (41-53) L 12/17/24 04:20 Creatinine 0.97 mg/dL (0.66-1.25) 12/17/24 04:20 Lactate 1.0 mmol/L (0.7-2.1) 12/08/24 14:30 Electronically Signed by: Vanessa Chavez 12/17/24 09:06 Clinical Dietitian [address] [address]
[2024-12-17] MEDS: ENOXAPARIN 40 MG/0.4 ML SYRINGE SUBCUT (09:21)
--- NOTE | 2024-12-17 12:00 | PC.NURSE ---
Patient has tpn, iv antibiotics, and ivf infusing. He is tolerating this all well. His l.lower incision is draining alot of ss fluid. Dr. Rojas is aware and not worried about this. NG tube to LIS. BT hypoative. Resting supine with head up.
--- NOTE | 2024-12-17 12:33 | PM.PN.IH.1 ---
Subjective Subjective Date Patient Seen: 12/17/24 Time Patient Seen: 12:33 Interval history: Feeling better today. Had a bowel movement just now. He denies nausea. Exam Vital Signs (past 8 hours): - 12/17/24 08:00 12/17/24 08:17 Pulse Rate 52 L Respiratory Rate 16 Blood Pressure 150/66 H Pulse Oximetry 94 93 Oxygen Delivery Method Nasal Cannula Oxygen Flow Rate 0.5 2 Fraction of Inspired Oxygen 24 SaO2/FiO2 Ratio 395 Oxygen Delivery Method Nasal Cannula Oxygen Flow Rate 2 Const General: No acute distress Objective Labs 12/17/24 04:20 12/17/24 04:20 Labs: Laboratory Results - last 24 hr 12/16/24 12/17/24 15:00 04:20 WBC 15.4 H RBC 3.69 L Hgb 12.1 L Hct 35.8 L MCV 97.2 MCH 32.8 MCHC 33.8 RDW 13.5 Plt Count 269 Total Counted 100 Seg Neutrophils % 84.0 H Band Neutrophils % 3.0 Lymphocytes % (Manual) 6.0 L Monocytes % (Manual) 5.0 Eosinophils % (Manual) 2.0 Neutrophils # (Manual) 32600 H RBC Morphology Normal morphology Sodium 137 Potassium 3.5 Chloride 106 Carbon Dioxide 26 BUN 23 H Creatinine 0.97 Estimated GFR > 60 BUN/Creatinine Ratio 23.7 H Glucose 137 H Calcium 7.8 L Phosphorus 2.7 Magnesium 1.6 Urine Color Yellow Urine Appearance Clear Urine pH 6.0 Ur Specific [place] 1.020 Urine Protein 2+ H Urine Glucose (UA) Negative Urine Ketones Negative Urine Occult Blood 3+ H Urine Nitrate Negative Urine Bilirubin Negative Urine Urobilinogen 0.2 Ur Leukocyte Esterase Negative Urine RBC 10-30/hpf H Urine WBC 0-1/hpf Ur Squamous Epith Cells 0-1 /hpf Urine Bacteria None seen Ur Culture Indicated? Cult not indicated Vol Urine Centrifuged 10ml (spun) [facility] Medical History Hydronephrosis Anemia Bladder incontinence Vision disorder Plantar warts Actinic keratosis (~2003) Allergies (~1989) Plantar fasciitis (~2013) Measles Tinnitus (~2009) History of urinary incontinence (~2018) History of elevated PSA BPH (benign prostatic hyperplasia) (~1999) GERD (gastroesophageal reflux disease) (~2015) Hyperlipidemia LDL goal <100 Hypertension Anxiety Irregular heartbeat Edema of both ankles Surgical History Anesthesia Status post trigger finger release (~2018) History of hernia surgery (~2004) Family History Father Cancer Mother Alzheimer's disease Sister Cancer Grandfather History of heart disease Grandmother Alzheimer's disease Social History household members: spouse Smoking Status: Former smoker Tobacco: How many years used: 30 quit status: quit date established alcohol intake: current substance use type: marijuana Assessment & Plan Assessment and plan (1) Ileus following gastrointestinal surgery: Status: Acute Plan We discussed the possibility of removing the NG tube today given his reassuring bowel function however he wants to avoid the possibility of having to replace it it was too soon. He does not mind having an in another day so we will watch him and see how much comes out. If he is still having bowel function tomorrow we should remove it at that time. Time-Based Coding :: [TOTAL MINUTES] spent with patient and on the chart (including review of chart, obtaining history, exam, reviewing outside data, placing orders, documenting exam and treatment plan, and counseling patient) on [DATE]. 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
[2024-12-17 14:07] VITALS: BP 149/66; PULSE 65; RESP 16; TEMP 36.6; O2SAT 95
--- NOTE | 2024-12-17 14:14 | PT.IIE ---
Current Diagnoses Acute appendicitis with perforation, localized peritonitis, and gangrene, without abscess (12/08/24) Unspecified intestinal obstruction, unspecified as to partial versus complete obstruction (12/08/24) Ileus, unspecified (12/08/24) Other postprocedural complications and disorders of digestive system (12/08/24) Surgery Performed Operation Date: 12/10/24 15:15 Actual Procedures p Laparoscopic Appendectomy - Jarrod Sotelo MD Surgical History (Last Reviewed 12/08/24 @ 16:21 by Finesse Laurent MD) Anesthesia History of hernia surgery (~2003) Status post trigger finger release (~2017) Medical History (Last Reviewed 12/08/24 @ 16:18 by Luli Palm DO) Actinic keratosis (~2003) Allergies (~1989) Anemia Anxiety Bladder incontinence BPH (benign prostatic hyperplasia) (~1999) Edema of both ankles GERD (gastroesophageal reflux disease) (~2015) History of elevated PSA History of urinary incontinence (~2018) Hydronephrosis Hyperlipidemia LDL goal <100 Hypertension Irregular heartbeat Measles Plantar fasciitis (~2013) Plantar warts Tinnitus (~2009) Vision disorder Physical Therapy Inpatient Evaluation/Re-Eval M1 PT/OT-IP Prior Functional Status Start: 12/17/24 08:54 Freq: NEEDED Status: Active Protocol: Document 12/17/24 13:37 MB (Rec: 12/17/24 14:14 MB [id number]) Medical Review Prior Functional Status Medical History Reviewed Yes Diet/Fluid Consistency Regular Communication WNLs Mobility and Gait I, active, golfs Activities of Daily Living and IADL's I, drives, lives with SO Social History Household Members significant other Living Arrangements House Number of Floors (Floors) Two Floors Number of Stairs To Enter/Railing? 3-4 steps without rail to enter, flight of steps with left rail inside, old [facility] and no accessible aspects, per pt Home Environment Standard Height Toilet,Tub/ Shower Employment Status Retired M2 PT-IP Current Condition Start: 12/17/24 08:54 Freq: NEEDED Status: Active Protocol: Document 12/17/24 13:37 MB (Rec: 12/17/24 14:14 MB [id number]) Physical Therapy Current Condition Current Condition Evaluation Date 12/17/24 Treatment Diagnosis POD 6 lap appendectomy, SBO and now NG tube M3 PT-IP Subjective Start: 12/17/24 08:54 Freq: NEEDED Status: Active Protocol: Document 12/17/24 13:37 MB (Rec: 12/17/24 14:14 MB [id number]) Subjective Physical Therapy Visit Type Type Initial Evaluation Visit Start Time 13:37 Visit Stop Time 14:02 Number of TRANSIT PLANNING MANAGER Visits 0 Physical Therapy Visit Comments Patient Comments Pt pleasant and agreeable to PT. Therapy Pain Assessment Pain When Pain Assessed At Rest Pain Present Pain Present Denied Pain M4 PT-IP Mobility and Gait Start: 12/17/24 08:54 Freq: NEEDED Status: Active Protocol: Document 12/17/24 13:37 MB (Rec: 12/17/24 14:14 MB [id number]) PT-Bed Mobility Assessment Rolling Type of Rolling Roll to Left Level of Assist Standby Assistance Supine to Sit Supine to Sit Standby Assistance,Head of Bed Elevated Scooting Scooting to Edge of Bed Standby Assistance PT-Transfer Assessment Sit to and From Stand Sit to and from Stand Contact Guard Assistance,1 Person Assistance,Use of Upper Extremities Equipment Transfer Assistive Device None Orthotic/Prosthetic Devices or Brace: No Transfers Transfer Destination Bed Transfer Technique Left side stepping Transfer Ability Level of Assist Contact Guard Assistance Comments Mobility Comments Did not perform log rolling d/ t HOB increased for NG tube with drainage, did discuss log rolling and protecting abdomen Gait Assessment Gait Gait Assistance Required: Contact Guard Assist Distance (Feet) 1 Able to Maintain Weight Bearing Status Yes During Gait Assistive Devices Assistive Device None Orthotic/Prosthetic Devices or Brace: No Gait Deviations General Gait Pattern Decreased Stride Length,Flexed Trunk,Step-to Gait Factors Limiting Gait Function Factors Limiting Gait Function Decreased Activity Tolerance Comments Gait Comments Multiple IV line right arm and left NG tube limit mobility today PT-Balance Assessment Sitting Balance and Reactions Static Sitting Balance Ability Normal Dynamic Sitting Balance Ability Normal Standing Balance and Reactions Static Standing Balance Ability Good Dynamic Standing Balance Ability Good Device Used CGA M5 PT-IP Objective Assessments Start: 12/17/24 08:54 Freq: NEEDED Status: Active Protocol: Document 12/17/24 13:37 MB (Rec: 12/17/24 14:14 MB [id number]) Orientation Orientation/Cognition Level of Alertness Alert Orientation Name,Age,Birthday,Month,Date, Year,Day of Week,Place, Situation Language Function Ability No Deficits Noted Safety Awareness Understands Safety Issues Memory Description No Deficits Noted Gross Range of Motion Upper Extremity ROM Assessment Bilaterally Impaired Impairments B shoulder flexion mildly limited Lower Extremity ROM Assessment Bilaterally Impaired Impairments B ankle edema and decreased DF and end-range extension Strength Comments Strength Comments MMT deferred given edema, abdominal distention and dressing, functional strength in legs at least 3/5 today Coordination Assessment Gross Coordination Gross Coordination Impaired Other Assessments Other Other Assessments Edema in LEs, abdomen M6 PT-IP Treatment Start: 12/17/24 08:54 Freq: NEEDED Status: Active Protocol: Document 12/17/24 13:37 MB (Rec: 12/17/24 14:14 MB [id number]) Physical Therapy Treatment Exercises Exercises Ankle Pumps Other Treatments Other Treatment Performed LAQs, discussion about abdominal precautions when able to lie flat, not currently d/t NG tube M7 PT-IP Assessment and Plan Start: 12/17/24 08:54 Freq: NEEDED Status: Active Protocol: Document 12/17/24 13:37 MB (Rec: 12/17/24 14:14 MB [id number]) PT Summary Assessment and Plan Potential Rehabilitation Potential Good Status of Condition at Evaluation Evolving Summary Impairments Pain,ROM,Strength,Balance, Coordination,Bed Mobility, Transfers,Gait,Activity Tolerance Progress Towards Goals Slow Progress due to Medical Issues,Slow Progress - Other Assessment Summary Pt is a pleasant gentleman who is POD 6 lap appendectomy, post-op SBO and now with NG tube. Pt and nsg report that pt has been up to toilet and perform hygiene. Limited mobility this afternoon d/t many lines and NG tube with a lot of continuous output. Pt is a little light-headed with sitting up to EOB and may benefit from having orthostatics checked when he is less hooked up as far as lines and leads. Pt is pleasant and communicative about recent events and he mobilizes well given lines. Anticipate d/t home with his supportive SO, possibly HH depending on medical needs and progress to OPPT when appropriate. Goals Bed Mobility Goal Independent Transfer Goal Independent Gait Goal Independent Gait Distance 100 Other Goals Pt will ascend and descend 3-4 steps without rail and with LRAD and mod I to allow safe home entrance. Gait with or without LRAD for gait goal Days to Meet Goals 5 Frequency of Treatment Frequency Of Treatment Once a Day Other frequency x1 Treatment Plan Physical Therapy Treatment Plan Bed Mobility Training,Transfer Training,Gait Training, Therapeutic Exercise,Balance Retraining,Post Op Education, Discharge Planning,Hot or Cold Pack,Neuromuscular Re-ed, Coordination Retraining,Manual Therapy Other Recommendations and Next Treatment When NG tube d/cd, log rolling Focus , increase gait and try LRAD, check orthostatics Precautions Abdominal Surgery Precautions Log Roll,Lifting Restrictions, Gait Belt above Incisional Area Recommendations To Nursing Amount of Assist Needed 1 Person Assist Discharge Recommendations PT Discharge Recommendations Home with / Assist Available,Home Health, Outpatient PT Other Discharge Recommendations HH vs OPPT, may need LRAD Transportation Needs at Discharge Private Vehicle
--- NOTE | 2024-12-17 15:31 | P.PN_ITS ---
Subjective Subjective Date Patient Seen: 12/17/24 Time Patient Seen: 09:55 Interval history: Patient overall feels well today. Abdominal pain has continued to improve. He has began to pass some liquid stools and small amounts of flatus. NG tube output remains elevated at greater than 2 L. Exam Vital Signs (past 8 hours): - 12/17/24 08:00 12/17/24 08:17 12/17/24 14:07 Temperature 97.8 F Pulse Rate 52 L 65 Respiratory Rate 16 16 Blood Pressure 150/66 H 149/66 H Pulse Oximetry 94 93 95 Oxygen Delivery Method Nasal Cannula Oxygen Flow Rate 0.5 2 0 Fraction of Inspired Oxygen 24 SaO2/FiO2 Ratio 395 Oxygen Delivery Method Nasal Cannula Oxygen Flow Rate 0 Const General: cooperative, comfortable and well developed Nutritional Appearance: well nourished Orientation: alert, awake and oriented x3 HENMT Head: normal to inspection and normocephalic Nose: external nose normal and other (NG tube in place with bilious output) Eyes General: appearance normal, both eyes and all related structures Neck Neck: normal visual inspection Chest Chest: normal inspection of the chest Resp Effort & Inspection: normal respiratory effort GI Inspection: normal to inspection, distended and incision (Left lower quadrant incision draining serous fluid) Palpation: soft, No guarding and No tender Percussion: tympanic to percussion Back/Spine/Pelvis Back: normal to inspection Skin General: no rashes or lesions noted Wounds: wounds noted (Left lower quadrant incision draining serous fluid) Neuro General: patient alert, patient awake and patient oriented x3 Cognition: normal cognition Speech: speech normal Extrem General: pedal edema Right lower extremity: edema Left lower extremity: edema Psych Appearance: grossly normal Mental Status: mental status grossly normal Speech and Movement: speech and movement normal Objective Labs 12/17/24 04:20 12/17/24 04:20 Labs: Laboratory Results - last 24 hr 12/16/24 12/17/24 15:00 04:20 WBC 15.4 H RBC 3.69 L Hgb 12.1 L Hct 35.8 L MCV 97.2 MCH 32.8 MCHC 33.8 RDW 13.5 Plt Count 269 Total Counted 100 Seg Neutrophils % 84.0 H Band Neutrophils % 3.0 Lymphocytes % (Manual) 6.0 L Monocytes % (Manual) 5.0 Eosinophils % (Manual) 2.0 Neutrophils # (Manual) 54906 H RBC Morphology Normal morphology Sodium 137 Potassium 3.5 Chloride 106 Carbon Dioxide 26 BUN 23 H Creatinine 0.97 Estimated GFR > 60 BUN/Creatinine Ratio 23.7 H Glucose 137 H Calcium 7.8 L Phosphorus 2.7 Magnesium 1.6 Urine Color Yellow Urine Appearance Clear Urine pH 6.0 Ur Specific [place] 1.020 Urine Protein 2+ H Urine Glucose (UA) Negative Urine Ketones Negative Urine Occult Blood 3+ H Urine Nitrate Negative Urine Bilirubin Negative Urine Urobilinogen 0.2 Ur Leukocyte Esterase Negative Urine RBC 10-30/hpf H Urine WBC 0-1/hpf Ur Squamous Epith Cells 0-1 /hpf Urine Bacteria None seen Ur Culture Indicated? Cult not indicated Vol Urine Centrifuged 10ml (spun) PFS Medical History Hydronephrosis Anemia Bladder incontinence Vision disorder Plantar warts Actinic keratosis (~2003) Allergies (~1989) Plantar fasciitis (~2013) Measles Tinnitus (~2009) History of urinary incontinence (~2018) History of elevated PSA BPH (benign prostatic hyperplasia) (~1999) GERD (gastroesophageal reflux disease) (~2015) Hyperlipidemia LDL goal <100 Hypertension Anxiety Irregular heartbeat Edema of both ankles Surgical History Anesthesia Status post trigger finger release (~2017) History of hernia surgery (~2003) Family History Father Cancer Mother Alzheimer's disease Sister Cancer Grandfather History of heart disease Grandmother Alzheimer's disease Social History household members: significant other Smoking Status: Former smoker Tobacco: How many years used: 30 quit status: quit date established alcohol intake: current substance use type: marijuana Assessment & Plan Assessment and plan (1) Small bowel obstruction: Status: Acute (2) Ileus following gastrointestinal surgery: Status: Acute (3) Acute appendicitis with perforation and localized peritonitis: Qualifiers: Appendicitis abscess presence: without abscess Appendicitis gangrene presence: unspecified whether gangrene present Qualified Code(s): K35.32 - Acute appendicitis with perforation, localized peritonitis, and gangrene, without abscess Status: Acute (4) S/P laparoscopic appendectomy: Status: Acute Assessment & Plan narrative: This is a 79 year old M who is POD #7 s/p laparoscopic appendectomy for acute perforated appendicitis who has developed a post operative small bowel obstruction - NPO, IVF, NG tube insertion. Continue PICC and TPN - Lasix IV 40 mg x 1 - no abscess identified on CT scan today. We will continue Zosyn for additional 3 days then discontinue - Replace electrolytes PRN - Minimize narcotics - Leukocytosis: Stable today. UA neg for UTI. We will continue to monitor as patient is still at risk of intra-abdominal abscess - Continue inpatient care. Will follow along. Please call with questions or concerns Time-Based Coding :: 20 minutes spent with patient and on the chart (including review of chart, obtaining history, exam, reviewing outside data, placing orders, documenting exam and treatment plan, and counseling patient) on 12/17/2024 [employer] Travel Attendants Document charge(s): Yes Charge Codes Subsequent inpatient/observation care: [id number]
[2024-12-17] MEDS: FUROSEMIDE 40 MG/4 ML VIAL IV (15:55)
[2024-12-17] MEDS: AA 5 %/CALCIUM/LYTES/DEXT 20 % 1,500 ML with MULTIVITAMIN 10 ML, TRACE ELEMENTS 1 ML 62.958 ML IV (18:04)
[2024-12-17] MEDS: FAT EMULSIONS 50 GM/250 ML EMULSION IV (18:04)
[2024-12-17 20:00] VITALS: BP 131/67; PULSE 62; RESP 18; O2SAT 93
[2024-12-18 02:00] VITALS: BP 146/71; PULSE 59; RESP 17; O2SAT 94
[2024-12-18 04:53] LABS: Add Manual Diff / Slide Review NO; Basophils Absolute Auto 200 /uL (0-100); Basophils Percent Auto 1.1 % (0-2); Eosinophils Absolute Auto 500 /uL (0-450); Eosinophils Percent Auto 3.1 % (2-4); Hemoglobin 11.9 g/dL (13.5-17.5); Lymphocytes Absolute Auto 1400 /uL (1100-4500); Lymphocytes Percent Auto 9.2 % (25-40); Mean Corpuscular Hemoglobin 32.7 PG (26-34); Mean Corpuscular Volume 96.4 fL (80-100); Monocytes Absolute Auto 700 /uL (0-900); Monocytes Percent Auto 4.4 % (3-14); Neutrophils Absolute Auto 12400 /uL (1500-7000); Neutrophils Percent Auto 82.2 % (50-75); Platelet Count 297 X10^3/uL (150-400); Red Blood Cell Count 3.63 X10^6/uL (4.5-5.9); Red Cell Distribution Width 13.3 % (11.6-14.8); White Blood Cell Count 15.1 X10^3/uL (4.5-11.0)
[2024-12-18] MEDS: ENOXAPARIN 40 MG/0.4 ML SYRINGE SUBCUT (10:20)
--- NOTE | 2024-12-18 10:42 | CM.DPNOTE ---
DCP note KILN BURNER HELPER reviewed EMR per nursing staff in morning rounds, plan is to pull NG tube today. still on TPN. likely will be here for a few more days. per PT, rec home with assistance vs HH. will f/u with pt when he gets closer to dc if he is interested in HH. no new CM needs identified at this time. Coordinating with TCM group for new patient appointment utilizing pt preference for afternoon time, pending response. Plan: Anticipating dc home with Sig Other when medically cleared. CM Team will continue to follow for coordination of discharge plans LAWANDA [place]
--- NOTE | 2024-12-18 11:53 | PC.NURSE ---
Patient is alert and oriented x4, he denies pain. L.lower incision is wheeping but much less, dressing cdi. He has an NG tube to LIS that is putting out dark,bile in canister. His lap sites all are cdi and patient is just resting now. He is also on TPN, ivf, an iv antibiotic
[2024-12-18 12:00] VITALS: BP 133/77; PULSE 77; RESP 15; TEMP 36.1; O2SAT 97
[2024-12-18 13:16] LABS: Blood Urea Nitrogen 22 mg/dL (9-20); Calcium 7.6 mg/dL (8.4-10.2); Carbon Dioxide 27 mmol/L (22-32); Chloride 102 mmol/L (98-107); Estimated Glomerular Filt Rate > 60 mL/min (>60); Glucose 130 mg/dL (80-110); HEMOLYSIS < 15 (0-50); Magnesium 1.6 mg/dL (1.6-2.3); Potassium 3.6 mmol/L (3.4-5.1); Sodium 134 mmol/L (137-145)
--- NOTE | 2024-12-18 14:50 | P.PN_ITS ---
Subjective Subjective Date Patient Seen: 12/18/24 Time Patient Seen: 14:50 Interval history: Art is feeling about the same today. He has had bowel function. He did not sleep well last night and did not fall asleep until 7:00 a.m. this morning so he has been sleeping and lying in bed most of today. Exam Vital Signs (past 8 hours): - 12/18/24 12:00 Temperature 97.0 F L Pulse Rate 77 Respiratory Rate 15 Blood Pressure 133/77 Pulse Oximetry 97 Fraction of Inspired Oxygen 24 SaO2/FiO2 Ratio 395 Oxygen Delivery Method Room Air Oxygen Flow Rate 0 Narrative Exam Narrative: Abdomen is soft, distended Objective Labs 12/18/24 04:20 12/18/24 12:56 Labs: Laboratory Results - last 24 hr 12/18/24 12/18/24 04:20 12:56 WBC 15.1 H RBC 3.63 L Hgb 11.9 L Hct 35.0 L MCV 96.4 MCH 32.7 MCHC 34.0 RDW 13.3 Plt Count 297 Neut % (Auto) 82.2 H Lymph % (Auto) 9.2 L [place] % (Auto) 4.4 Eos % (Auto) 3.1 Baso % (Auto) 1.1 Neut # (Auto) 97436 H Lymph # (Auto) 1400 [place] # (Auto) 700 Eos # (Auto) 500 H Baso # (Auto) 200 H Sodium 134 L Potassium 3.6 Chloride 102 Carbon Dioxide 27 BUN 22 H Creatinine 1.10 Estimated GFR > 60 BUN/Creatinine Ratio 20.0 Glucose 130 H Calcium 7.6 L Phosphorus 3.0 Magnesium 1.6 PFSH Medical History Hydronephrosis Anemia Bladder incontinence Vision disorder Plantar warts Actinic keratosis (~2003) Allergies (~1989) Plantar fasciitis (~2013) Measles Tinnitus (~2009) History of urinary incontinence (~2018) History of elevated PSA BPH (benign prostatic hyperplasia) (~1999) GERD (gastroesophageal reflux disease) (~2015) Hyperlipidemia LDL goal <100 Hypertension Anxiety Irregular heartbeat Edema of both ankles Surgical History Anesthesia Status post trigger finger release (~2017) History of hernia surgery (~2003) Family History Father Cancer Mother Alzheimer's disease Sister Cancer Grandfather History of heart disease Grandmother Alzheimer's disease Social History household members: significant other Smoking Status: Former smoker Tobacco: How many years used: 30 quit status: quit date established alcohol intake: current substance use type: marijuana Assessment & Plan Post-op Postoperative Procedures: Procedures Operation Date: 12/10/24 15:15 Actual Procedure Side Surgeon p Laparoscopic Appendectomy Jarrod Sotelo MD Postoperative status narrative: DC NG tube Sips of clears We can let him have his normal sleep medications tonight.
--- NOTE | 2024-12-18 15:55 | PT.IPTN ---
Current Diagnoses Acute appendicitis with perforation, localized peritonitis, and gangrene, without abscess (12/08/24) Unspecified intestinal obstruction, unspecified as to partial versus complete obstruction (12/08/24) Ileus, unspecified (12/08/24) Other postprocedural complications and disorders of digestive system (12/08/24) Acquired absence of other specified parts of digestive tract (12/08/24) Surgery Performed Operation Date: 12/10/24 15:15 Actual Procedures p Laparoscopic Appendectomy - Jarrod Sotelo MD Physical Therapy Treatment Note M2 PT-IP Current Condition Start: 12/17/24 08:54 Freq: NEEDED Status: Active Protocol: Document 12/17/24 13:37 MB (Rec: 12/17/24 14:14 MB [id number]) Physical Therapy Current Condition Current Condition Evaluation Date 12/17/24 Treatment Diagnosis POD 6 lap appendectomy, SBO and now NG tube M3 PT-IP Subjective Start: 12/17/24 08:54 Freq: NEEDED Status: Active Protocol: Document 12/18/24 15:55 AB (Rec: 12/18/24 16:53 AB [id number]) Subjective Physical Therapy Visit Type Type Treatment Note Visit Start Time 15:55 Visit Stop Time 16:40 Number of TAVERN CAR ATTENDANT Visits 0 Physical Therapy Visit Comments Patient Comments agreeable to do PT M4 PT-IP Mobility and Gait Start: 12/17/24 08:54 Freq: NEEDED Status: Active Protocol: Document 12/18/24 15:55 AB (Rec: 12/18/24 16:53 AB [id number]) PT-Bed Mobility Assessment Rolling Type of Rolling Log Rolling Level of Assist Minimal Assistance Supine to Sit Supine to Sit Minimal Assistance PT-Transfer Assessment Sit to and From Stand Sit to and from Stand Contact Guard Assistance,1 Person Assistance,Use of Upper Extremities Equipment Transfer Assistive Device Gait Belt,Front Wheeled Walker Orthotic/Prosthetic Devices or Brace: No Transfers Transfer Destination Chair Transfer Technique ambulated Transfer Ability Level of Assist Contact Guard Assistance,1 Person Assistance,Use of Upper Extremities Comments Mobility Comments checked on pt and stated that NG tube is about to be removed and prefers to do PT after removal. Checked back on pt after ~ 45 min. pt agreed to do PT. educated pt on abdominal precautions and log roll bed mobility. BP: 144/68 . pt completed supine to sit log roll min A and max cues. able to sit on EOB SBA. BP checked: 147/73. no c/o dizziness. sit to stand CGA and ambulated in room using FWW ~ 30 ft CGA. pt with drainage on incision and instructed to walk back to the chair. pt sat on the chair. informed nurse and nurse took over pt's care. spouse arrived during PT session. informed spouse to borrow a FWW for pt to use. Gait Assessment Gait Gait Assistance Required: Contact Guard Assist Distance (Feet) 30 Able to Maintain Weight Bearing Status Yes During Gait Assistive Devices Assistive Device Gait Belt,Front Wheeled Walker Orthotic/Prosthetic Devices or Brace: No Gait Deviations General Gait Pattern Decreased Stride Length, Decreased Feet Clearance Factors Limiting Gait Function Factors Limiting Gait Function Decreased Activity Tolerance, Decreased Strength,Difficulty Following Directions,Limited Range of Motion,Poor Balance, Poor Safety Awareness M5 PT-IP Objective Assessments Start: 12/17/24 08:54 Freq: NEEDED Status: Active Protocol: Document 12/17/24 13:37 MB (Rec: 12/17/24 14:14 MB [id number]) Orientation Orientation/Cognition Level of Alertness Alert Orientation Name,Age,Birthday,Month,Date, Year,Day of Week,Place, Situation Language Function Ability No Deficits Noted Safety Awareness Understands Safety Issues Memory Description No Deficits Noted Gross Range of Motion Upper Extremity ROM Assessment Bilaterally Impaired Impairments B shoulder flexion mildly limited Lower Extremity ROM Assessment Bilaterally Impaired Impairments B ankle edema and decreased DF and end-range extension Strength Comments Strength Comments MMT deferred given edema, abdominal distention and dressing, functional strength in legs at least 3/5 today Coordination Assessment Gross Coordination Gross Coordination Impaired Other Assessments Other Other Assessments Edema in LEs, abdomen M6 PT-IP Treatment Start: 12/17/24 08:54 Freq: NEEDED Status: Active Protocol: Document 12/18/24 15:55 AB (Rec: 12/18/24 16:53 AB [id number]) Physical Therapy Treatment Education Education Provided Precautions,Safety M7 PT-IP Assessment and Plan Start: 12/17/24 08:54 Freq: NEEDED Status: Active Protocol: Document 12/18/24 15:55 AB (Rec: 12/18/24 16:53 AB [id number]) PT Summary Assessment and Plan Potential Rehabilitation Potential Good Summary Impairments Pain,ROM,Strength,Balance, Coordination,Cognition,Bed Mobility,Transfers,Gait, Activity Tolerance Progress Towards Goals Slow Progress due to Medical Issues,Slow Progress due to Activity Tolerance Assessment Summary pt requiring min A for log roll bed mobility and max cues , CGA for transfers and ambulation using fWW. will continue to do assess pt's progress. pt plans to go home and spouse to assist. Goals Bed Mobility Goal Independent Transfer Goal Independent Gait Goal Independent Gait Distance 100 Other Goals Pt will ascend and descend 3-4 steps without rail and with LRAD and mod I to allow safe home entrance. Gait with or without LRAD for gait goal Days to Meet Goals 5 Frequency of Treatment Frequency Of Treatment Once a Day Treatment Plan Physical Therapy Treatment Plan Bed Mobility Training,Transfer Training,Gait Training, Therapeutic Exercise,Balance Retraining,Post Op Education, Discharge Planning,Hot or Cold Pack,Neuromuscular Re-ed, Coordination Retraining,Manual Therapy Precautions Abdominal Surgery Precautions Log Roll,Lifting Restrictions, Gait Belt above Incisional Area Recommendations To Nursing Amount of Assist Needed 1 Person Assist Discharge Recommendations PT Discharge Recommendations Home with 09/05 Assist Available,Home Health, Outpatient PT Equipment Needed for Home Before FWW Discharge Transportation Needs at Discharge Private Vehicle
--- NOTE | 2024-12-18 19:13 | PC.NURSE ---
The pt is becoming more alive, with the NG tube discontinued today and TPN discontinued he says he feels alot better, the pt walked the chacko [id number] with RN and was able to use the toilet after walking the chacko, the pt ate jello and broth and said he may want more broth later this evening, appitite is slowly returning and denied any nausea or pain at this time, Around 1900 the RN replaced the abd dressing for the 3rd time this shift, it was saturated with clearish fluids, light yellow. The provider was notified this afternoon about the drainage from the lower left lap site, no pain or redness, only dripping clear fluids and no new orders given other than continue to replace the abd dressing. The pt denied pain and is now lying in bed.
[2024-12-18 20:00] VITALS: BP 133/72; PULSE 64; RESP 18; TEMP 36.2; O2SAT 97
[2024-12-18] MEDS: CALCIUM CARBONATE 500 MG TAB 1000 MG PO (20:46)
[2024-12-18] MEDS: hydrOXYzine HCL 25 MG TABLET PO (20:47)
[2024-12-18] MEDS: DEXTROSE 5%-0.45NS W/KCL 20MEQ 1,000 ML 60 MEQ IV (21:01)
[2024-12-19 07:53] LABS: Hematocrit 32.4 % (41-53); Hemoglobin 11.2 g/dL (13.5-17.5); Mean Corpuscular HGB Conc 34.6 % (30-36); Mean Corpuscular Hemoglobin 33.2 PG (26-34); Mean Corpuscular Volume 95.9 fL (80-100); Platelet Count 291 X10^3/uL (150-400); Red Blood Cell Count 3.38 X10^6/uL (4.5-5.9); Red Cell Distribution Width 13.6 % (11.6-14.8); White Blood Cell Count 16.1 X10^3/uL (4.5-11.0)
[2024-12-19 08:34] LABS: Neutrophils Absolute Manual 12558 /uL (3000-5900); RBC Morphology Normal Morphology; Total Cells Counted 100
[2024-12-19 09:00] VITALS: BP 145/70; PULSE 62; RESP 16; O2SAT 92
--- NOTE | 2024-12-19 09:19 | PM.PNPO.1 ---
Subjective Subjective Date Patient Seen: 12/19/24 Time Patient Seen: 09:19 Interval history: Art is feeling better today. He has continued to have bowel movements. He has tolerated some clear liquids. Exam Vital Signs (past 8 hours): Fraction of Inspired Oxygen 24 SaO2/FiO2 Ratio 395 Oxygen Delivery Method Room Air Oxygen Flow Rate 0 Const General: No acute distress Objective Labs 12/19/24 07:10 12/18/24 12:56 Labs: Laboratory Results - last 24 hr 12/18/24 12/19/24 12:56 07:10 WBC 16.1 H RBC 3.38 L Hgb 11.2 L Hct 32.4 L MCV 95.9 MCH 33.2 MCHC 34.6 RDW 13.6 Plt Count 291 Total Counted 100 Seg Neutrophils % 74.0 H Band Neutrophils % 4.0 Lymphocytes % (Manual) 9.0 L Monocytes % (Manual) 7.0 Eosinophils % (Manual) 6.0 H Neutrophils # (Manual) 71037 H RBC Morphology Normal morphology Sodium 134 L Potassium 3.6 Chloride 102 Carbon Dioxide 27 BUN 22 H Creatinine 1.10 Estimated GFR > 60 BUN/Creatinine Ratio 20.0 Glucose 130 H Calcium 7.6 L Phosphorus 3.0 Magnesium 1.6 PFSH Medical History Hydronephrosis Anemia Bladder incontinence Vision disorder Plantar warts Actinic keratosis (~2003) Allergies (~1989) Plantar fasciitis (~2013) Measles Tinnitus (~2009) History of urinary incontinence (~2018) History of elevated PSA BPH (benign prostatic hyperplasia) (~1999) GERD (gastroesophageal reflux disease) (~2015) Hyperlipidemia LDL goal <100 Hypertension Anxiety Irregular heartbeat Edema of both ankles Surgical History Anesthesia Status post trigger finger release (~2017) History of hernia surgery (~2003) Family History Father Cancer Mother Alzheimer's disease Sister Cancer Grandfather History of heart disease Grandmother Alzheimer's disease Social History household members: significant other Smoking Status: Former smoker Tobacco: How many years used: 30 quit status: quit date established alcohol intake: current substance use type: marijuana Assessment & Plan Post-op Postoperative Procedures: Procedures Operation Date: 12/10/24 15:15 Actual Procedure Side Surgeon p Laparoscopic Appendectomy Jarrod Sotelo MD Postoperative status narrative: Ileus seems to be slowly resolving Postoperative plan narrative: Trial of regular diet for lunch
[2024-12-19] MEDS: ENOXAPARIN 40 MG/0.4 ML SYRINGE SUBCUT (09:38)
--- NOTE | 2024-12-19 10:01 | DIET.PN1 ---
Dietary Progress Note Assessment: f/u Met with pt at bedside, improving appetite, tolerated clears. TPN was d/c by surgery and diet advanced to regular for lunch today. Will monitor diet tolerance. Ht: 182.88 cm Wt: 82 kg BMI: 24.7 Last BM: 12/19/24 (12/19/24 06:00) MNA: Baltazar Score: 19 Diet: 12/18/24 Dinner Clear Liquid Diet Diet Modifications: 12/19/24 Lunch Regular [General (Regular) Diet] Diet Modifications: Food Texture: Level 7 - Regular Liquid Consistency: Level 0 - Thin Labs: RBC 3.38 X10^6/uL (4.5-5.9) L 12/19/24 07:10 Hgb 11.2 g/dL (13.5-17.5) L 12/19/24 07:10 Hct 32.4 % (41-53) L 12/19/24 07:10 Creatinine 1.10 mg/dL (0.66-1.25) 12/18/24 12:56 Lactate 1.0 mmol/L (0.7-2.1) 12/08/24 14:30 Electronically Signed by: Vanessa Chavez 12/19/24 10:01 Clinical Dietitian [address] [id number]
--- NOTE | 2024-12-19 11:00 | PT.IPTN ---
Current Diagnoses Acute appendicitis with perforation, localized peritonitis, and gangrene, without abscess (12/08/24) Unspecified intestinal obstruction, unspecified as to partial versus complete obstruction (12/08/24) Ileus, unspecified (12/08/24) Other postprocedural complications and disorders of digestive system (12/08/24) Acquired absence of other specified parts of digestive tract (12/08/24) Surgery Performed Operation Date: 12/10/24 15:15 Actual Procedures p Laparoscopic Appendectomy - Jarrod Sotelo MD Physical Therapy Treatment Note M2 PT-IP Current Condition Start: 12/17/24 08:54 Freq: NEEDED Status: Active Protocol: Document 12/17/24 13:37 MB (Rec: 12/17/24 14:14 MB [id number]) Physical Therapy Current Condition Current Condition Evaluation Date 12/17/24 Treatment Diagnosis POD 6 lap appendectomy, SBO and now NG tube M3 PT-IP Subjective Start: 12/17/24 08:54 Freq: NEEDED Status: Active Protocol: Document 12/19/24 11:00 AB (Rec: 12/19/24 13:22 AB [id number]) Subjective Physical Therapy Visit Type Type Treatment Note Visit Start Time 11:00 Visit Stop Time 11:20 Number of ELECTRIC CUTTER OPERATOR Visits 0 Physical Therapy Visit Comments Patient Comments agreeable to do PT M4 PT-IP Mobility and Gait Start: 12/17/24 08:54 Freq: NEEDED Status: Active Protocol: Document 12/19/24 11:00 AB (Rec: 12/19/24 13:22 AB [id number]) PT-Transfer Assessment Sit to and From Stand Sit to and from Stand Minimal Assistance,1 Person Assistance Equipment Transfer Assistive Device Gait Belt,Front Wheeled Walker Orthotic/Prosthetic Devices or Brace: No Comments Mobility Comments pt sitting on the chair and agreeable to do PT. BP: 133/72 . completed sit to stand min A and cues and ambulated in the hallway using fWW CGA and cues. slow paced gait with standing rest breaks. towards end fo ambulation, pt stated that his legs feel wet. pt sat on chair. some drainage on incision. nurse informed. Left pt with nurse and NAC for dressing change. Gait Assessment Gait Gait Assistance Required: Contact Guard Assist Distance (Feet) 125 Able to Maintain Weight Bearing Status Yes During Gait Assistive Devices Assistive Device Gait Belt,Front Wheeled Walker Orthotic/Prosthetic Devices or Brace: No Gait Deviations General Gait Pattern Decreased Stride Length, Decreased Feet Clearance Factors Limiting Gait Function Factors Limiting Gait Function Decreased Activity Tolerance, Decreased Strength,Limited Range of Motion,Pain,Poor Balance,Poor Safety Awareness M5 PT-IP Objective Assessments Start: 12/17/24 08:54 Freq: NEEDED Status: Active Protocol: Document 12/17/24 13:37 MB (Rec: 12/17/24 14:14 MB [id number]) Orientation Orientation/Cognition Level of Alertness Alert Orientation Name,Age,Birthday,Month,Date, Year,Day of Week,Place, Situation Language Function Ability No Deficits Noted Safety Awareness Understands Safety Issues Memory Description No Deficits Noted Gross Range of Motion Upper Extremity ROM Assessment Bilaterally Impaired Impairments B shoulder flexion mildly limited Lower Extremity ROM Assessment Bilaterally Impaired Impairments B ankle edema and decreased DF and end-range extension Strength Comments Strength Comments MMT deferred given edema, abdominal distention and dressing, functional strength in legs at least 3/5 today Coordination Assessment Gross Coordination Gross Coordination Impaired Other Assessments Other Other Assessments Edema in LEs, abdomen M6 PT-IP Treatment Start: 12/17/24 08:54 Freq: NEEDED Status: Active Protocol: Document 12/19/24 11:00 AB (Rec: 12/19/24 13:22 AB [id number]) Physical Therapy Treatment Education Education Provided Safety M7 PT-IP Assessment and Plan Start: 12/17/24 08:54 Freq: NEEDED Status: Active Protocol: Document 12/19/24 11:00 AB (Rec: 12/19/24 13:22 AB [id number]) PT Summary Assessment and Plan Potential Rehabilitation Potential Good Summary Impairments Pain,ROM,Strength,Balance, Cognition,Bed Mobility, Transfers,Gait,Activity Tolerance Progress Towards Goals Slow Progress due to Medical Issues Assessment Summary pt progresssing slowly with mobility but continues to present with decrease activity tolerance. pt requires min A for sit to stand and CGA for ambulation using FWW. pt plans to go home and spouse to assist him. will continue to assess progress. Goals Bed Mobility Goal Independent Transfer Goal Independent Gait Goal Independent Gait Distance 100 Other Goals Pt will ascend and descend 3-4 steps without rail and with LRAD and mod I to allow safe home entrance. Gait with or without LRAD for gait goal Days to Meet Goals 5 Frequency of Treatment Frequency Of Treatment Once a Day Treatment Plan Physical Therapy Treatment Plan Bed Mobility Training,Transfer Training,Gait Training, Therapeutic Exercise,Balance Retraining,Post Op Education, Discharge Planning,Hot or Cold Pack,Neuromuscular Re-ed, Coordination Retraining,Manual Therapy Precautions Abdominal Surgery Precautions Log Roll,Lifting Restrictions, Gait Belt above Incisional Area Recommendations To Nursing Amount of Assist Needed 1 Person Assist Discharge Recommendations PT Discharge Recommendations Home with 24/7 Assist Available,Home Health, Outpatient PT Equipment Needed for Home Before FWW Discharge Transportation Needs at Discharge Private Vehicle - PT assist CGA to min Ax1
[2024-12-19 12:00] VITALS: BP 136/65; PULSE 78; RESP 18; TEMP 36.4; O2SAT 95
[2024-12-19 18:00] VITALS: BP 138/63; PULSE 67; RESP 17; O2SAT 97
[2024-12-19 20:00] VITALS: BP 131/68; PULSE 62; RESP 18; TEMP 36.2; O2SAT 98
[2024-12-19] MEDS: MELATONIN 3 MG TABLET PO (21:32)
[2024-12-20 06:06] LABS: Hematocrit 32.5 % (41-53); Hemoglobin 11.2 g/dL (13.5-17.5); Mean Corpuscular HGB Conc 34.4 % (30-36); Mean Corpuscular Hemoglobin 32.9 PG (26-34); Mean Corpuscular Volume 95.7 fL (80-100); Platelet Count 314 X10^3/uL (150-400); Red Cell Distribution Width 13.2 % (11.6-14.8); White Blood Cell Count 16.8 X10^3/uL (4.5-11.0)
[2024-12-20 06:44] LABS: Neutrophils Absolute Manual 13440 /uL (3000-5900); RBC Morphology Normal Morphology; Total Cells Counted 100
[2024-12-20 09:02] VITALS: BP 134/66; PULSE 70; RESP 17; O2SAT 96
[2024-12-20] MEDS: ENOXAPARIN 40 MG/0.4 ML SYRINGE SUBCUT (09:04)
--- NOTE | 2024-12-20 09:45 | PT.IPTN ---
Current Diagnoses Acute appendicitis with perforation, localized peritonitis, and gangrene, without abscess (12/08/24) Unspecified intestinal obstruction, unspecified as to partial versus complete obstruction (12/08/24) Ileus, unspecified (12/08/24) Other postprocedural complications and disorders of digestive system (12/08/24) Acquired absence of other specified parts of digestive tract (12/08/24) Surgery Performed Operation Date: 12/10/24 15:15 Actual Procedures p Laparoscopic Appendectomy - Jarrod Sotelo MD Physical Therapy Treatment Note M2 PT-IP Current Condition Start: 12/17/24 08:54 Freq: NEEDED Status: Active Protocol: Document 12/20/24 09:22 SP (Rec: 12/20/24 10:49 SP [id number]) Physical Therapy Current Condition Current Condition Evaluation Date 12/17/24 Treatment Diagnosis POD 6 lap appendectomy, SBO and now NG tube M3 PT-IP Subjective Start: 12/17/24 08:54 Freq: NEEDED Status: Active Protocol: Document 12/20/24 09:22 SP (Rec: 12/20/24 10:49 SP [id number]) Subjective Physical Therapy Visit Type Type Treatment Note Visit Start Time 09:22 Visit Stop Time 09:45 Number of CROP NUTRITION SCIENTIST Visits 1 Physical Therapy Visit Comments Patient Comments agreeable to do PT M4 PT-IP Mobility and Gait Start: 12/17/24 08:54 Freq: NEEDED Status: Active Protocol: Document 12/20/24 09:22 SP (Rec: 12/20/24 10:49 SP [id number]) PT-Transfer Assessment Sit to and From Stand Sit to and from Stand Minimal Assistance,1 Person Assistance,Use of Upper Extremities Equipment Transfer Assistive Device Gait Belt,Front Wheeled Walker Orthotic/Prosthetic Devices or Brace: No Transfers Transfer Destination Chair,Wheelchair Transfer Technique ambulated /c FWW Transfer Ability Level of Assist Contact Guard Assistance,1 Person Assistance,Use of Upper Extremities Comments Mobility Comments Vitals seated LUE: 133/58 HR 66 SaO2 96 % RA, standing 141/ 69 Hr 77, standing after mobility 149/71 HR 78 SaO2 83% on RA, cues breath returned to 93% on RA with reports slightly light headed after return walk back to room. STS from chair 5%A cued push from chair. Gait to wc in hallway / c FWW slight trunk sways no LOB. wheeled downt to stairs. Completed 2 platform steps ONCOLOGY NAVIGATOR Min A for trunk stability due to tiring weakness, 9 stairs L HR CGA at gait belt, gait back to room approx 120 ft / cFWW receiprocal stepping slight trunks sways but no LOB , slight increase breath rate noted, cues for slow breath and pacing, w/c follow didn't need to sit. REturned to chair with call light and all needs in reach. Pt reports slight light headed and feeling very weak. is acquiring FWW for home use tomorrow. Welcomed to use HHPT at [place]. Recommended SPC and ONCOLOGY NAVIGATOR for 2 step mgt in home, with pt understanding. Gait Assessment Gait Gait Assistance Required: Contact Guard Assist,1 Person Assist Distance (Feet) 100 Able to Maintain Weight Bearing Status Yes During Gait Assistive Devices Assistive Device Gait Belt,Front Wheeled Walker Orthotic/Prosthetic Devices or Brace: No Gait Deviations General Gait Pattern Decreased Stride Length, Decreased Feet Clearance Factors Limiting Gait Function Factors Limiting Gait Function Decreased Activity Tolerance, Decreased Strength,Pain,Poor Balance,Poor Safety Awareness, Respiratory Distress Comments Gait Comments see mobility comments Stair Climbing Assessment Evaluation Level of Assist On Stairs Contact Guard Assistance, Minimal Assistance,1 Person Assistance Devices Stair Climbing Assistive Devices None,Left Railing Technique/Endurance Stair Climbing Direction Ascend and Descend Stair Climbing Technique Step to Step Number of Steps Climbed 3 Stair Climbing Set # Repetitions (reps) 3 Comments Stair Climbing Comments 2 PF step Min A, 9 stairs L HR CGA see mobility comments. M5 PT-IP Objective Assessments Start: 12/17/24 08:54 Freq: NEEDED Status: Active Protocol: Document 12/17/24 13:37 MB (Rec: 12/17/24 14:14 MB [id number]) Orientation Orientation/Cognition Level of Alertness Alert Orientation Name,Age,Birthday,Month,Date, Year,Day of Week,Place, Situation Language Function Ability No Deficits Noted Safety Awareness Understands Safety Issues Memory Description No Deficits Noted Gross Range of Motion Upper Extremity ROM Assessment Bilaterally Impaired Impairments B shoulder flexion mildly limited Lower Extremity ROM Assessment Bilaterally Impaired Impairments B ankle edema and decreased DF and end-range extension Strength Comments Strength Comments MMT deferred given edema, abdominal distention and dressing, functional strength in legs at least 3/5 today Coordination Assessment Gross Coordination Gross Coordination Impaired Other Assessments Other Other Assessments Edema in LEs, abdomen M6 PT-IP Treatment Start: 12/17/24 08:54 Freq: NEEDED Status: Active Protocol: Document 12/20/24 09:22 SP (Rec: 12/20/24 10:49 SP [id number]) Physical Therapy Treatment Education Education Provided Safety M7 PT-IP Assessment and Plan Start: 12/17/24 08:54 Freq: NEEDED Status: Active Protocol: Document 12/20/24 09:22 SP (Rec: 12/20/24 10:49 SP [id number]) PT Summary Assessment and Plan Potential Rehabilitation Potential Good Summary Impairments Pain,ROM,Strength,Balance, Cognition,Bed Mobility, Transfers,Gait,Activity Tolerance Progress Towards Goals Slow Progress due to Medical Issues,Slow Progress due to Activity Tolerance Assessment Summary Pt requires 10% A for sit to stand CGA for ambulation using FWW and Min A step mgt no HR, CGA with L HR. pt plans to go home and spouse to assist him 09/05 recommending HHPT. will continue to assess progress. Goals Bed Mobility Goal Independent Transfer Goal Independent Gait Goal Independent Gait Distance 100 Other Goals Pt will ascend and descend 3-4 steps without rail and with LRAD and mod I to allow safe home entrance. Gait with or without LRAD for gait goal Days to Meet Goals 5 Frequency of Treatment Frequency Of Treatment Once a Day Treatment Plan Physical Therapy Treatment Plan Bed Mobility Training,Transfer Training,Gait Training, Therapeutic Exercise,Balance Retraining,Post Op Education, Discharge Planning,Hot or Cold Pack,Neuromuscular Re-ed, Coordination Retraining,Manual Therapy Other Recommendations and Next Treatment bed mob (will sleep on couch), Focus transfers LRAD FWW vs SPC, gait distance, flight stair mgt. Precautions Abdominal Surgery Precautions Log Roll,Lifting Restrictions, Gait Belt above Incisional Area Recommendations To Nursing Amount of Assist Needed 1 Person Assist Discharge Recommendations PT Discharge Recommendations Home with 09/05 Assist Available,Home Health, Outpatient PT Equipment Needed for Home Before FWW Discharge Transportation Needs at Discharge Private Vehicle - PT assist CGA to min Ax1
--- NOTE | 2024-12-20 12:16 | CM.DPNOTE ---
DCP Cont Reviewed chart. Patient discussed in multidisciplinary rounds. Patient is walking the hallways with walker and has advanced to full general diet and is tolerating well so far. Discharge expected soon, pending clearance from general surgery. Plan remains discharge home w/SO w/close outpatient follow up. CM team following clinical course closely in case any discharge needs or concerns arise. JW
--- NOTE | 2024-12-20 12:39 | PM.PN.IH.1 ---
Subjective Subjective Date Patient Seen: 12/20/24 Time Patient Seen: 12:39 Interval history: Art is doing well today. He was tolerating a regular diet and having bowel movements. His chief complaint is that he still feels quite weak. He does not feel like he would be able to go home today. He does still have some serous drainage from his left lower quadrant port site. The volume is decreasing. Exam Vital Signs (past 8 hours): - 12/20/24 09:02 Pulse Rate 70 Respiratory Rate 17 Blood Pressure 134/66 Pulse Oximetry 96 Oxygen Flow Rate 0 Fraction of Inspired Oxygen 24 SaO2/FiO2 Ratio 395 Oxygen Delivery Method Room Air Oxygen Flow Rate 0 Const General: No acute distress Objective Labs 12/20/24 05:31 12/18/24 12:56 Labs: Laboratory Results - last 24 hr 12/20/24 05:31 WBC 16.8 H RBC 3.40 L Hgb 11.2 L Hct 32.5 L MCV 95.7 MCH 32.9 MCHC 34.4 RDW 13.2 Plt Count 314 Total Counted 100 Seg Neutrophils % 76.0 H Band Neutrophils % 4.0 Lymphocytes % (Manual) 10.0 L Monocytes % (Manual) 4.0 Eosinophils % (Manual) 5.0 H Basophils % (Manual) 1.0 Neutrophils # (Manual) 96269 H RBC Morphology Normal morphology [facility] Medical History Hydronephrosis Anemia Bladder incontinence Vision disorder Plantar warts Actinic keratosis (~2003) Allergies (~1989) Plantar fasciitis (~2013) Measles Tinnitus (~2009) History of urinary incontinence (~2018) History of elevated PSA BPH (benign prostatic hyperplasia) (~1999) GERD (gastroesophageal reflux disease) (~2015) Hyperlipidemia LDL goal <100 Hypertension Anxiety Irregular heartbeat Edema of both ankles Surgical History Anesthesia Status post trigger finger release (~2017) History of hernia surgery (~2003) Family History Father Cancer Mother Alzheimer's disease Sister Cancer Grandfather History of heart disease Grandmother Alzheimer's disease Social History household members: significant other Smoking Status: Former smoker Tobacco: How many years used: 30 quit status: quit date established alcohol intake: current substance use type: marijuana Assessment & Plan Assessment and plan (1) S/P laparoscopic appendectomy: Status: Acute Plan Art appears to have recovered well from his ileus but he still quite weak. He may need a few more days to increase his strength before he is able to make it at home. I told him to continue to cover the draining port site until it stops. Time-Based Coding :: [TOTAL MINUTES] spent with patient and on the chart (including review of chart, obtaining history, exam, reviewing outside data, placing orders, documenting exam and treatment plan, and counseling patient) on [DATE]. PROFEE Aquatics Manager Document charge(s): No
[2024-12-20 13:32] VITALS: BP 137/77; PULSE 77; RESP 15; TEMP 36.1; O2SAT 95
[2024-12-20 18:00] VITALS: BP 128/66; PULSE 77; RESP 14; TEMP 35.9; O2SAT 99
[2024-12-21 00:46] VITALS: BP 125/55; PULSE 64; RESP 16; O2SAT 96
[2024-12-21 05:14] LABS: Hematocrit 34.6 % (41-53); Hemoglobin 11.9 g/dL (13.5-17.5); Mean Corpuscular HGB Conc 34.3 % (30-36); Mean Corpuscular Hemoglobin 32.8 PG (26-34); Mean Corpuscular Volume 95.6 fL (80-100); Platelet Count 419 X10^3/uL (150-400); Red Blood Cell Count 3.62 X10^6/uL (4.5-5.9); Red Cell Distribution Width 13.6 % (11.6-14.8); White Blood Cell Count 16.1 X10^3/uL (4.5-11.0)
[2024-12-21 06:20] LABS: Neutrophils Absolute Manual 13363 /uL (3000-5900); Platelet Estimate Increased on smear; RBC Morphology Normal Morphology; Total Cells Counted 100
--- NOTE | 2024-12-21 08:55 | CM.DPNOTE ---
DCP Cont Reviewed chart. Patient discussed w/ Dr Zuniga, rounding surgeon today. Reviewed Dr Sotelo's prog note 12/20; patient is tolerating a regular diet, having bowel movements, doing well. Reviewed therapy notes; Patient cleared for return home w/SO, walking the hallway w/walker, HH vs outpatient PT. Plan remains discharge home w/SO w/close outpatient follow up. CM team following clinical course closely; it appears patient has met medical goals for discharge, will defer to general surgery team. JW
[2024-12-21] MEDS: ENOXAPARIN 40 MG/0.4 ML SYRINGE SUBCUT (09:31)
[2024-12-21 09:35] VITALS: BP 130/72; PULSE 78; RESP 18; TEMP 36.1; O2SAT 98
--- NOTE | 2024-12-21 10:26 | DIET.PN1 ---
Dietary Progress Note Assessment: F/u with pt at bedside. Is doing 50% of meals and apple juice throughout day. Discussed ONS options to help support EER. ONS ordered BID. Discussed adding 2 snacks/small meals or ONS options upon d/c home until able to tolerate his usual PO intakes (usually does 100% of 2 meals at home). Will continue to monitor PO intakes and ONS tolerance. Ht: 182.88 cm Wt: 82 kg BMI: 24.7 Last BM: 12/20/24 (12/20/24 15:08) MNA: Baltazar Score: 19 Diet: 12/19/24 Lunch Regular [General (Regular) Diet] Diet Modifications: Food Texture: Level 7 - Regular Liquid Consistency: Level 0 - Thin Nutrition Percent Meal Consumed 50% 12/20/24 18:00 Percent Meal Consumed 50% 12/20/24 13:32 Percent Meal Consumed 75% 12/20/24 09:30 Percent Meal Consumed 50% 12/19/24 18:00 Percent Meal Consumed 50% 12/19/24 13:00 Percent Meal Consumed refused breakfast 12/19/24 10:45 Labs: RBC 3.62 X10^6/uL (4.5-5.9) L 12/21/24 05:00 Hgb 11.9 g/dL (13.5-17.5) L 12/21/24 05:00 Hct 34.6 % (41-53) L 12/21/24 05:00 Creatinine 1.10 mg/dL (0.66-1.25) 12/18/24 12:56 Lactate 1.0 mmol/L (0.7-2.1) 12/08/24 14:30 Electronically Signed by: Vanessa Chavez 12/21/24 10:26 Clinical Dietitian [address] [id number]
--- NOTE | 2024-12-21 10:56 | DI.CT.S_ITS ---
PROCEDURE: CT ABDOMEN PELVIS W CON INDICATIONS: persistent leukocytosis after lap appy, r/o abscess TECHNIQUE: After the administration of intravenous contrast, axial sections acquired from the lung bases to the pubic symphysis. Coronal and sagittal reformats were performed. For radiation dose reduction, the following was used: automated exposure control, adjustment of mA and/or kV according to patient size. COMPARISON: [facility], CT, CT CHEST ABD PEL W CON, 12/16/2024, 8:51. [facility], CT, CT ABDOMEN PELVIS W CON, 12/08/2024, 14:17. FINDINGS: Image quality: Diagnostic. Lower Chest: Patchy right basilar opacity. Pleural effusions have resolved. ABDOMEN: Liver: No solid mass. Steatosis with lobulated contour. Gallbladder: Minimal pericystic fluid without gross wall thickening. Biliary ducts: No biliary dilation. Pancreas: No ductal dilation. Spleen: Size is within normal limits. Adrenal Glands: No adrenal nodules. Kidneys and Ureters: No hydronephrosis. No solid mass. No complex renal cystic lesion which requires follow up. Stomach and Bowel: As identified on exam of 12/16/2024 there are dilated loops of small bowel although notably improved. Notable portions of the colon are decompressed limiting evaluation. Peritoneum: Persistent minimal perihepatic fluid. No free air. Ventral Wall: No significant ventral hernia. Abdominal Nodes: No retroperitoneal or mesenteric adenopathy by size criteria. Vessels: Aorta and inferior vena cava are normal in size. PELVIS: Pelvic Organs: Unremarkable. Bladder: No bladder wall thickening, accounting for underdistention. Diverticula is present. Pelvic Nodes: No enlarged lymph nodes. Miscellaneous: No inguinal hernias are seen. Bones: No aggressive osseous abnormality. IMPRESSION: No visualized abscess. Persistent appearance of dilated loops of small bowel although improved compared to prior exam on 12/16/2024 consistent with partial small bowel obstruction. Resolution of previous effusions in decreased abdominal fluid. Streaky right basilar opacities possibly representing atelectasis. Dictated by: Mraleny North M.D. on 12/21/2024 at 14:52 Approved by: Marleny North M.D. on 12/21/2024 at 14:59
--- NOTE | 2024-12-21 11:24 | P.OP.COLON_ITS ---
Operative Date/Time/Diagnoses Date of procedure: 12/21/24
--- NOTE | 2024-12-21 11:24 | PM.OP.COLON ---
Operative Date/Time/Diagnoses Date of procedure: 12/21/24
[2024-12-21 12:00] VITALS: RESP 18
--- NOTE | 2024-12-21 15:18 | PC.NURSE ---
Pt states slight discomfort lower abdomen. Resting quietly at intervals Had abd. CT scan this afternoon JENNI PICC intact/patent. Call light w/in reach, pt calls appropriately for needs. Continue w/ plan of care.
--- NOTE | 2024-12-21 15:55 | PT.IPTN ---
Current Diagnoses Acute appendicitis with perforation, localized peritonitis, and gangrene, without abscess (12/08/24) Unspecified intestinal obstruction, unspecified as to partial versus complete obstruction (12/08/24) Ileus, unspecified (12/08/24) Other postprocedural complications and disorders of digestive system (12/08/24) Acquired absence of other specified parts of digestive tract (12/08/24) Surgery Performed Operation Date: 12/10/24 15:15 Actual Procedures p Laparoscopic Appendectomy - Jarrod Sotelo MD Physical Therapy Treatment Note M2 PT-IP Current Condition Start: 12/17/24 08:54 Freq: NEEDED Status: Active Protocol: Document 12/20/24 09:22 SP (Rec: 12/20/24 10:49 SP [id number]) Physical Therapy Current Condition Current Condition Evaluation Date 12/17/24 Treatment Diagnosis POD 6 lap appendectomy, SBO and now NG tube M3 PT-IP Subjective Start: 12/17/24 08:54 Freq: NEEDED Status: Active Protocol: Document 12/21/24 15:55 AB (Rec: 12/21/24 17:01 AB [id number]) Subjective Physical Therapy Visit Type Type Treatment Note Visit Start Time 15:55 Visit Stop Time 16:30 Number of ENGINEERING MANAGER ELECTRONICS Visits 0 Physical Therapy Visit Comments Patient Comments agreeable to do PT M4 PT-IP Mobility and Gait Start: 12/17/24 08:54 Freq: NEEDED Status: Active Protocol: Document 12/21/24 15:55 AB (Rec: 12/21/24 17:01 AB [id number]) PT-Bed Mobility Assessment Rolling Type of Rolling Log Rolling Level of Assist Standby Assistance Supine to Sit Supine to Sit Standby Assistance Sit to Supine Sit to Supine Standby Assistance PT-Transfer Assessment Sit to and From Stand Sit to and from Stand Standby Assistance,1 Person Assistance,Use of Upper Extremities Equipment Transfer Assistive Device Gait Belt,Front Wheeled Walker Orthotic/Prosthetic Devices or Brace: No Transfers Transfer Destination Toilet Transfer Technique ambulated Transfer Ability Level of Assist Standby Assistance,Contact Guard Assistance Comments Mobility Comments pt in bed and agreed to do PT. pt stated that he is not feeling too good today due to recent CT scan and still waiting for result. pt completed log roll supine to sit SBA. able to sit on EOB SBA. sit to stand from EOB SBA and ambulated in room using FWW SBA to CGA ~ 100 ft. pt requested to use the toilet and ambulated tot he toilet. SBA for standing balance while using the toilet . pt ambulated to the sink SBA using fWW. able to complete handwashing, brushing his teeth and grooming SBA. pt ambulated in room without AD ~ 20 ft CGA to min A. pt stated that he will not be able to do stair climbing today but wanted to walk farther and completed ~ 150 ft using FWW SBA to CGA. pt requested to go back to bed. sit to supine SBA log roll. positioned pt in bed. call light and table placed within reach. Gait Assessment Gait Gait Assistance Required: Standby Assistance,Contact Guard Assist,Minimum Assistance Distance (Feet) 150 Able to Maintain Weight Bearing Status Yes During Gait Assistive Devices Assistive Device None,Front Wheeled Walker Orthotic/Prosthetic Devices or Brace: No Gait Deviations General Gait Pattern Decreased Stride Length, Decreased Feet Clearance Factors Limiting Gait Function Factors Limiting Gait Function Decreased Activity Tolerance, Decreased Strength,Difficulty Following Directions,Limited Range of Motion,Poor Balance, Poor Safety Awareness M5 PT-IP Objective Assessments Start: 12/17/24 08:54 Freq: NEEDED Status: Active Protocol: Document 12/17/24 13:37 MB (Rec: 12/17/24 14:14 MB [id number]) Orientation Orientation/Cognition Level of Alertness Alert Orientation Name,Age,Birthday,Month,Date, Year,Day of Week,Place, Situation Language Function Ability No Deficits Noted Safety Awareness Understands Safety Issues Memory Description No Deficits Noted Gross Range of Motion Upper Extremity ROM Assessment Bilaterally Impaired Impairments B shoulder flexion mildly limited Lower Extremity ROM Assessment Bilaterally Impaired Impairments B ankle edema and decreased DF and end-range extension Strength Comments Strength Comments MMT deferred given edema, abdominal distention and dressing, functional strength in legs at least 3/5 today Coordination Assessment Gross Coordination Gross Coordination Impaired Other Assessments Other Other Assessments Edema in LEs, abdomen M6 PT-IP Treatment Start: 12/17/24 08:54 Freq: NEEDED Status: Active Protocol: Document 12/21/24 15:55 AB (Rec: 12/21/24 17:01 AB [id number]) Physical Therapy Treatment Education Education Provided Safety M7 PT-IP Assessment and Plan Start: 12/17/24 08:54 Freq: NEEDED Status: Active Protocol: Document 12/21/24 15:55 AB (Rec: 12/21/24 17:01 AB [id number]) PT Summary Assessment and Plan Potential Rehabilitation Potential Fair Summary Impairments Pain,ROM,Strength,Balance,Bed Mobility,Transfers,Gait, Activity Tolerance Progress Towards Goals Slow Progress due to Medical Issues Assessment Summary pt improving with mobility and able to ambulate ~ 150 ft using FWW SBA to CGA. pt plans to go home and spouse to assist him. Goals Bed Mobility Goal Independent Transfer Goal Independent Gait Goal Independent Gait Distance 100 Other Goals Pt will ascend and descend 3-4 steps without rail and with LRAD and mod I to allow safe home entrance. Gait with or without LRAD for gait goal Days to Meet Goals 5 Frequency of Treatment Frequency Of Treatment Once a Day Treatment Plan Physical Therapy Treatment Plan Bed Mobility Training,Transfer Training,Gait Training, Therapeutic Exercise,Balance Retraining,Post Op Education, Discharge Planning,Hot or Cold Pack,Neuromuscular Re-ed, Coordination Retraining,Manual Therapy Precautions Abdominal Surgery Precautions Log Roll,Lifting Restrictions, Gait Belt above Incisional Area Recommendations To Nursing Amount of Assist Needed 1 Person Assist Discharge Recommendations PT Discharge Recommendations Home with Assistance,Home Health Transportation Needs at Discharge Private Vehicle - PT assist SBA to CGA
--- NOTE | 2024-12-21 17:22 | PM.DS.IH.1 ---
History of Present Illness History of Present Illness Date Patient Seen: 12/21/24 Time Patient Seen: 17:22 Date of Onset of Symptoms: 12/08/24 Chief complaint: RLQ Abd Pain Narrative: Patient awoke from sleep at 3:00 a.m. with right lower quadrant pain. He does not relate this to any abnormal meal. He has had anorexia since. Some nausea no vomiting, normal bowel movement. Patient reports significant right lower quadrant, testicular, and low back pain on the right side., some fevers no chills Discharge Providers Provider Date of admission: 12/08/24 16:15 Discharge Date: 12/21/24 Primary care physician: TD Landeros Consults: 12/15/24 12:25 Consult After Hours PICC Line RN Routine Comment: 12/15/24 12:26 Consult to Dietitian, Adult Routine Comment: Reason For Exam: TPN initiation 12/16/24 23:42 Consult to Physical Therapy Evaluate & Treat Comment: Physician Instructions: Evaluate and Treat Discharge provider: Danny Zuniga MD Summary Hospital Course Discharge Diagnosis: Acute appendicitis with gangrene Hospital Course: Patient underwent laparoscopic appendectomy but had a postoperative ileus. Patient had a persistent leukocytosis postoperatively which he had not been explained. CT scan on the day of discharge was unremarkable for abscess or staple line leak with improving ileus. Status at Discharge Cognitive/behavioral status at discharge: oriented Functional status at discharge: independent ambulation Overall status at discharge: patient is back to baseline Time Spent with Patient Time spent: Less than 30 minutes Exam Vital Signs (past 8 hours): - 12/21/24 09:35 12/21/24 12:00 Temperature 97.0 F L Pulse Rate 78 Respiratory Rate 18 18 Blood Pressure 130/72 Pulse Oximetry 98 Oxygen Flow Rate 0 Fraction of Inspired Oxygen 24 SaO2/FiO2 Ratio 395 Oxygen Delivery Method Room Air Oxygen Flow Rate 0 Narrative Exam Narrative: Incisions are clean, dry, intact with Steri-Strips in place Objective Labs 12/21/24 05:00 12/18/24 12:56 Labs: Laboratory Results - last 24 hr 12/21/24 05:00 WBC 16.1 H RBC 3.62 L Hgb 11.9 L Hct 34.6 L MCV 95.6 MCH 32.8 MCHC 34.3 RDW 13.6 Plt Count 419 H Total Counted 100 Seg Neutrophils % 78.0 H Band Neutrophils % 5.0 Lymphocytes % (Manual) 10.0 L Monocytes % (Manual) 3.0 Eosinophils % (Manual) 4.0 Neutrophils # (Manual) 30987 H Platelet Estimate Increased on smear RBC Morphology Normal morphology [facility] Medical History Hydronephrosis Anemia Bladder incontinence Vision disorder Plantar warts Actinic keratosis (~2003) Allergies (~1989) Plantar fasciitis (~2013) Measles Tinnitus (~2009) History of urinary incontinence (~2018) History of elevated PSA BPH (benign prostatic hyperplasia) (~1999) GERD (gastroesophageal reflux disease) (~2015) Hyperlipidemia LDL goal <100 Hypertension Anxiety Irregular heartbeat Edema of both ankles Surgical History Anesthesia Status post trigger finger release (~2017) History of hernia surgery (~2003) Family History Father Cancer Mother Alzheimer's disease Sister Cancer Grandfather History of heart disease Grandmother Alzheimer's disease Social History household members: significant other Smoking Status: Former smoker Tobacco: How many years used: 30 quit status: quit date established alcohol intake: current substance use type: marijuana Discharge Assessment & Plan Assessment and Plan Assessment: Acute gangrenous appendicitis, postoperative ileus Plan of Treatment: Per physical therapy and discharge planning, patient was appropriate to go home. Discharge Plan Discharge Plan Patient Disposition: Home Discharge orders & Medications Prescriptions: New amoxicillin-pot clavulanate 875-125 mg tablet 1 tab PO BID Qty: 14 0RF meloxicam 15 mg tablet 15 mg PO DAILY Qty: 30 0RF No Action No Known Home Medications Follow up/Referrals: Dai Chavez ARNP [Primary Care Provider] - Diet/Activity/Treatments Diet: Regular Diet comment: Switch to a liquid diet if you feel bloating. Activity: No heavy lifting pushing or pulling over 20 lb for the next week. Cold/Heat Therapy: May apply heat or ice around the incisions as needed, 20 minutes on and 20 minutes off Skin/Wound/Dressing Care Skin care: Wash the skin with mild soap and water. Report to your healthcare provider any signs of infection, such as:: chills, fever, night sweats, increased pain, unusual drainage and unusual redness Dressing: Steri-Strips will fall off within the next week or 2. Visit Report/Discharge Packet Instructions: DI for an Appendectomy Stand Alone Forms: Patient Portal/API, Stroke Signs & Symptoms Discharge Data Primary Care Provider: Dai Chavez Charge Codes Discharge inpatient/observation: [id number]
== END 2024-12-21 19:15 | disposition home or self-care (01) | DRG 398 ==
LOC: ED 15:46 → AC 16:15
PROVIDERS: Surgery; Emergency Provider Emergency Medicine; Family Provider Nurse Practitioner; PCP Nurse Practitioner; Referring Provider Emergency Medicine
PROC: 0DTJ4ZZ Resection of Appendix, Percutaneous Endoscopic Approach (ICD-10-PCS; CPT 44970; principal; 2024-12-10 15:15)
DX: K35.32 Acute appendicitis with perforation, localized peritonitis, and gangrene, without abscess (principal); K91.30 Postprocedural intestinal obstruction, unspecified as to partial versus complete; K91.89 Other postprocedural complications and disorders of digestive system; Z87.891 Personal history of nicotine dependence
CPT/HCPCS: 36415; 36569; 36592; 71045; 71260; 74019; 74177; 80048; 80053; 80061; 80076; 81001; 82962; 83605; 83690; 83735; 84100; 84134; 85025; 85027; 87040; 93005; 93010; 94760; 94762; 96365; 96375; 97116; 97161; 97530; 97535; 99283; 99284; A9270; B4185; B4189; J0134; J0171; J0330; J0780; J1171; J1642; J1650; J1940; J2270; J2405; J2543; J2704; J3010; J3475; Q9967

== ENCOUNTER → 2025-01-02 10:40 | Outpatient (CLI) | payer MEDICARE, BC, SELFPAY ==
[2024-12-08 18:35] VITALS: BMI 24.7
[2025-01-02 11:20] LABS: Hematocrit 34.2 % (41-53); Hemoglobin 11.8 g/dL (13.5-17.5); Mean Corpuscular HGB Conc 34.4 % (30-36); Mean Corpuscular Hemoglobin 32.8 PG (26-34); Mean Corpuscular Volume 95.1 fL (80-100); Platelet Count 426 X10^3/uL (150-400); Red Cell Distribution Width 13.3 % (11.6-14.8); White Blood Cell Count 9.5 X10^3/uL (4.5-11.0)
[2025-01-02 11:35] LABS: Hemoglobin A1C% w Est Avg Glu 5.3 % (4.0-6.0)
[2025-01-02 11:41] LABS: NT-proBNP (BNP-Adult 18+) 730 pg/mL (<450)
[2025-01-02 12:07] LABS: Ferritin 273 ng/mL (18-464)
[2025-01-02 12:09] LABS: Vitamin D 25 Hydroxy (D3) > 126 ng/mL (30.0-100.0)
[2025-01-02 12:12] LABS: TSH w/ Reflex to FT4 2.71 uIU/mL (0.47-4.68)
[2025-01-02 15:55] LABS: Neutrophils Absolute Manual 7315 /uL (3000-5900); Total Cells Counted 100
[2025-01-02 15:56] LABS: Anisocytosis 1+
[2025-01-03 05:37] LABS: Calcium 9.1 mg/dL (8.6-10.2); Parathyroid Hormone, Intact 18 pg/mL (15-65)
== END ==
PROVIDERS: Family Provider Nurse Practitioner; PCP Family Medicine; Referring Provider Family Medicine; Visit Provider Family Medicine
DX: D72.828 Other elevated white blood cell count (principal); R60.1 Generalized edema; Z86.2 Personal history of diseases of the blood and blood-forming organs and certain disorders involving the immune mechanism; R73.09 Other abnormal glucose; Z87.19 Personal history of other diseases of the digestive system; Z90.49 Acquired absence of other specified parts of digestive tract; K91.89 Other postprocedural complications and disorders of digestive system; R93.2 Abnormal findings on diagnostic imaging of liver and biliary tract; R18.8 Other ascites; D64.9 Anemia, unspecified; K56.7 Ileus, unspecified
CPT/HCPCS: 36415; 82306; 82310; 82728; 83036; 83880; 83970; 84443; 85025

== ENCOUNTER → 2025-01-08 12:02 | Outpatient (CLI) | payer MEDICARE, BC, SELFPAY ==
[2024-12-08 18:35] VITALS: BMI 24.7
--- NOTE | 2025-01-08 12:04 | DI.US.S_ITS ---
PROCEDURE: US ABDOMEN LIMITED INDICATIONS: CT liver findings- concern for cirrhosis; ascites/anasarca TECHNIQUE: Real-time focused scanning was performed of the abdomen, with image documentation. COMPARISON: [facility], CT, CT ABDOMEN PELVIS W CON, 12/21/2024, 13:29. FINDINGS: The liver is normal in size and demonstrates no suspicious lesions. The main portal vein demonstrates normal size and demonstrates normal appearing, hepatopetal flow. No findings of gallstones or sludge are seen. The gallbladder wall is not thickened, measuring 3 mm or less. No specific pericholecystic fluid is seen. The sonographic Reyes sign is negative. There is no biliary dilatation, the common bile duct measures 4-5 mm. No significant pancreatic abnormality is seen on these images. IMPRESSION: No significant liver abnormality is seen by ultrasound. No significant ascites is seen. Dictated by: Dank Schmid M.D. on 01/08/2025 at 12:49 Approved by: Dank Schmid M.D. on 01/08/2025 at 12:50
== END ==
PROVIDERS: Family Provider Nurse Practitioner; PCP Family Medicine; Referring Provider Family Medicine; Visit Provider Family Medicine
DX: R93.2 Abnormal findings on diagnostic imaging of liver and biliary tract (principal); R18.8 Other ascites; Z87.19 Personal history of other diseases of the digestive system
CPT/HCPCS: 76705